=== PATIENT | male | born 1945 | race Caucasian/White ===

== ENCOUNTER 2019-02-15 06:00 | Outpatient (RCR) | payer MEDICARE, OTHER, SELFPAY | END 2019-03-15 00:01 | LOC: APT 06:00 | PROVIDERS: Family Provider Family Medicine; Visit Provider Family Medicine | DX: G89.29 Other chronic pain (principal); M54.9 Dorsalgia, unspecified | CPT/HCPCS: 97110 ×6; 97140 ×3; 97163; 97530 ==

== ENCOUNTER 2019-05-05 07:31 | Outpatient (CLI) | payer MEDICARE, OTHER, SELFPAY ==
--- NOTE | 2019-05-05 07:37 | CT_ITS ---
WS: [id number] CT THORACIC SPINE TECHNIQUE: Noncontrast CT of the thoracic spine with coronal and sagittal reformatted images. CLINICAL INFORMATION: CHRONIC BACK PAIN COMPARISON: None. DLP: 1959.[address] scans at [facility] use at least one of these dose optimization techniques: automat ed exposure control; mA and/or kV adjustment per patient size (includes targeted exams where dose is matched to clinical indication); or iterative reconstruction. FINDINGS: Mild thoracic curve convex right. Moderate spondylitic changes thoracic spine. Mild thoracic kyphosis . Prominent right eccentric bridging osteophytes in the mid and lower thoracic spine with preservatio n of the disc spaces. Findings compatible with diffuse idiopathic skeletal hyperostosis. No acute compression fractures. Vertebral body heights and disc space heights well-preserved. No high -grade central canal stenosis. Multilevel mild to moderate bony foraminal narrowing more prominent at right T3-C4, right T5-6, right T10-11, right T11-12 Moderate facet arthropathy lower thoracic spine. Visualized lungs are well aerated. Aortic calcificat ion. Adrenal glands are normal. CT/CT thoracic spin wo con* [id number] IMPRESSION: 1. Mild thoracic curve convex right. No acute compression fractures. Mild thor acic kyphosis. 2. Anterior bridging osteophytes in the mid and lower thoracic spine with pres ervation of the disc spaces. Findings compatible with diffuse idiopathic skelet al hyperostosis described above. 3. Multilevel mild to moderate bony foraminal narrowing more prominent right T 3-C4, right T5-6, right T10-11, and right T11-12 4. No high-grade central canal stenosis. 5. Moderate facet arthropathy lower thoracic spine.
--- NOTE | 2019-05-05 07:37 | CT_ITS ---
WS: [id number] CT CERVICAL SPINE TECHNIQUE: Noncontrast CT of the cervical spine with coronal and sagittal reformatted images. CLINICAL INFORMATION: CHRONIC BACK PAIN COMPARISON: None. DLP: 677.[address] scans at [facility] use at least one of these dose optimization techniques: automat ed exposure control; mA and/or kV adjustment per patient size (includes targeted exams where dose is matched to clinical indication); or iterative reconstruction. FINDINGS: Normal cervical alignment. Normal C1-2 articulation. Mild spondylitic changes. No high-grade central canal stenosis. C2-C3: Normal. C3-C4: Mild disc osteophyte complex with endplate ridging. Mild bilateral bony foraminal narrowing. M ild to moderate facet arthropathy. Mild central canal stenosis. C4-C5: Disc osteophyte complex with endplate ridging. Mild central canal stenosis. Moderate left and mild right bony foraminal narrowing. Moderate facet arthropathy. C5-C6: No significant disc bulging. Moderate right and mild left bony foraminal narrowing. Moderate f acet arthropathy. Spinal canal is patent. C6-C7: Disc osteophyte complex with endplate ridging. Tiny central disc osteophyte protrusion. Modera te right and mild left foraminal narrowing. Mild to moderate facet arthropathy. C7-T1: Osteophytic ridging with mild/moderate right and no significant left foraminal narrowing. Spin al canal is patent. Visualized posterior nasopharynx: Normal. Prevertebral soft tissues: Normal. CT/CT cervical spin wo con* [id number] IMPRESSION: 1. Mild spondylitic changes. Normal cervical alignment. 2. Mild central canal stenosis C3-C4 C4-C5 due to disc osteophyte complexes. 3. Multilevel bony foraminal narrowing worse at left C4-C5, right C5-C6, right C6-7, and right C7-T1. 4. Asymmetric moderate facet arthropathy worse at left C4-C5 and bilateral C5- C6.
== END 2019-05-05 07:32 | disposition home or self-care (01) ==
PROVIDERS: Family Provider Family Medicine; PCP Family Medicine; Visit Provider Family Medicine
DX: M48.02 Spinal stenosis, cervical region (principal); M47.892 Other spondylosis, cervical region; M50.20 Other cervical disc displacement, unspecified cervical region; G89.29 Other chronic pain; M47.814 Spondylosis without myelopathy or radiculopathy, thoracic region; M48.04 Spinal stenosis, thoracic region; M25.78 Osteophyte, vertebrae; M47.812 Spondylosis without myelopathy or radiculopathy, cervical region
CPT/HCPCS: 72125; 72128

== ENCOUNTER → 2020-10-12 09:20 | Outpatient (BNVA) | payer MEDICARE, OTHER, SELFPAY | PROVIDERS: Family Provider Family Medicine; PCP Family Medicine; Visit Provider Surgery | DX: Z20.822 Contact with and (suspected) exposure to COVID-19 (principal) | CPT/HCPCS: 87635 ==

== ENCOUNTER 2020-10-18 11:20 | Day surgery (SDC) | payer MEDICARE, OTHER, SELFPAY ==
--- NOTE | 2020-10-18 12:37 | ANES.PREANE2 ---
Pre-Anesthetic Assessment Pre-Anesthetic Assessment: Height/Weight: Height 1.75 m Weight 86.183 kg Preop Diagnosis: upper gi symptoms Proposed Procedure: Operation Date: 10/18/20 10:15 Proposed Procedures p EGD 88346 k21.9(Not Applicable) - Sean Yu MD Familial anesthetic complications: none Was Beta Michael taken within 24 hours: Yes Was Clonidine taken within 24 hours: N/A Last intake: > 8 hrs Social: Social History: No alcohol Exam: Pre-Anes Outpt Exam: alert, oriented x 3, clear to auscultation bilaterally and regular rate & rhythm Airway: Cervical ROM: WNL MP: 3 Dentition: Full CV/HEM: CV/HEM: CAD (stents in 2018 - holding plavix) and HTN Comments: pacemaker EF 35% per patient unable to achieve > 4 METS GI: GI: GERD Anesthetic Plan: ASA status: 4 Anesthesia: MAC Risk of > 500 ml blood loss (7ml/kg in children): No PFSH Anesthesia PFSH: Medical History ASHD (arteriosclerotic heart disease) Cardiomyopathy Carotid stenosis CHF (congestive heart failure), NYHA class II GERD (gastroesophageal reflux disease) Glaucoma HTN (hypertension) Hyperlipidemia ICD (implantable cardioverter-defibrillator) in place Surgical History History of colonoscopy (~2000) S/P hemorrhoidectomy S/P PTCA (percutaneous transluminal coronary angioplasty) Family History Father , AGE 50 CAD (coronary artery disease) Mother , AGE 77 CHF (congestive heart failure) Social History Smoking and tobacco status: never smoked Second hand smoke exposure: No Alcohol intake: never Lives independently: Yes Household members: spouse Marital status: Current occupational status: retired History of recent travel: No Current gender identity: Male Data Anesthesia Cardiac Studies: No Data to Display
[2020-10-18 12:56] VITALS: BP 136/74; PULSE 72; RESP 18; TEMP 36.4; O2SAT 99
[2020-10-18] MEDS: sodium chloride 0.9% 1,000 ML 30 ML IV (13:07)
--- NOTE | 2020-10-18 13:45 | W.PM.OPSFHP ---
Same Day Surgery H&P Indication for Procedure/HPI DATE OF PROCEDURE: October 18, 2020 CHIEF COMPLAINT/INDICATIONFOR SURGICAL PROCEDURE: GERD/EGD PREOP DIAGNOSIS: upper gi symptoms PLANNED PROCEDRUE: Operation Date: 10/18/20 10:15 Proposed Procedures p EGD 96720 k21.9(Not Applicable) - Sean Yu MD Medications/Allergies* Home Medications Medication Instructions Recorded Confirmed Type alprazolam 0.5 mg tablet 0.5 mg PO TID PRN 05/16/19 10/18/20 History clopidogrel 75 mg tablet 75 mg PO DAILY 05/16/19 10/16/20 History latanoprost 0.005 % eye drops 1 drop OPHTHALMIC (EYE) DAILY 05/16/19 10/18/20 History nitroglycerin 0.4 mg sublingual 0.4 mg SUBLINGUAL Q5M PRN 05/16/19 10/16/20 History tablet olmesartan 20 mg tablet 20 mg PO DAILY 05/18/19 10/18/20 History omeprazole magnesium 20 mg 20 mg PO DAILY 09/15/19 10/18/20 History tablet,delayed release rosuvastatin 10 mg tablet 10 mg PO DAILY 10/03/20 10/18/20 History Allergies/Adverse Reactions Allergy/AdvReac Type Severity Reaction Status Date / Time amlodipine [From Norvasc] Allergy Unknown Unknown Verified 10/16/20 14:19 clonidine Allergy Unknown Unknown Verified 10/16/20 14:19 doxycycline Allergy Unknown Unknown Verified 10/16/20 14:19 hydrochlorothiazide Allergy Unknown Unknown Verified 10/16/20 14:19 lisinopril Allergy Unknown Unknown Verified 10/16/20 14:19 metoprolol Allergy Unknown Unknown Verified 10/16/20 14:19 sulfamethoxazole Allergy Unknown Unknown Verified 10/16/20 14:19 [From Bactrim] trimethoprim [From Bactrim] Allergy Unknown Unknown Verified 10/16/20 14:19 Current Medications: Generic Name Dose Route Start Last Admin Trade Name Freq PRN Reason Stop Dose Admin Sodium Chloride 1,000 mls @ 30 mls/hr 10/18/20 11:45 10/18/20 13:07 Sodium Chloride 0.9% IV 10/19/20 11:44 30 mls/hr .Q24H WADE Administration Pertinent History/Comorbid Conditions* Medical History (Updated 09/24/20 @ 09:24 by Sean Yu MD) ASHD (arteriosclerotic heart disease) Cardiomyopathy Carotid stenosis CHF (congestive heart failure), NYHA class II GERD (gastroesophageal reflux disease) Glaucoma HTN (hypertension) Hyperlipidemia ICD (implantable cardioverter-defibrillator) in place Surgical History (Updated 09/24/20 @ 09:22 by Sean Yu MD) History of colonoscopy (~2000) S/P hemorrhoidectomy S/P PTCA (percutaneous transluminal coronary angioplasty) Family History (Updated 05/16/19 @ 08:33 by Terri Oakley RN) Father, AGE 50 Mother, AGE 77 CAD (coronary artery disease) Father CHF (congestive heart failure) Mother Social History Smoking and tobacco status: never smoked Second hand smoke exposure: No Alcohol intake: never Lives independently: Yes Household members: spouse Marital status: Current occupational status: retired History of recent travel: No Current gender identity: Male Pertinent Exam Findings alert, oriented x 3 and regular rate & rhythm Recommendations Surgery/Procedure today Coding Level of Care Code Acute Private Investigator for Cipriano Roca
--- NOTE | 2020-10-18 15:00 | ANE.PACU2 ---
Inpatient post-anesthesia follow up: Airway intact: Yes Vital signs: Temperature 97.9 F Pulse Rate 64 Respiratory Rate 16 Blood Pressure 135/68 Pulse Oximetry 96 Oxygen Delivery Me thod Room Air Oxygen Flow Rate 3 Fraction of Inspir ed Oxygen Hydration adequate: Yes Nausea and vomiting: No Pain level: 1 Mental status: Baseline
[2020-10-18 15:03] VITALS: BP 118/62; PULSE 71; RESP 18; TEMP 36.3; O2SAT 90
[2020-10-18 15:20] VITALS: BP 135/68; PULSE 64; RESP 16; TEMP 36.6; O2SAT 96
== END 2020-10-18 15:45 | disposition home or self-care (01) ==
PROVIDERS: PCP Family Medicine; Visit Provider Surgery
PROC: 0DJ08ZZ Inspection of Upper Intestinal Tract, Via Natural or Artificial Opening Endoscopic (ICD-10-PCS; CPT 43235; principal; 2020-10-18 10:15)
DX: K21.9 Gastro-esophageal reflux disease without esophagitis (principal); K29.70 Gastritis, unspecified, without bleeding; K57.30 Diverticulosis of large intestine without perforation or abscess without bleeding; I25.10 Atherosclerotic heart disease of native coronary artery without angina pectoris; Z95.5 Presence of coronary angioplasty implant and graft; I10 Essential (primary) hypertension; Z95.0 Presence of cardiac pacemaker; I11.0 Hypertensive heart disease with heart failure; I50.9 Heart failure, unspecified; E78.5 Hyperlipidemia, unspecified
CPT/HCPCS: 43239; 88305; 96360; 96361; J2704; J7030

== ENCOUNTER 2020-10-26 11:17 | Outpatient (CLI) | payer MEDICARE, OTHER, SELFPAY ==
[2020-10-26] MEDS: iohexol 300 mg/mL 50 mL Btl PO (11:36)
--- NOTE | 2020-10-26 13:00 | CT_ITS ---
WS: [id number] CT scan of the abdomen and pelvis with Oral and IV contrast. Additional two-dimensional coronal and s agittal reconstruction was performed. 10/26/2020 Clinical Data: K57.10 - Diverticulosis of small intestine without perfor... Comparison: None. DLP: 1146.[address] scans at [facility] use at least one of these dose optimization techniques: automat ed exposure control; mA and/or kV adjustment per patient size (includes targeted exams where dose is matched to clinical indication); or iterative reconstruction. Findings: The lower lungs show no nodules, masses or effusions. Pacemaker wires are in the right ventricle. Th e liver, spleen, adrenal glands and pancreas are normal. There are small gallstones in the gallbladde r. The kidneys show equal bilateral contrast excretion with no cyst or masses. The abdominal aorta is normal in size. No appendicitis or diverticulitis is seen. Oral contrast is in the stomach, small bowel and ascending colon and there is no bowel dilatation. No abscess, adenopathy, ascites, mass, obstruction or free a ir is seen. The bladder is unremarkable. No inguinal hernia is seen. The bones of the lower thorax, lumbar spine, pelvis, and hips show only degenerative disc disease at L5-S1. CT/CT abdomen pelvis w con* [id number] Impression: 1. Negative for acute intra-abdominal or pelvic abnormalities. 2. Small gallstones.
[2020-10-26 13:08] LABS: Blood Urea Nitrogen 17 mg/dL (8-23)
[2020-10-26] MEDS: iodixanol 320 mg/mL 100mL Btl IV (13:14)
== END 2020-10-26 11:18 | disposition home or self-care (01) ==
LOC: RADWPI 11:20
PROVIDERS: PCP Family Medicine; Visit Provider Surgery
DX: K57.10 Diverticulosis of small intestine without perforation or abscess without bleeding (principal); K80.80 Other cholelithiasis without obstruction
CPT/HCPCS: 74177; 82565; 84520; Q9967

== ENCOUNTER 2020-12-03 15:40 | Outpatient (CLI) | payer MEDICARE, OTHER, SELFPAY ==
--- NOTE | 2020-12-03 15:45 | USCV_ITS ---
Bobo Obdulio Age: 75 Gender: M : 1945 Exam Date: 12/03/2020 16:06 Ordering Phys: Juanjo Esparza M.D ([email or web address]) Technologist: RENETTA Exam Location: [facility] [place] Indication: HEART FAILURE BP: 118 / 65 HR: 61 Rhythm: Sinus Technical Quality: Adequate MEASUREMENTS (Male / Female) Normal Values 2D ECHO LV Diastolic Diameter PLAX 5.4 cm 4.2 - 5.9 / 3.9 - 5.3 cm LV Systolic Diameter PLAX 4.7 cm IVS Diastolic Thickness 0.6 cm 0.6 - 1.0 / 0.6 - 0.9 cm IVS Systolic Thickness 0.9 cm LVPW Diastolic Thickness 0.8 cm 0.6 - 1.0 / 0.6 - 0.9 cm LVPW Systolic Thickness 0.8 cm LVOT Diameter 2.0 cm LV Ejection Fraction 2D Teich 29.0 % LV Ejection Fraction MOD 2C 35.1 % LV Ejection Fraction 2C AL 34.3 % LA Diameter 3.7 cm LA Width 3.6 cm LA Height 5.5 cm RA Width 5.2 cm RA Height 4.3 cm Aorta at Sinotubular Diameter 2.1 cm DOPPLER AV Peak Velocity 114.0 cm/s LVOT Peak Velocity 59.0 cm/s AV Area Cont Eq vti 1.8 cm squared AV Area Cont Eq pk 1.7 cm squared MV Peak Velocity 548.0 cm/s MV Area PHT 4.5 cm squared Mitral E to A Ratio 1.0 MV E' Velocity 74.0 cm/s TR Peak Velocity 236.0 cm/s TR Peak Gradient 22.3 mmHg TR Mean Velocity 166.4 cm/s TR Mean Gradient 11.8 mmHg TR Velocity Time Integral 74.2 cm Right Atrial Pressure 3.0 mmHg Pulmonary Artery Systolic Pressu 25.3 mmHg PV Peak Velocity 62.0 cm/s RV Acceleration Time 0.1 s RV Ejection Time 0.3 s RV AcT/ET 0.4 FINDINGS Left Ventricle Left ventricle is mildly dilated. LV systolic function is severely reduced with approximate EF of 20-25%. Accurate assessment of regional wall motion abnormalities not possible because of poor visualization. Grade 2 diastolic dysfunction Right Ventricle The right ventricle is normal in size and function. Right Atrium The right atrium is normal in size. Left Atrium The left atrium is normal in size. Mitral Valve Structurally normal mitral valve without significant stenosis or prolapse. There is trace mitral regurgitation. Aortic Valve Aortic valve is thickened without stenosis. There is no aortic regurgitation. Tricuspid Valve Structurally normal tricuspid valve without significant stenosis or regurgitation. Insufficient TR jet to calculate RVSP Pulmonic Valve Structurally normal pulmonic valve without significant stenosis. There is no pulmonic regurgitation. Pericardium Normal pericardium without effusion. Aorta Normal ascending aorta dimension. CONCLUSIONS Technically limited quality echocardiogram because of poor ultrasonic windows LV is dilated LV systolic function is severely reduced with EF of 20-25% Grade 2 diastolic dysfunction Trace mitral regurgitation Compared to prior echocardiogram from 2018, no significant changes are noted Juanjo Esparza MD (Electronically Signed) Final Date: 09 December 2020 12:15 S
== END 2020-12-03 15:41 | disposition home or self-care (01) ==
LOC: US 15:41
PROVIDERS: PCP Family Medicine; Visit Provider Internal Medicine
DX: I50.9 Heart failure, unspecified (principal); I34.0 Nonrheumatic mitral (valve) insufficiency
CPT/HCPCS: 93306

== ENCOUNTER 2020-12-04 09:15 | Outpatient (CLI) | payer MEDICARE, OTHER, SELFPAY ==
--- NOTE | 2020-12-04 09:30 | US_ITS ---
WS: [id number] ULTRASOUND ABDOMEN LIMITED CLINICAL INFORMATION: R10.9 - Unspecified abdominal pain COMPARISON: None. FINDINGS: Prominent bowel gas Liver Size: Normal. Craniocaudal length: 13.7 cm. Echogenicity: Normal. Surface nodularity: None. Mass (size and location): None. Bile ducts Intrahepatic ducts: Normal. Common bile duct diameter: 0.4 cm. Gallbladder Normal. Gallstones: None. Gallbladder sludge: None. Gallbladder wall thickening: None. Pericholecystic fluid: None. Sonographic Priest sign: Absent. Pancreas Normal as visualized. Right kidney: Normal. Hydronephrosis: None. Size: 9.5 cm x 4.7 cm x 5.5 cm. Abdominal aorta and IVC Visualized portions are normal. Ascites: None. US/US gall bladder [id number] IMPRESSION: Normal abdominal ultrasound. Prominent bowel gas.
== END 2020-12-04 09:16 | disposition home or self-care (01) ==
LOC: US 09:17
PROVIDERS: PCP Family Medicine; Visit Provider Surgery
DX: R10.9 Unspecified abdominal pain (principal)
CPT/HCPCS: 76705

== ENCOUNTER 2020-12-07 08:55 | Outpatient (CLI) | payer MEDICARE, OTHER, SELFPAY ==
--- NOTE | 2020-12-07 10:00 | NM_ITS ---
WS: [id number] NUCLEAR MEDICINE HIDA SCAN CLINICAL INFORMATION: R10.9 - Unspecified abdominal pain TECHNIQUE: Following intravenous administration of 4.2 mCi of technetium 99m mebrofenin, images of th e abdomen were obtained over the course of 60 minutes. Next, gallbladder ejection fraction was determ ined by obtaining preprandial and one-hour postprandial images of the gallbladder following oral riccardo stion of Ensure. COMPARISON: Ultrasound November 2020 FINDINGS: Normal hepatic uptake at 5 minutes. Gallbladder is visualized by 10 minutes. No evidence of acute cho lecystitis. Normal hepatic excretion. Normal common bile duct activity. Small bowel activity is visua lized. Gallbladder ejection fraction 86% within normal limits. No evidence of chronic cholecystitis. NM/NM hepatobiliary w phar* [id number] IMPRESSION: 1. No evidence of acute or chronic cholecystitis. 2. Gallbladder ejection fraction 86% within normal limits.
== END 2020-12-07 08:56 | disposition home or self-care (01) ==
LOC: RAD 08:59
PROVIDERS: PCP Family Medicine; Visit Provider Surgery
DX: R10.9 Unspecified abdominal pain (principal)
CPT/HCPCS: 78227; A9537

== ENCOUNTER 2020-12-23 23:02 | Inpatient (IN) | payer MEDICARE, OTHER, SELFPAY ==
[2020-12-23 23:04] VITALS: BP 139/88; PULSE 80; RESP 20; O2SAT 100; BMI 28.8
--- NOTE | 2020-12-23 23:18 | XRR_ITS ---
PROCEDURE INFORMATION: Exam: XR Chest Exam date and time: 12/23/2020 11:18 PM Age: 75 years old Clinical indication: Other: V tach; Prior surgery; Surgery date: 6+ months; Surgery type: Defib; Additional info: Cp TECHNIQUE: Imaging protocol: XR of the chest. Views: 1 view. COMPARISON: CR Chest 1 [place] [id number] 11/11/2017 12:49 PM FINDINGS: Tubes, catheters and devices: Left chest ICD with unremarkable positioning. Lungs: Unremarkable. No consolidation. Pleural spaces: Unremarkable. No pleural effusion. No pneumothorax. Heart/Mediastinum: Unremarkable. No cardiomegaly. Bones/joints: Unremarkable. XR/XR chest 1V portable [id number] IMPRESSION: No acute pulmonary disease. Radiation Dose CTDIVOL = (mGy): DLP = (mGy-cm)
--- NOTE | 2020-12-23 23:19 | ECG_ITS ---
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 Measurements Intervals [place] Rate: 84 P: 192 NC: 179 QRS: -78 QRSD: 247 T: 115 QT: 462 QTc: 549 Interpretive Statements ELECTRONIC ATRIAL PACEMAKER ELECTRONIC VENTRICULAR PACEMAKER MARKED ST ELEVATION, CONSIDER ANTERIOR INJURY [MARKED ST ELEVATION W/O NORMALLY INFLECTED T-WAVE IN V2-V5] ACUTE VA Compared to ECG 11/09/2017 09:19:44 ST (T wave) deviation now present Sinus rhythm no longer present Right bundle-branch block no longer present Left posterior fascicular block no longer present Myocardial infarct finding still present Electronically Signed On 12-24-2020 14:25:39 CDT by Juanjo Esparza M.D. [id number]
--- NOTE | 2020-12-23 23:24 | PC.NURSE ---
EMS placed 20G IV to left hand infiltrated. IV dc'd.
[2020-12-23 23:29] LABS: Basophils # 0.1 10^3/uL (0.0-0.1); Basophils % 0.7 %; Eosinophils # 0.5 10^3/uL (0.0-0.8); Eosinophils % 4.8 %; Hemoglobin 14.7 g/dL (11.7-16.6); Lymphocytes # 2.6 10^3/uL (0.8-4.8); Mean Corpuscular Hemoglobin 27.4 pg (28.0-34.0); Mean Corpuscular Volume 85.8 fl (80-94); Mean Platelet Volume 11.2 fL (7.4-10.4); Monocytes # 0.7 10^3/uL (0.2-0.9); Monocytes % 6.8 %; Neutrophils # 6.37 10^3/uL (1.8-7.7); Neutrophils % 62.4 %; Nucleated Red Blood Cells % 0 %; Platelet Count 173 10^3/cmm (130-400); Red Blood Count 5.36 10^6/uL (4.1-5.3); Red Cell Distribution Width 16.2 % (12.1-15.1); White Blood Count 10.2 10^3/uL (4.0-10.0)
[2020-12-23 23:39] LABS: INR 1.03 (0.8-1.2)
[2020-12-23 23:46] LABS: Troponin(5th) Baseline 46 ng/L (0-15)
[2020-12-23 23:56] LABS: Alanine Aminotransferase 20 U/L (0-41); Albumin Level 3.7 g/dL (3.5-5.2); Alkaline Phosphatase 115 IU/L (40-130); Anion Gap 16.3 (5-19); Aspartate Amino Transferase 31 U/L (0-40); Blood Urea Nitrogen 16 mg/dL (8-23); Calcium 8.8 mg/dL (8.5-10.5); Carbon Dioxide 22 mmol/L (22-29); Chloride 105 mmol/L (98-107); Creatine Phosphokinase 134 U/L (39-308); Globulin 3.3 g/dL (1.3-4.6); Glucose 124 mg/dL (65-115); NT Pro B Type Natriuretic Pept 568 pg/mL (0-125); Osmolality Calculated 291 mOsm/kg (285-295); Potassium 4.3 mmol/L (3.5-5.1); Sodium 139 mmol/L (136-145); Total Bilirubin 0.4 mg/dL (0.15-1.2)
[2020-12-24] VITALS (49 sets, daily range): BP systolic 93–156; BP diastolic 47–108; PULSE 61–85; RESP 14–27; TEMP 35.8–37.4; O2SAT 89–99
--- NOTE | 2020-12-24 01:19 | ECG_ITS ---
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 Measurements Intervals [place] Rate: 68 P: 28 NH: 208 QRS: -77 QRSD: 240 T: 99 QT: 470 QTc: 500 Interpretive Statements ELECTRONIC VENTRICULAR PACEMAKER MARKED ST ELEVATION, CONSIDER ANTERIOR INJURY [MARKED ST ELEVATION W/O NORMALLY INFLECTED T-WAVE IN V2-V5] Compared to ECG 12/23/2020 23:03:04 Atrial-paced complex(es) or rhythm no longer present ST (T wave) deviation still present Myocardial infarct finding still present Electronically Signed On 12-24-2020 15:55:03 CDT by Juanjo Esparza M.D. [email or web address]
--- NOTE | 2020-12-24 02:46 | W.ED.ARRPALP ---
HPI - Arrhythmia/Palpitations General: Chief Complaint: Arrhythmia/Palpitations Stated Complaint: v tach History of Present Illness: HPI narrative: 75-year-old male with a history of coronary disease. He had 4 stents placed back in 2018. He is pacemaker dependent. He had an episode of chest discomfort at home with diaphoresis, dizziness, near syncope. He was found to be in ventricular tachycardia with a blood pressure 60 systolic in the field, and cardioverted onsite. His chest pain is essentially resolved. He is mildly short of breath. MD complaint: heart racing and palpitations Onset (ago): hour(s) Duration: constant Severity: severe Context: occurred during rest (Watching television) Arrhythmia history: pacemaker Associated symptoms: Reports diaphoresis, nausea, pre-syncope, sense of impending doom and short of breath; Deny vomiting Treatments prior to arrival: cardioversion Review of Systems Const: Reports: diaphoresis Eyes: Reports: blurry vision Card: Reports: chest pain, palpitations and pre-syncope Resp: Reports: dyspnea; Denies: productive cough or non-productive cough GI: Reports: nausea; Denies: abdominal pain or vomiting PFSH ED PFSH: Medical History ASHD (arteriosclerotic heart disease) Cardiomyopathy Carotid stenosis CHF (congestive heart failure), NYHA class II GERD (gastroesophageal reflux disease) Glaucoma HTN (hypertension) Hyperlipidemia ICD (implantable cardioverter-defibrillator) in place Surgical History H/O esophagogastroduodenoscopy (10/18/20) History of colonoscopy (~2000) S/P hemorrhoidectomy S/P PTCA (percutaneous transluminal coronary angioplasty) Family History Father , AGE 50 CAD (coronary artery disease) Mother , AGE 77 CHF (congestive heart failure) Social History Second hand smoke exposure: No Alcohol intake: never Lives independently: Yes Household members: spouse Marital status: Current occupational status: retired History of recent travel: No Current gender identity: Male Physical Exam Const: COMMON NORMALS: no acute distress, patient oriented x3 and alert GENERAL APPEARANCE: not ill appearing HENMT: COMMON NORMALS: normocephalic HEAD & SCALP: normocephalic Eye: COMMON NORMALS: EOMs intact bilaterally Chest: COMMONS NORMALS: normal inspection of the chest Resp: COMMON NORMALS: normal respiratory effort, No use of accessory muscles and clear to auscultation bilaterally AUSCULTATION: clear to auscultation bilaterally Cardio: COMMON NORMALS: regular rate and regular rhythm RATE: regular rate RHYTHM: regular rhythm GI: COMMON NORMALS: Normal to inspection, nondistended, normoactive bowel sounds present, Soft to palpation and non-tender PALPATION: Yes Soft to palpation Neuro: COMMON NORMALS: patient oriented x3 SENSORIUM/ORIENTATION: Yes alert Course Consultations: Consultation #1: yen Consultation #2: Isaias Vital Signs: Vital signs: Vital Signs Temperature 97.8 F 12/24/20 02:52 Pulse Rate 69 12/24/20 02:52 Respiratory Rate 17 12/24/20 02:52 Blood Pressure 141/79 12/24/20 02:52 Pulse Oximetry 96 12/24/20 02:52 MDM - Arrhythmia/Palpitations MDM Narrative: Medical decision making narrative: 75-year-old male patient cardioverted in the field for ventricular tachycardia. His symptoms are minimal at this point. He is little short of breath. His EKG shows a paced rhythm. He has been paced on the monitor. His vital signs are otherwise stable. His chest x-ray is negative. His first troponin is mildly elevated, but second 1 is 518 indicative of ventricular tachycardia and cardioversion his 6-hour troponin will be followed. We consulted cardiology from the ER. Recommendations, since the patient has not had another arrhythmia and is paced, or no antiarrhythmics at this point, and watch closely in the ICU for need for amiodarone given any further arrhythmias. He will see the patient later in the morning Lab Data: Labs: Lab Results 12/23/20 12/23/20 12/23/20 23:19 23:19 23:19 WBC 10.2 10^3/uL H 10 ^3/uL (4.0-10.0) RBC 5.36 10^6/uL H 10 ^6/uL (4.1-5.3) Hgb 14.7 g/dL g/dL (11.7-16.6) Hct 46.0 % % (42.0-52.0) MCV 85.8 fl fl (80-94) MCH 27.4 pg L pg (28.0-34.0) MCHC 32.0 g/dL g/dL (30.0-36.0) RDW 16.2 % H % (12.1-15.1) Plt Count 173 10^3/cmm 10^3 /cmm (130-400) MPV 11.2 fL H fL (7.4-10.4) Neut % (Auto) 62.4 % % Lymph % (Auto) 25.0 % % [place] % (Auto) 6.8 % % Eos % (Auto) 4.8 % % Baso % (Auto) 0.7 % % Neut # (Auto) 6.37 10^3/uL 10^3 /uL (1.8-7.7) Lymph # (Auto) 2.6 10^3/uL 10^3/ uL (0.8-4.8) [place] # (Auto) 0.7 10^3/uL 10^3/ uL (0.2-0.9) Eos # (Auto) 0.5 10^3/uL 10^3/ uL (0.0-0.8) Baso # (Auto) 0.1 10^3/uL 10^3/ uL (0.0-0.1) Nucleated RBC % (a uto) 0 % % Nucleated RBCs # 0.0 /100WBC /100W BC PT 13.80 SECONDS SEC ONDS (12.1-14.9) INR 1.03 (0.8-1.2) APTT 25.0 SECONDS SECO NDS (23.9-36.7) Sodium 139 mmol/L mmol/L (136-145) Potassium 4.3 mmol/L mmol/L (3.5-5.1) Chloride 105 mmol/L mmol/L (98-107) Carbon Dioxide 22 mmol/L mmol/L (22-29) Anion Gap 16.3 (5-19) BUN 16 mg/dL mg/dL (8-23) Creatinine 1.3 mg/dL H mg/dL (0.7-1.2) GFR Calculation Not Reportable Glucose 124 mg/dL H mg/dL (65-115) Calculated Osmolal ity 291 mOsm/kg mOsm/ kg (285-295) Calcium 8.8 mg/dL mg/dL (8.5-10.5) Total Bilirubin 0.4 mg/dL mg/dL (0.15-1.2) AST 31 U/L U/L (0-40) ALT 20 U/L U/L (0-41) Alkaline Phosphata se 115 IU/L IU/L (40-130) Creatine Kinase 134 U/L U/L (39-308) Troponin T Baselin e Troponin T 120 Min [place] Delta Troponin T NT-Pro-B Natriuret Pep 568 pg/mL H pg/mL (0-125) Total Protein 7.0 g/dL g/dL (6.6-8.7) Albumin 3.7 g/dL g/dL (3.5-5.2) Globulin 3.3 g/dL g/dL (1.3-4.6) 12/23/20 12/24/20 23:19 01:30 WBC RBC Hgb Hct MCV MCH MCHC RDW Plt Count MPV Neut % (Auto) Lymph % (Auto) [place] % (Auto) Eos % (Auto) Baso % (Auto) Neut # (Auto) Lymph # (Auto) [place] # (Auto) Eos # (Auto) Baso # (Auto) Nucleated RBC % (a uto) Nucleated RBCs # PT INR APTT Sodium Potassium Chloride Carbon Dioxide Anion Gap BUN Creatinine GFR Calculation Glucose Calculated Osmolal ity Calcium Total Bilirubin AST ALT Alkaline Phosphata se Creatine Kinase Troponin T Baselin e 46 ng/L H ng/L (0-15) Troponin T 120 Min [place] 518.8 ng/L H ng/L (0-15) Delta Troponin T 472.8 ABS# H* ABS # (0-10) NT-Pro-B Natriuret Pep Total Protein Albumin Globulin Discharge Plan Discharge Patient Disposition: Admitted As Inpatient Admit Provider: Ivana Santos Clinical Impression: Chest pain, Ventricular tachycardia Condition: Fair Coding Level of Care Code ED Wafer Substrate Tester for g Fwd Exam Detailed
[2020-12-24 02:48] LABS: Troponin 5 2HR 518.8 ng/L (0-15); Troponin 5 2HR Delta 472.8 ABS# (0-10)
--- NOTE | 2020-12-24 04:05 | PC.NURSE ---
Patient admitted to ICU 11, oriented to room, appropriate monitoring systems applied. All questions, concerns answered. Education given. Call light within reach.
[2020-12-24 04:20] LABS: Add Urine Microscopic? NO; Charge for UA Resulting for Rev
--- NOTE | 2020-12-24 04:30 | PC.NURSE ---
Notified Dr. Santos re: EKG discrepancy. According to RT, initial EKG performed upon patient arrival around 2319. Second EKG not performed at appropriate time, instead performed at 0343. Dr. Santos made aware of abnormal EKG, relayed to independent living specialist, patient updated on POC.
[2020-12-24 04:52] LABS: Bilirubin Urine Neg (Negative); Blood Urine Neg (Negative); Glucose Urine UA Norm (Normal); Ketones Urine Negative (Negative); Leukocyte Esterase Urine Negative (Negative); Nitrate Urine Negative (Negative); Protein Urine Neg (Negative); Urine Appearance Clear (CLEAR); Urine Color Yellow (Yellow); Urobilinogen Urine Norm (Negative); pH Urine 5 (5-7)
--- NOTE | 2020-12-24 04:52 | PM.HP ---
Providers/Chief Complaint Admitting Physician: Ivana Santos MD Primary Care Provider: Fermin Carlisle MD Chief Complaint: v tach History of Present Illness Obdulio Broussard is a 75 year old male with a past medical history of coronary artery disease status post PCI in 2019, last known ejection fraction of 20 to 25% from November 2020, presented to the emergency room today after developing ventricular tachycardia. Patient states he was in his usual state of health until 9:30 PM. He took a shower, came out and was watching TV when suddenly he started to feel just not right , , Describes the symptoms as lightheadedness dizziness, awake chest discomfort, he put on his pulse oximeter which showed his heart rate was above 200. His called EMS, upon arrival he was found to be in V. tach, underwent cardioversion in the field. Patient was mentating well during this above event. Thereafter brought into the emergency room. At this present time of evaluation he is complaining of some discomfort between his shoulder blades, however states he has had this since cardioversion. Noted to have a new oxygen requirement of 3 to 4 L/min. Saturating 89% on room air. Patient has had 3 to 4 weeks of dry cough, states that he often has allergic manifestations during the fall and his needs steroids occasionally. No history of fever. Vaccinated with 2 doses Moderna mRNA vaccine series, completed June 2020. As an outpatient he is on Plavix, not on aspirin given history of nonerosive gastritis. 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 He is also being treated for H. pylori, recently completed antibiotics. Review of Systems General: Reports: 10 or more systems reviewed and unremarkable except in HPI and below Const: Denies: fever(s), chills or body aches Eyes: Denies: change in vision, blurry vision or photophobia ENMT: Reports: hoarseness; Denies: throat pain, enlarged tonsils, odynophagia or nasal congestion Card: Denies: chest pain, palpitations, irregular heart rhythm, edema, swelling of feet/ankles, lightheadedness, pre-syncope, dyspnea on exertion or orthopnea Resp: Denies: dyspnea, productive cough, non-productive cough, wheezing, stridor, pain on inspiration, change in phlegm color, hemoptysis or chest congestion GI: Denies: abdominal pain, nausea, vomiting, hematemesis, coffee ground emesis, dysphagia, heartburn, diarrhea, constipation, GI cramping, change in stool character, hematochezia or melena : Denies: flank pain, dysuria, urinary frequency, urinary urgency, urinary hesitancy or hematuria Musc: Denies: neck pain, back pain, extremity pain, joint swelling, joint warmth or deformity Neuro: Denies: headache(s), numbness in extremities, weakness in extremities, sensory changes, difficulty walking, frequent falls, dizziness, vertigo, behavioral changes, Slurred speech present or seizure-like activity Psych: Denies: anxiety, depression, suicidal ideation or homicidal ideation Endo: Denies: polyuria, polydipsia, tired all the time, cold intolerance or hot flashes Bird/Lymph: Denies: easy bruising or easy bleeding Medications/Allergies Home Medications Medication Instructions Recorded Confirmed Last Taken Type alprazolam 0.5 mg tablet 0.5 mg PO TID PRN 05/16/19 12/17/20 10/17/20 History clopidogrel 75 mg tablet 75 mg PO DAILY 05/16/19 12/17/20 10/12/20 History latanoprost 0.005 % eye drops 1 drop OPHTHALMIC (EYE) DAILY 05/16/19 12/17/20 10/17/20 History nitroglycerin 0.4 mg sublingual 0.4 mg SUBLINGUAL Q5M PRN 05/16/19 12/17/20 Unknown History tablet olmesartan 20 mg tablet 20 mg PO DAILY 05/18/19 12/17/20 10/18/20 History omeprazole magnesium 20 mg 20 mg PO DAILY 09/15/19 12/17/20 10/17/20 History tablet,delayed release carvedilol 3.125 mg tablet 6.25 mg PO BID #60 tab 03/29/20 12/17/20 10/18/20 Rx rosuvastatin 10 mg tablet 10 mg PO DAILY 10/03/20 12/17/20 10/17/20 History omeprazole 40 mg capsule,delayed 40 mg PO BID #42 cap 11/13/20 12/17/20 Unknown Rx release dexlansoprazole 30 mg 30 mg PO BID #60 cap 12/17/20 12/17/20 Unknown Rx capsule,biphase delayed release Allergies Allergy/AdvReac Type Severity Reaction Status Date / Time amlodipine [From Norvasc] Allergy Unknown Unknown Verified 10/16/20 14:19 clonidine Allergy Unknown Unknown Verified 10/16/20 14:19 doxycycline Allergy Unknown Unknown Verified 10/16/20 14:19 hydrochlorothiazide Allergy Unknown Unknown Verified 10/16/20 14:19 lisinopril Allergy Unknown Unknown Verified 10/16/20 14:19 metoprolol Allergy Unknown Unknown Verified 10/16/20 14:19 sulfamethoxazole Allergy Unknown Unknown Verified 10/16/20 14:19 [From Bactrim] trimethoprim [From Bactrim] Allergy Unknown Unknown Verified 10/16/20 14:19 PFSH Acute PFSH: Medical History ASHD (arteriosclerotic heart disease) Cardiomyopathy Carotid stenosis CHF (congestive heart failure), NYHA class II GERD (gastroesophageal reflux disease) Glaucoma HTN (hypertension) Hyperlipidemia ICD (implantable cardioverter-defibrillator) in place Surgical History H/O esophagogastroduodenoscopy (10/18/20) History of colonoscopy (~2000) S/P hemorrhoidectomy S/P PTCA (percutaneous transluminal coronary angioplasty) Family History Father , AGE 50 CAD (coronary artery disease) Mother , AGE 77 CHF (congestive heart failure) Social History Second hand smoke exposure: No Alcohol intake: never Lives independently: Yes Household members: spouse Marital status: Current occupational status: retired History of recent travel: No Current gender identity: Male Vitals/I&O/Wt Last Vital Signs Temp 97.8 F 12/24/20 02:52 Pulse 72 12/24/20 03:25 Resp 18 12/24/20 03:25 BP 131/71 12/24/20 03:25 Pulse Ox 89 L 12/24/20 03:25 12/23/20 12/23/20 12/24/20 14:59 22:59 06:59 Output Total 600 / 600 Balance -600 / -600 Weight last 48 hrs Weight 88.451 kg Physical Exam Narrative: EXAM NARRATIVE: General: No acute distress, AO x3 HEENT: PERRLA, pupils bilaterally equal and reactive, pallors not present Chest: Normal vesicular breath sounds, no added sounds, equal good air entry bilaterally CVS: S1-S2 regular, no murmurs, no tachycardia, no gallops, no rubs Abdomen: Soft, nontender, no organomegaly, bowel sounds present Neuro: No focal deficits, no facial deformity, AO x3, power 5/5 in all limbs Data : 12/23/20 23:19 12/23/20 23:19 Attestation for Other Data: I personally reviewed and interpreted the following: Other data: Laboratory Results WBC 10.2 10^3/uL (4.0-10.0) H 12/23/20 23:19 RBC 5.36 10^6/uL (4.1-5.3) H 12/23/20 23:19 Hgb 14.7 g/dL (11.7-16.6) 12/23/20 23:19 Hct 46.0 % (42.0-52.0) 12/23/20 23:19 MCV 85.8 fl (80-94) 12/23/20 23:19 MCH 27.4 pg (28.0-34.0) L 12/23/20 23:19 MCHC 32.0 g/dL (30.0-36.0) 12/23/20 23:19 RDW 16.2 % (12.1-15.1) H 12/23/20 23:19 Plt Count 173 10^3/cmm (130-400) 12/23/20 23:19 MPV 11.2 fL (7.4-10.4) H 12/23/20 23:19 Neut % (Auto) 62.4 % 12/23/20 23:19 Lymph % (Auto) 25.0 % 12/23/20 23:19 [place] % (Auto) 6.8 % 12/23/20 23:19 Eos % (Auto) 4.8 % 12/23/20 23:19 Baso % (Auto) 0.7 % 12/23/20 23:19 Neut # (Auto) 6.37 10^3/uL (1.8-7.7) 12/23/20 23:19 Lymph # (Auto) 2.6 10^3/uL (0.8-4.8) 12/23/20 23:19 [place] # (Auto) 0.7 10^3/uL (0.2-0.9) 12/23/20 23:19 Eos # (Auto) 0.5 10^3/uL (0.0-0.8) 12/23/20 23:19 Baso # (Auto) 0.1 10^3/uL (0.0-0.1) 12/23/20 23:19 Nucleated RBC % (auto) 0 % 12/23/20 23:19 Nucleated RBCs # 0.0 /100WBC 12/23/20 23:19 PT 13.80 SECONDS (12.1-14.9) 12/23/20 23:19 INR 1.03 (0.8-1.2) 12/23/20 23:19 APTT 25.0 SECONDS (23.9-36.7) 12/23/20 23:19 Sodium 139 mmol/L (136-145) 12/23/20 23:19 Potassium 4.3 mmol/L (3.5-5.1) 12/23/20 23:19 Chloride 105 mmol/L (98-107) 12/23/20 23:19 Carbon Dioxide 22 mmol/L (22-29) 12/23/20 23:19 Anion Gap 16.3 (5-19) 12/23/20 23:19 BUN 16 mg/dL (8-23) 12/23/20 23:19 Creatinine 1.3 mg/dL (0.7-1.2) H 12/23/20 23:19 GFR Calculation Not Reportable 12/23/20 23:19 Glucose 124 mg/dL (65-115) H 12/23/20 23:19 Calculated Osmolality 291 mOsm/kg (285-295) 12/23/20 23:19 Calcium 8.8 mg/dL (8.5-10.5) 12/23/20 23:19 Total Bilirubin 0.4 mg/dL (0.15-1.2) 12/23/20 23:19 AST 31 U/L (0-40) 12/23/20 23:19 ALT 20 U/L (0-41) 12/23/20 23:19 Alkaline Phosphatase 115 IU/L (40-130) 12/23/20 23:19 Creatine Kinase 134 U/L (39-308) 12/23/20 23:19 Troponin T Baseline 46 ng/L (0-15) H 12/23/20 23:19 Troponin T 120 Minute 518.8 ng/L (0-15) H 12/24/20 01:30 Delta Troponin T 472.8 ABS# (0-10) H* 12/24/20 01:30 NT-Pro-B Natriuret Pep 568 pg/mL (0-125) H 12/23/20 23:19 Total Protein 7.0 g/dL (6.6-8.7) 12/23/20 23:19 Albumin 3.7 g/dL (3.5-5.2) 12/23/20 23:19 Globulin 3.3 g/dL (1.3-4.6) 12/23/20 23:19 Urine Color Yellow (Yellow) 12/24/20 03:45 Urine Appearance Clear (CLEAR) 12/24/20 03:45 Urine pH 5 (5-7) 12/24/20 03:45 Ur Specific [place] 1.010 (1.005-1.030) 12/24/20 03:45 Urine Protein Neg (Negative) 12/24/20 03:45 Urine Glucose (UA) Norm (Normal) 12/24/20 03:45 Urine Ketones Negative (Negative) 12/24/20 03:45 Urine Blood Neg (Negative) 12/24/20 03:45 Urine Nitrate Negative (Negative) 12/24/20 03:45 Urine Bilirubin Neg (Negative) 12/24/20 03:45 Urine Urobilinogen Norm mg/dL (Negative) 12/24/20 03:45 Ur Leukocyte Esterase Negative (Negative) 12/24/20 03:45 Impressions Chest X-Ray 12/23/20 23:18 IMPRESSION: No acute pulmonary disease. Radiation Dose CTDIVOL = (mGy): DLP = (mGy-cm) A&P Assessment and plan (1) Ventricular tachycardia: Status: Acute (2) Myocardial infarction: Status: Acute Additional A&P Information Patient presenting today with episode of ventricular tachycardia at home with associated hypotension, status post cardioversion by EMS Currently EKG showing paced rhythm with possibly new ST-T wave changes. Baseline troponin at 50, 2-hour delta greater than 400. Patient complains of vague discomfort between the shoulder blades, compares it similar to arthritis, denies any anterior chest pain. EKG and findings discussed with cardiology, patient likely plan for angiogram this morning. Keep n.p.o. for the same. Aspirin 325 mg x 1 now Start heparin drip. Continue home dose of Plavix 75 mg p.o. daily, continue carvedilol 6.25 twice daily, holding losartan for now pending angiogram and contrast load. Attestations Medical Necessity Statement*: Anticipate greater than 2 midnight admission for above defined care. Coding Level of Care Code Acute Collections Assistant for [facility] [place] Diagnoses Ventricular tachycardia I47.2 Myocardial infarction I21.9
[2020-12-24] MEDS: aspirin 325 mg Tablet PO (05:18)
--- NOTE | 2020-12-24 05:25 | XACV_ITS ---
Exam Room: [facility] Ht: 150 cm Wt: 88 kg BSA: 1.97 m2 Gender: Male : 1945 Any Known Allergies: Other Exam Priority: Routine Procedure(s): Procedure Description: Diagnostic procedure Procedure Description: PCI procedure Procedure Description: Drug Eluting Coronary Stent Procedure Description: PTCA Procedure Description: Miscellaneous Procedure Description: ACT Procedure Description: Coronary Angiography Diagnostic Cath Status: Urgent Diagnostic Findings * INDICATION: Venticular tachycardia and Non ST elevation NC. * Left Main is a short vessel and does not have significant disease. * Circumflex has mild luminal irregularities. * Right Coronary Artery has proximal mild 20-30% stenosis. * Proximal Left Anterior Descending: significant 80% stenosis, SENA: 3 flow. * Mid Left Anterior Descending: obstructive 70% stenosis, SENA: 3 flow. * 1st Diagonal: obstructive 70% stenosis, SENA: 3 flow. * Coronary angiography shows right dominance. PCI Status: Urgent PCI Indication: NSTE - ACS Interventional Findings * Procedure details: We engaged left main artery with a XB 3.5 guide catheter. IV heparin was administered to maintain an ACT above 250 seconds. A 0.014 run-through guidewire was used to cross the stenosis and was placed in LAD . 2.5 x 12 mm semicompliant balloon was used to predilate the stenosis in the proximal LAD ISR. This was followed by placement of a 3.0x12mm Resolute Brielle TEJ. We then advanced wire to diagonal artery and performed balloon angioplasty of the diagonal artery ISR with a 2.5x12mm semi compliant balloon. At this time, another lesion was noted in the mid LAD and it was treated by placement of a 3.0x15mm Resolute Ly TEJ. At this time final angiogram was performed that showed excellent stent expansion, SENA-3 flow and no residual stenosis. Guidewire and guide catheter were removed. 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 * Proximal Left Anterior Descendin% stenosis treated with a AB TREK 2.50X12 RX BALLOON, and MDT R LY 3.0X12 TEJ. 0% residual stenosis, SENA: 3 flow. * Mid Left Anterior Descendin% stenosis treated with a MDT R LY 3.0X15 TEJ. 0% residual stenosis, SENA: 3 flow. * 1st Diagonal: 70% stenosis treated with a AB TREK 2.50X12 RX BALLOON. 0% residual stenosis, SENA: 3 flow. Conclusions 1. Severe proximal and mid LAD stenosis treated with TEJ X 2. Severe ISR of the diagonal artery treated with balloon angioplasty. Recommendations * Transfer back to ICU. * Patient has known low EF and has now presented with Ventricular tachycardia requiring Cardioversion. Given his cardiac function has remained low since his acute NC, he needs ICD placement. * Apirin and Plavix for atleast 1 year. * High intensity statin therapy. * We will consult Dr Casanova for upgrading his pacemaker to ICD. * Outpatient cardiology follow up in 4 weeks. Interventional RX Recommendation: PCI w/o planned CABG Diagnostic RX Recommendation: PCI w/o planned CABG Anticoagulation: Heparin Pressures Phase:Rest AO : 148 / 76 ( 107 ) @ 6:01:00 AM Clinical Evaluation EBL: 5mL-10mL Procedural Details Procedure Consent Obtained. Admit Source: In Patient. Identified patient by full name and date of as verbalized by the patient/guarantor. Does the consent match the physician's order: Yes. Accurate & Complete Informed Consent: Yes. Inpatient/Outpatient History & Physical on Chart: Yes. If H&P is completed, is and addenduem needed: N/A; If yes, is the addendum complete: N/A. Visualize and Verify Site with Patient/Guarantor: N/A. Relevant Radiology Images available: N/A. Pre-op teaching completed and patient verbalized understanding. The risks, benefits, and alternatives of sedation and/or procedure were discussed by physician. The patient agrees to continue. Procedure started. [facility] Clinical Fraility Score: 4: Vulnerable. Assistant Professor Of Theater Indications: Worsening Angina. Chest Pain Symptom Assessment: Atypical Angina. Correct patient, site and procedure confirmed by cath team. Current diagnosis: NSTEMI. PERRLA. 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 Lungs clear x 5 lobes. IV Site on Arrival: 20 gauge in the left anticubital. Pre Procedural Pulses: bilateral radial was 2+. Oxygen started at 2liters/min via nasal canula. right radial was prepped with chloroprep then draped in the usual sterile fashion. right groin was prepped with chloroprep then draped in the usual sterile fashion. Physician notified. Baseline sample Acquired. HR: 79 BPM. Physician arrived. Physician scrubbed in. Immediate Pre-Procedure Time Out. Correct Patient: Yes; Correct Procedure: Yes; Correct Site: Yes; Correct Patient Position: Yes; Correct Supplies: Yes; Dried Flammable Prep: Yes; Blood Products Available: n/a. Lidocaine 1% infiltrated to the right radial. A 5 german TIG catheter in over wire. Hand injection through the sheath. Glidewire inserted through the [place] catheter. Glidewire out. Hand injection performed through the [place] catheter. Catheter out. Unable to obtain radial access. MD attempting to gain access in the Femoral artery. Lidocaine 1% infiltrated to the right groin. Arterial access obtained with micropuncture set. A 5 german JL4 catheter in over wire. Multiple views taken of left coronary artery. Catheter removed over the exchange wire. Multiple views taken of right coronary artery. A 5 german JR4 catheter in over wire. Catheter out. 6 german XB 3.5 guide catheter was inserted over the wire. Runthrough guidewire was advanced through the guide catheter to lesion in the prox LAD. Inflation number : 1 A AB TREK 2.50X12 RX BALLOON was prepped and advanced across the Prox LAD , then inflated to 10 YENNI for 0:06 seconds. Balloon out. Balloon inserted to lesion in the prox LAD. Inflation Number : 1 Gifty Vyas LY 3.0X12 TEJ -Lot Number# [id number] [id number] 03/20/2022 was prepped and advanced across the Prox LAD. The stent was deployed at 14 YENNI for 0:23 seconds. Stent balloon out over wire. Stent inserted to lesion in the prox LAD. Results checked. Runthrough guidewire was advanced through the guide catheter to lesion in the diaganol. Inflation number: 2 The AB TREK 2.50X12 RX BALLOON was reinflated across the 1st Diag, to 12 YENNI for 0:05 seconds. Inflation number: 3 The AB TREK 2.50X12 RX BALLOON was reinflated across the 1st Diag, to 6 YENNI for 0:13 seconds. Inflation number: 4 The AB TREK 2.50X12 RX BALLOON was reinflated across the 1st Diag, to 6 YENNI for 0:09 seconds. Balloon out. Results checked. Wire out. Runthrough guidewire was advanced through the guide catheter to lesion in the mid LAD. Stent inserted to lesion in the mid LAD. Inflation Number : 1 A T Lilliam LY 3.0X15 TEJ -Lot Number# [id number] EXP 08/24/2023 was prepped and advanced across the Mid LAD. The stent was deployed at 12 YENNI for 0:28 seconds. Stent balloon out over wire. Results checked. Wire out. Guide out. JL4 inserted. ACT drawn. Results 233 seconds. Therapeutic limits - pre-heparin administration 90-150 seconds and monitoring heparin during a vascular procedure >250 seconds. Guide catheter out. Lidocaine 1% infiltrated to the right groin. Angioseal placed without complications. Lot # [id number] EXP 08/13/2021 No signs or symptoms of hematoma noted. Sterile dressing applied per usual sterile fashion. Manual pressure held for 3 minutes. A Angio-Seal VIP ([facility]) was successful obtaining hemostatsis at the Right Femoral artery insertion site. A TR Band was successful obtaining hemostatsis at the Right Radial artery insertion site. Post Procedure: Pulses reassessed and unchanged. PERRLA. 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 No VTE prophylaxis required. Medication's Wasted: Lidocaine 1% = 12 mL. Medication's Wasted: Nitro = 49.6 mg. Total IV fluids: 75 mL. Fluoro: 14:01. Contrast type used: Omnipaque 300 mgI/mL, 500 mL bottle. PCI Indication: NSTE. Estimated blood loss: 5mL-10mL. Procedure completed. Patient transferred by w/c to ICU. Vital chart was stopped. Access Site Site: Right Radial artery Sheath Size: 6 Fr Hemostasis Method: TR Band Hemostasis Success: Successful Site: Right Femoral artery Sheath Size: 6 Fr Hemostasis Method: Angio-Seal VIP ([facility]) Hemostasis Success: Successful Procedure Medications Start: 6:11 AM Stop: 6:11 AM Medication: Versed Amount: 1 mg Route: I.V. Start: 6:11 AM Stop: 6:11 AM Medication: Fentanyl Amount: 25 mcg Route: I.V. Start: 6:13 AM Stop: 6:13 AM Medication: Nitrogylcerin Amount: 200 mcg Route: I.A. Start: 6:14 AM Stop: 6:14 AM Medication: Versed Amount: 1 mg Route: I.V. Start: 6:20 AM Stop: 6:20 AM Medication: Versed Amount: 1 mg Route: I.V. Start: 6:20 AM Stop: 6:20 AM Medication: Fentanyl Amount: 25 mcg Route: I.V. Start: 6:33 AM Stop: 6:33 AM Medication: Versed Amount: 1 mg Route: I.V. Start: 6:37 AM Stop: 6:37 AM Medication: Heparin Amount: 9000 units Route: I.V. Start: 7:06 AM Stop: 7:06 AM Medication: Heparin Amount: 2000 units Route: I.V. Start: 7:10 AM Stop: 7:10 AM Medication: Plavix Amount: 600 mg Route: P.O. I, the attending physician, have reviewed and verified all procedure medications. Yes, all medications given per verbal order History/Risk Factors Hypertension: Yes Dyslipidemia: Yes Peripheral Arterial Disease (PAD): No Myocardial Infarction (NC): No Obesity: Yes Renal Disease: No Prior Interventions PCI: Yes CABG: No Valve Surgery: No Date of PCI: 03/16/2018 Report Signatures Finalized by Juanjo Esparza MD on 01/03/2021 08:18 AM
[2020-12-24] MEDS: heparin drip 25,000 UNIT/500 ML PREMIX 24.77 UNIT IV (05:38)
[2020-12-24] MEDS: diphenhydrAMINE 50 mg Capsule PO (05:38)
--- NOTE | 2020-12-24 05:52 | P.CONIM_ITS ---
Providers/Reason For Consult Consulting Physician/Specialty*: Juanjo Esparza MD/ Cardiology Reason for Consult*: Ventricular tachycardia Requesting Physician: Dr Santos Attending Physician: Ivana Santos MD Primary Care Provider: Fermin Carlisle MD History of Present Illness History of Present Illness Obdulio Broussard is a 75 year old male with a history of coronary disease, early in 2019 he underwent an intervention to all 3 coronary vessels. He had a stent placed to the LAD, circumflex and 2 stents to the right coronary artery. He had previously had stents placed in the LAD. He left the hospital the same day and before arriving home he thrombosed the LAD stent and came back with an acute anterior wall MT. This was opened with balloon angioplasty. He was left with an ejection fraction of 25 to 30%. Per patient his EF had improved later on and did not need an ICD. However secondary to sick sinus syndrome he had dual chamber pacemaker put in. He has presented to the hospital after he started feeling dizzy, weak and had chest discomfort while watching TV. He checked pulse ox and heart rate was over 200 bpm. His could not get a blood pressure. EMS was called and found him to be in ventricular tachycardia. He underwent successful cardioversion in the field. His initial troponin was 46 that has trended to more than 500 at 2 hours. He continues having discomfort between the shoulder blades. We had repeated his echo last month which showed EF of 20 to 25%. No more arrhythmias since coming to the hospital. Review of Systems General: Reports: 10 or more systems reviewed and unremarkable except in HPI and below Const: Denies: fever(s), chills or body aches Eyes: Denies: change in vision, blurry vision or photophobia ENMT: Reports: hoarseness; Denies: throat pain, enlarged tonsils, odynophagia or nasal congestion Card: Reports: chest pain and lightheadedness; Denies: palpitations, irregular heart rhythm, edema, swelling of feet/ankles, pre-syncope, dyspnea on exertion or orthopnea Resp: Denies: dyspnea, productive cough, non-productive cough, wheezing, stridor, pain on inspiration, change in phlegm color, hemoptysis or chest congestion GI: Denies: abdominal pain, nausea, vomiting, hematemesis, coffee ground emesis, dysphagia, heartburn, diarrhea, constipation, GI cramping, change in stool character, hematochezia or melena : Denies: flank pain, dysuria, urinary frequency, urinary urgency, urinary hesitancy or hematuria Musc: Denies: neck pain, back pain, extremity pain, joint swelling, joint warmth or deformity Neuro: Denies: headache(s), numbness in extremities, weakness in extremities, sensory changes, difficulty walking, frequent falls, dizziness, vertigo, behavioral changes, Slurred speech present or seizure-like activity Psych: Denies: anxiety, depression, suicidal ideation or homicidal ideation Endo: Denies: polyuria, polydipsia, tired all the time, cold intolerance or hot flashes Bird/Lymph: Denies: easy bruising or easy bleeding Meds/Allergies Home Medications and Allergies Home Medications Medication Instructions Recorded Confirmed Last Taken Type alprazolam 0.5 mg tablet 0.5 mg PO TID PRN 05/16/19 12/17/20 10/17/20 History clopidogrel 75 mg tablet 75 mg PO DAILY 05/16/19 12/17/20 10/12/20 History latanoprost 0.005 % eye drops 1 drop OPHTHALMIC (EYE) DAILY 05/16/19 12/17/20 10/17/20 History nitroglycerin 0.4 mg sublingual 0.4 mg SUBLINGUAL Q5M PRN 05/16/19 12/17/20 Unknown History tablet olmesartan 20 mg tablet 20 mg PO DAILY 05/18/19 12/17/20 10/18/20 History omeprazole magnesium 20 mg 20 mg PO DAILY 09/15/19 12/17/20 10/17/20 History tablet,delayed release carvedilol 3.125 mg tablet 6.25 mg PO BID #60 tab 03/29/20 12/17/20 10/18/20 Rx rosuvastatin 10 mg tablet 10 mg PO DAILY 10/03/20 12/17/20 10/17/20 History omeprazole 40 mg capsule,delayed 40 mg PO BID #42 cap 11/13/20 12/17/20 Unknown Rx release dexlansoprazole 30 mg 30 mg PO BID #60 cap 12/17/20 12/17/20 Unknown Rx capsule,biphase delayed release Allergies Allergy/AdvReac Type Severity Reaction Status Date / Time amlodipine [From [facility]] Allergy Unknown Unknown Verified 10/16/20 14:19 clonidine Allergy Unknown Unknown Verified 10/16/20 14:19 doxycycline Allergy Unknown Unknown Verified 10/16/20 14:19 hydrochlorothiazide Allergy Unknown Unknown Verified 10/16/20 14:19 lisinopril Allergy Unknown Unknown Verified 10/16/20 14:19 metoprolol Allergy Unknown Unknown Verified 10/16/20 14:19 sulfamethoxazole Allergy Unknown Unknown Verified 10/16/20 14:19 [From Bactrim] trimethoprim [From Bactrim] Allergy Unknown Unknown Verified 10/16/20 14:19 Current Medications Current Medications Generic Name Dose Route Start Last Admin Trade Name Freq PRN Reason Stop Dose Admin Heparin Sodium/Sodium Chloride 25,000 unit in 500 mls @ 0 mls/hr 12/24/20 04:30 12/24/20 05:38 Heparin Drip IV 14 unit/kg/hr .Q0M WADE 24.77 mls/hr Administration Protocol Per Protocol PFSH Acute PFSH: Medical History ASHD (arteriosclerotic heart disease) Cardiomyopathy Carotid stenosis CHF (congestive heart failure), NYHA class II GERD (gastroesophageal reflux disease) Glaucoma HTN (hypertension) Hyperlipidemia ICD (implantable cardioverter-defibrillator) in place Surgical History H/O esophagogastroduodenoscopy (10/18/20) History of colonoscopy (~2000) S/P hemorrhoidectomy S/P PTCA (percutaneous transluminal coronary angioplasty) Family History Father , AGE 50 CAD (coronary artery disease) Mother , AGE 77 CHF (congestive heart failure) Social History Second hand smoke exposure: No Alcohol intake: never Lives independently: Yes Household members: spouse Marital status: Current occupational status: retired History of recent travel: No Current gender identity: Male Vitals/I&O/Wt Last Vital Signs Temp 97.8 F 12/24/20 02:52 Pulse 72 12/24/20 03:25 Resp 18 12/24/20 03:25 BP 131/71 10/11/21 03:25 Pulse Ox 89 L 12/24/20 03:25 12/23/20 12/23/20 12/24/20 14:59 22:59 06:59 Output Total 600 / 600 Balance -600 / -600 Weight last 48 hrs Weight 195 lb Physical Exam Narrative: EXAM NARRATIVE: GENERAL: Patient is alert, awake and oriented x3. [] NECK: No jugular vein distension. [] HEENT: No cyanosis. No icterus. No pallor. [] HEART: Regular S1 and S2. No murmur, rub or gallop. [] LUNGS: Clear to auscultate bilaterally. [] ABDOMEN: Soft, nontender and nondistended. Positive bowel sounds. No guarding, rebound or tenderness. [] CENTRAL NERVOUS SYSTEM: Grossly nonfocal. [] EXTREMITIES: Lower extremities with 1+ edema bilaterally. Pulses palpable in the lower extremities, both dorsalis pedis and posterior tibial. [] A&P Assessment and plan (1) NSTEMI (non-ST elevated myocardial infarction): Status: Acute (2) Ventricular tachycardia: Status: Acute (3) CHF (congestive heart failure), NYHA class II: Status: Acute (4) HTN (hypertension): Status: Acute (5) ASHD (arteriosclerotic heart disease): Status: Acute (6) Hyperlipidemia: Status: Acute Patient has presented with ventricular tachycardia. His troponins have increased significantly. This could be secondary to MT versus troponin leak 2/2 cardioversion. Given his EF was below 35% on recent echo and now had VT, he will need upgrade of pacemaker to ICD. We will proceed with coronary angiogram with possible percutaneous coronary intervention today. Risks and benefits of the procedure have been discussed with the patient. He understands the risks and benefits and wants to proceed with the procedure. Continue ICU stay at this time. Keep K > 4 and MG > 2 Thank you for involving us with care of this patient. We will continue to follow. Please call with questions. 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
--- NOTE | 2020-12-24 05:52 | W.PM.OPSUD ---
Surgery/Procedure H&P Update DATE OF PROCEDURE: December 24, 2020 DATE H&P PERFORMED: 12/24/20 H&P UPDATE INFORMATION: I have reviewed H&P completed within last 30 days, I have examined patient prior to procedure and No changes to prior documentation PREOP DIAGNOSIS: Ventricular tachycardia/ NSTEMI PRIMARY INDICATION FOR PROCEDURE: Ventricular tachycardia/NSTEMI PLANNED PROCEDURE: Left heart cath with possible percutaneous coronary intervention PATIENT REASSESSED PRIOR TO SEDATION, WITH NO CHANGE NOTED: Yes PHYSICAL EXAM: alert, oriented x 3, clear to auscultation bilaterally and regular rate & rhythm AIRWAY EVAL/ANESTHESIA PLAN: ASA III, Monitored Anesthesia, Local Anesthesia, Risks, benefits & alternatives of sedation and/or procedure discussed and Patient agrees to continue as planned
--- NOTE | 2020-12-24 05:56 | PC.NURSE ---
Patient taken to CCL with RN.
[2020-12-24 06:25] LABS: Partial Thromboplastin Time 24.2 SECONDS (23.9-36.7)
[2020-12-24] MEDS: ondansetron 2 mg/ML SDV 2 mL 4 MG IVP ×2 (08:01→09:10)
[2020-12-24 08:28] LABS: Basophils # 0.1 10^3/uL (0.0-0.1); Basophils % 0.6 %; Eosinophils # 0.2 10^3/uL (0.0-0.8); Eosinophils % 1.6 %; Hematocrit 50.7 % (42.0-52.0); Hemoglobin 16.8 g/dL (11.7-16.6); Lymphocytes # 2.6 10^3/uL (0.8-4.8); Lymphocytes % 18.5 %; Mean Corpuscular HGB Conc 33.1 g/dL (30.0-36.0); Mean Corpuscular Volume 84.5 fl (80-94); Mean Platelet Volume 11.7 fL (7.4-10.4); Monocytes # 0.9 10^3/uL (0.2-0.9); Monocytes % 6.3 %; Neutrophils # 10.35 10^3/uL (1.8-7.7); Neutrophils % 72.5 %; Nucleated Red Blood Cells % 0 %; Platelet Count 157 10^3/cmm (130-400); Red Cell Distribution Width 17.2 % (12.1-15.1); White Blood Count 14.3 10^3/uL (4.0-10.0)
[2020-12-24] MEDS: alum-mag-hydroxide-sime 30 mL UDC PO (08:38)
[2020-12-24 08:42] LABS: Alanine Aminotransferase 25 U/L (0-41); Albumin Level 3.3 g/dL (3.5-5.2); Alkaline Phosphatase 122 IU/L (40-130); Blood Urea Nitrogen 16 mg/dL (8-23); Calcium 8.6 mg/dL (8.5-10.5); Carbon Dioxide 19 mmol/L (22-29); Chloride 103 mmol/L (98-107); Globulin 3.6 g/dL (1.3-4.6); Glucose 106 mg/dL (65-115); Magnesium 1.9 mg/dL (1.7-2.3); Osmolality Calculated 276 mOsm/kg (285-295); Sodium 132 mmol/L (136-145); Total Bilirubin 0.4 mg/dL (0.15-1.2); Total Protein 6.9 g/dL (6.6-8.7)
[2020-12-24 08:53] LABS: Anion Gap 15.7 (5-19); Aspartate Amino Transferase 119 U/L (0-40); Potassium 5.7 mmol/L (3.5-5.1)
--- NOTE | 2020-12-24 09:01 | ECG_ITS ---
[facility] Test Date: 2020-12-24 Pat Name: Obdulio Broussadr Department: Room: ICU11 Gender: Male Ager Tender: : 1945 Requested By: Juanjo Esparza Order Number: [id number] Jomar MD: Juanjo Esparza M.D. Measurements Intervals [place] Rate: 62 P: 107 MT: 175 QRS: -72 QRSD: 234 T: 112 QT: 482 QTc: 491 Interpretive Statements ELECTRONIC ATRIAL PACEMAKER ELECTRONIC VENTRICULAR PACEMAKER Compared to ECG 12/24/2020 03:48:36 ST (T wave) deviation no longer present Myocardial infarct finding no longer present Electronically Signed On 12-24-2020 15:16:32 CDT by Juanjo Esparza M.D. [id number]
[2020-12-24 09:15] LABS: Troponin 5 6HR 1769 ng/L (0-15)
[2020-12-24 09:16] LABS: Troponin 5 6HR Delta 1251 ng/L (0-12)
--- NOTE | 2020-12-24 09:42 | PC.CHAP ---
Pastoral Care Encounter/Spiritual Assessment Type of Contact [] Declined retail cosmetics sales beauty advisor visit [] Patient/Family/Request visit [] Outpatient visit [] Follow-up visit [] Physician referral [] Code/Alert [x] Routine visit [] Staff referral [] Actively dying [] Patient sleeping [] Family support [] [] Out of room [] Palliative care [] [x] Receiving care in room [] Pre-surgical visit [] Trauma [] Long length of stay [x] ICU visit [] Other: Relational/Emotional Strength [] Patient feels connected with others/family/visitors/staff [] Distress [] Loneliness/isolation [] Abandonment Spirituality of Patient [] Person of Vi [] Attends Samaritan of their Vi [] Believes in Prayer [] Reads Bible or Gnosticism materials [] There are Spiritual issues to be addressed Metal Leaf Layer Interventions [x] Prayer [] Active listening [] Non-anxious presence [] Spiritual/emotional support [] Crisis/trauma care [] Spiritual counseling [] Bereavement support [] Provided bereavement packet [] Provided Bible/devotional materials [] Provided toy/stuffed animal, coloring book to patient or family member [] Provided Communion [] Anointing/[place] [] Salvation [x] Completed spiritual assessment [] Other: Impact on Illness or Injury [] Angry [] Fearful [] Anxious [] Often cries [] Exhaustion [] Unable to work [] Unable to attend jewish [] Unable to walk/stand [] Unable to read [] Unable to drive [] Unable to eat/drink [] Unable to sleep [] Unable to be with family [] Patient intubated [] Other: Summary prayed for patient with staff present Time spent with patient
[2020-12-24] MEDS: pantoprazole DR 40 mg Tablet PO (10:44)
[2020-12-24] MEDS: atorvastatin 40 mg Tablet PO (10:44)
[2020-12-24] MEDS: carvedilol 6.25 mg Tablet PO ×2 (10:44→17:50)
--- NOTE | 2020-12-24 10:55 | PC.NURSE ---
Received patient from boat laborer staff at 0730. BP: 158/107. HR: 67 SPO2: 97%. RR: 24. Temp: 96.4. Patient is alert, buthas mumbled speech. Denies any pain.
--- NOTE | 2020-12-24 10:56 | PC.NURSE ---
At 0950 (about 2 hours since the patient came form slab depiler operator) , Nurse observed that the hematoma the patient came back with from slab depiler operator had grown from the size of a ping pong ball to the size of a golf ball. Nurse applied pressure for 10 minutes. THis dispersed the hematoma. Nurse will continue to monitor. Notified Dr Esparza and Dr Varghese. no new orders received.
--- NOTE | 2020-12-24 11:25 | PC.PHAR ---
PT STATES HE IS UNSURE OF ALL THE NAMES OF THE MEDICATIONS HE TAKES-PTS MATILDE STATES THE PT NORMALLY TAKES CARE OF HIS OWN MEDICATIONS-RX FILLED ON 11/29/20 FOR XANAX 0.5MG TID PRN PTS STATES SHE TAKES THE PT JUST TAKES 1/2 TO 1 TAB HS-PTS STATES THE PT HAS BEEN TAKING ONE TO TWO TABS A DAY OF NITRO-PTS STATES THE PT HAS A IMDUR BOTTLE HE TAKES PRN PTS STATES THE BOTTLE WAS DATED 05/18/2019-PTS STATES THEY DIDNT GET THE DEXILANT STATES IT WAS TO EXPENSIVE STATES THEY JUST BOUGHT PREVACID OTC-NOTES ARE MADE IN THE PHARMACY COMMENTS
[2020-12-24 13:33] LABS: Basophils % 0.3 %; Eosinophils % 0.2 %; Hematocrit 49.6 % (42.0-52.0); Hemoglobin 15.9 g/dL (11.7-16.6); Lymphocytes # 1.4 10^3/uL (0.8-4.8); Lymphocytes % 10.7 %; Mean Corpuscular HGB Conc 32.1 g/dL (30.0-36.0); Mean Corpuscular Hemoglobin 27.6 pg (28.0-34.0); Mean Corpuscular Volume 86.1 fl (80-94); Mean Platelet Volume 11.2 fL (7.4-10.4); Monocytes # 0.6 10^3/uL (0.2-0.9); Monocytes % 4.3 %; Neutrophils # 11.06 10^3/uL (1.8-7.7); Nucleated Red Blood Cells % 0 %; Platelet Count 162 10^3/cmm (130-400); Red Blood Count 5.76 10^6/uL (4.1-5.3); White Blood Count 13.2 10^3/uL (4.0-10.0)
--- NOTE | 2020-12-24 17:01 | PM.CONSULT ---
Providers/Reason For Consult Consulting Physician/Specialty*: Dr. Casanova/cardiothoracic surgery Reason for Consult*: AICD implantation Requesting Physician: Dr. Esparza Attending Physician: Yesenia Varghese MD Primary Care Provider: Fermin Carlisle MD History of Present Illness History of Present Illness HistoryObdulio Broussard is a 75 year old male With severe ischemic cardiomyopathy and ejection fraction of approximately 20 to 25%. Dual-chamber pacemaker approximately 3 years ago due to sick sinus syndrome. He has had prior multiple interventions including the LAD, circumflex and RCA. He represented by EMS early this morning after being found with ventricular tachycardia successfully cardioverted in the field. Secondary to his arrhythmia and elevated troponins, left heart catheterization was also performed earlier today by Dr. Esparza. There apparently was coronary intervention. Due to his presentation with V. tach and severe cardiomyopathy, Dr. Esparza is recommended upgrading his dual-chamber pacemaker to an AICD. Currently, Mr. Broussard is resting comfortably and in ICU bed 11 with his at bedside. He appears to be in sinus rhythm and no substantial arrhythmias have been reported by nursing service since his arrival following cardiac catheterization. It should be noted that the past medical history reports ICD implantation. This is an error. A dual-chamber pacemaker is in position. Review of Systems Const: Reports: fatigue Eyes: Denies: change in vision Card: Reports: chest pain, palpitations, swelling of feet/ankles, lightheadedness, pre-syncope and dyspnea on exertion Resp: Reports: dyspnea (With exertion) GI: Reports: abdominal pain : Denies: difficulty urinating or urinary incontinence Neuro: Reports: headache(s) (When taking nitroglycerin); Denies: weakness in extremities or difficulty walking Meds/Allergies Home Medications and Allergies Home Medications Medication Instructions Recorded Confirmed Last Taken Type alprazolam 0.5 mg tablet 0.5 mg PO TID PRN 05/16/19 12/24/20 10/17/20 History clopidogrel 75 mg tablet 75 mg PO DAILY 05/16/19 12/24/20 10/12/20 History latanoprost 0.005 % eye drops 1 drop OPHTHALMIC (EYE) BEDTIME 05/16/19 12/24/20 10/17/20 History nitroglycerin 0.4 mg sublingual 0.4 mg SUBLINGUAL Q5M PRN 05/16/19 12/24/20 Unknown History tablet olmesartan 20 mg tablet 10 mg PO DAILY 05/18/19 12/24/20 10/18/20 History carvedilol 3.125 mg tablet 6.25 mg PO BID #60 tab 03/29/20 12/24/20 10/18/20 Rx rosuvastatin 10 mg tablet 10 mg PO DAILY 10/03/20 12/24/20 10/17/20 History furosemide [Lasix] 10 mg PO DAILY 12/24/20 12/24/20 Unknown History isosorbide mononitrate See Rx Instructions .ROUTE .COMPLEX 12/24/20 12/24/20 Unknown History lansoprazole [Prevacid 24Hr] 15 mg PO DAILY 12/24/20 12/24/20 Unknown History Allergies Allergy/AdvReac Type Severity Reaction Status Date / Time amlodipine [From Norvas] Allergy Unknown Unknown Verified 10/16/20 14:19 clonidine Allergy Unknown Unknown Verified 10/16/20 14:19 doxycycline Allergy Unknown Unknown Verified 10/16/20 14:19 hydrochlorothiazide Allergy Unknown Unknown Verified 10/16/20 14:19 lisinopril Allergy Unknown Unknown Verified 10/16/20 14:19 metoprolol Allergy Unknown Unknown Verified 10/16/20 14:19 sulfamethoxazole Allergy Unknown Unknown Verified 10/16/20 14:19 [From Bactrim] trimethoprim [From Bactrim] Allergy Unknown Unknown Verified 10/16/20 14:19 Current Medications Current Medications Generic Name Dose Route Start Last Admin Trade Name Freq PRN Reason Stop Dose Admin Al Hydrox/Mg Hydrox/Simethicone 30 ml 12/24/20 07:25 12/24/20 08:38 Telv-Hjx-Laylkrkzj-Starla 30 Ml Udc PO 30 ml Q15M PRN Administration INDIGESTION Atorvastatin Calcium 40 mg 12/24/20 09:00 12/24/20 10:44 Atorvastatin 40 Mg Tablet PO 40 mg DAILY WADE Administration Carvedilol 6.25 mg 12/24/20 09:00 12/24/20 10:44 Carvedilol 6.25 Mg Tablet PO 6.25 mg BID WADE Administration Ondansetron HCl 4 mg 12/24/20 04:22 12/24/20 08:01 Ondansetron 2 Mg/Ml Sdv 2 Ml IVP 4 mg Q8H PRN Administration vomiting, or N/V if npo Pantoprazole Sodium 40 mg 12/24/20 09:00 12/24/20 10:[address] 40 Mg Tablet PO 40 mg DAILY WADE Administration PFSH Acute PFSH: Medical History ASHD (arteriosclerotic heart disease) Cardiomyopathy Carotid stenosis CHF (congestive heart failure), NYHA class II GERD (gastroesophageal reflux disease) Glaucoma HTN (hypertension) Hyperlipidemia ICD (implantable cardioverter-defibrillator) in place Surgical History H/O esophagogastroduodenoscopy (10/18/20) History of colonoscopy (~2000) S/P hemorrhoidectomy S/P PTCA (percutaneous transluminal coronary angioplasty) Family History Father , AGE 50 CAD (coronary artery disease) Mother , AGE 77 CHF (congestive heart failure) Social History Second hand smoke exposure: No Alcohol intake: never Lives independently: Yes Household members: spouse Marital status: Current occupational status: retired History of recent travel: No Current gender identity: Male Vitals/I&O/Wt Last Vital Signs Temp 97.6 F 12/24/20 12:30 Pulse 66 12/24/20 15:45 Resp 19 H 12/24/20 15:00 BP 129/76 12/24/20 15:00 Pulse Ox 98 12/24/20 15:00 12/24/20 12/24/20 12/24/20 06:59 14:59 22:59 Intake Total 60 / 60 240 / 240 Output Total 600 / 600 350 / 350 450 / 800 Balance -540 / -540 -110 / -110 -450 / -560 Weight last 48 hrs Weight 195 lb Physical Exam HENMT: COMMON NORMALS: normocephalic, atraumatic, hearing grossly normal bilaterally and external ears normal HEAD & SCALP: normocephalic and atraumatic EXTERNAL EAR: Yes external ears normal Eye: COMMON NORMALS: Equal, round and reactive pupils present, EOMs intact bilaterally and conjunctivae normal CONJUNCTIVA: Yes conjunctivae normal PUPIL: Yes Equal, round and reactive pupils present Neck/C-Spine: COMMON NORMALS: full ROM and No carotid bruits GENERAL: Yes normal visual inspection and Yes trachea midline Resp: COMMON NORMALS: normal respiratory effort, No retractions, No use of accessory muscles, clear to auscultation bilaterally and percussion normal EFFORT & INSPECTION: Yes able to speak in complete sentences AUSCULTATION: clear to auscultation bilaterally PERCUSSION: percussion normal Cardio: COMMON NORMALS: regular rate, regular rhythm and S1 normal heart sound present RATE: regular rate RHYTHM: regular rhythm HEART SOUNDS: S1 normal heart sound present BRUITS: no carotid bruits PERIPHERAL PULSES: radial pulses present positive bilateral 2+ Extremity: OTHER: 1+ bilateral pretibial and ankle edema Neuro: COMMON NORMALS: no focal motor deficits and no sensory deficits noted A&P Assessment and plan (1) Ventricular tachycardia: Pleasant 75-year-old gentleman with severe ischemic cardiomyopathy and recent admission for sustained ventricular tachycardia which was successfully cardioverted in the field. PTCA performed earlier today by Dr. Esparza. It has been recommended that his dual chamber pacemaker system be upgraded to AICD. This was discussed in detail with Mr. Broussard and his . Rationale for the recommendation was reviewed. Details and risks of the procedure were carefully and frankly discussed. Risks reviewed include the possibility of , stroke, heart attack, major bleeding, infection, pneumonia, pneumothorax requiring chest tube, organ failure, failure to benefit, prolonged hospital stay, pain after the procedure, need for further procedures, early dislodgment of the leads requiring revision, inability to adequately place the lead, inability to complete the procedure, and possible need for long-term followup. All questions were answered. Appropriate consents have been provided for review and signature. We will tentatively plan for AICD implantation around 12 noon tomorrow, December 25, 2020. Status: Acute Consult Attestations Medical Necessity Statement: Ischemic cardiomyopathy with malignant arrhythmia Time Spent in Patient Care: 16 - 35 minutes Coding Level of Care Code Acute Bottling Attendant for [facility] Fwd Diagnoses Ventricular tachycardia I47.2
[2020-12-24 17:17] LABS: Base Excess VBG -0.3 mmol/L (-3.0-3.0); Blood Gas Operator Identificat BD; Blood Gas Sample Site VEIN; Blood Gas Sample Type Venous; PCO2 VBG 29.8 mmHg (41-51); Venous Blood Gas Hematocrit 49.5 % (42-52); pH VBG 7.48 (7.32-7.42)
[2020-12-24] MEDS: mupirocin oint 22 gm 1 APPLIC NOSTRIL-B (17:51)
[2020-12-24] MEDS: chlorhexidine gluconate 4% Btl 118 mL 1 APPLIC TOPICAL (17:53)
[2020-12-24 18:20] LABS: Anion Gap 15.8 (5-19); Blood Urea Nitrogen 15 mg/dL (8-23); Calcium 8.3 mg/dL (8.5-10.5); Carbon Dioxide 19 mmol/L (22-29); Chloride 107 mmol/L (98-107); Glucose 97 mg/dL (65-115); Osmolality Calculated 285 mOsm/kg (285-295); Potassium 4.8 mmol/L (3.5-5.1); Sodium 137 mmol/L (136-145)
--- NOTE | 2020-12-24 19:02 | PC.NURSE ---
Shift Note Frequent safety and comfort rounds continue. Orders and/or nursing care completed as indicated. Patient monitored for response to intervention and treatment(s). Education provided includes upcoming defibrillator placement procedure. SHift summary: Uneventful shift. After returning from pathology laboratory director, additional pressure had to be applied to Right groin cath site due to a small hematoma formation, but it was easily resolved. No new formation or signs of bleeding occured. Pt is scheduled to have a defribrillator/pacemeaker placement procedure tommorow around 1200. NPO after midnight. Signed consent in physical chart.
[2020-12-24] MEDS: ALPRAZolam 0.5 mg Tablet 0.25 MG PO (23:13)
[2020-12-25] VITALS (47 sets, daily range): BP systolic 95–175; BP diastolic 41–116; PULSE 62–81; RESP 8–22; TEMP 36.1–37.3; O2SAT 89–99
--- NOTE | 2020-12-25 | SC_ITS ---
WS: [id number] C-arm FL for Pacemaker REASON FOR EXAM: pacemaker FINDINGS: Intraprocedural AP images of the left chest. Battery pack in place over the left anterior superior chest. Previously placed intact leads transveno us left subclavian to the right atrium and right ventricular apex. New intact lead from the same battery pack transvenous left subclavian to the right ventricular apex. No pneumothorax identified. SC/C-arm FL for Pacemaker IMPRESSION: Additional lead placement as above.
--- NOTE | 2020-12-25 | SCC_ITS ---
Procedure Done: Up Grade of previously placed dual-chamber pacemaker with AICD and AICD lead implantation 152.3 seconds of fluoroscopic guidance, for a cumulative dose of 44.93 mGy, was provided to Dr. Casanova by the radiology department. C-arm images of the chest were saved for the patient's permanent record. [facility]
[2020-12-25 03:54] LABS: Basophils # 0.1 10^3/uL (0.0-0.1); Basophils % 0.6 %; Eosinophils # 0.3 10^3/uL (0.0-0.8); Eosinophils % 1.9 %; Hematocrit 47.4 % (42.0-52.0); Hemoglobin 15.5 g/dL (11.7-16.6); Lymphocytes # 2.4 10^3/uL (0.8-4.8); Lymphocytes % 16.9 %; Mean Corpuscular HGB Conc 32.7 g/dL (30.0-36.0); Mean Corpuscular Hemoglobin 27.5 pg (28.0-34.0); Mean Platelet Volume 11.7 fL (7.4-10.4); Monocytes # 1.1 10^3/uL (0.2-0.9); Nucleated Red Blood Cells % 0 %; Platelet Count 148 10^3/cmm (130-400); Red Blood Count 5.64 10^6/uL (4.1-5.3); Red Cell Distribution Width 16.5 % (12.1-15.1)
[2020-12-25 04:10] LABS: Alanine Aminotransferase 23 U/L (0-41); Albumin Level 3.3 g/dL (3.5-5.2); Alkaline Phosphatase 111 IU/L (40-130); Blood Urea Nitrogen 18 mg/dL (8-23); Calcium 8.3 mg/dL (8.5-10.5); Carbon Dioxide 22 mmol/L (22-29); Chloride 104 mmol/L (98-107); Glucose 98 mg/dL (65-115); Osmolality Calculated 288 mOsm/kg (285-295); Sodium 138 mmol/L (136-145); Total Bilirubin 0.4 mg/dL (0.15-1.2); Total Protein 6.3 g/dL (6.6-8.7)
[2020-12-25 04:12] LABS: Slide Review Slide Review Perform
[2020-12-25 04:17] LABS: Anion Gap 16.9 (5-19); Aspartate Amino Transferase 77 U/L (0-40); Potassium 4.9 mmol/L (3.5-5.1)
--- NOTE | 2020-12-25 07:04 | P.PN_ITS ---
Subjective Subjective: Interval history: Patient is doing well. No complaints of chest pain, shortness of breath or palpitations. Vitals/I&O/Wt Last Vital Signs Temp 99.1 F 12/25/20 04:00 Pulse 63 12/25/20 05:59 Resp 8 L 12/25/20 04:30 BP 135/80 12/25/20 04:30 Pulse Ox 97 12/25/20 04:30 12/24/20 12/25/20 12/25/20 22:59 06:59 14:59 Intake Total 0 / 240 Output Total 450 / 800 500 / 1300 Balance -450 / -560 -500 / -1060 Weight last 48 hrs Weight 195 lb Physical Exam Narrative: EXAM NARRATIVE: GENERAL: Patient is alert, awake and oriented x3. [] NECK: No jugular vein distension. [] HEENT: No cyanosis. No icterus. No pallor. [] HEART: Regular S1 and S2. No murmur, rub or gallop. [] LUNGS: Clear to auscultate bilaterally. [] ABDOMEN: Soft, nontender and nondistended. Positive bowel sounds. No guarding, rebound or tenderness. [] CENTRAL NERVOUS SYSTEM: Grossly nonfocal. [] EXTREMITIES: Lower extremities with 1+ edema bilaterally. Pulses palpable in the lower extremities, both dorsalis pedis and posterior tibial. [] Data : 12/25/20 03:30 12/25/20 03:30 A&P Assessment and plan (1) NSTEMI (non-ST elevated myocardial infarction): Status: Acute (2) Ventricular tachycardia: Status: Acute (3) CHF (congestive heart failure), NYHA class II: Status: Acute (4) HTN (hypertension): Status: Acute (5) ASHD (arteriosclerotic heart disease): Status: Acute (6) Hyperlipidemia: Status: Acute Patient presented with ventricular tachycardia. His troponins increased significantly. Had NSTEMI Given his EF was below 35% on recent echo and now had VT, he will need upgrade of pacemaker to ICD. Plan for upgrade procedure today with Dr Casanova Coronary angiogram showed severe proximal and mid LAD stenosis, treated with TEJ x 2. Also had ISR of diagonal artery, treated with balloon angioplasty. Continue aspirin and Plavix for atleast 1 year Continue ICU stay at this time. Keep K > 4 and MG > 2 Thank you for involving us with care of this patient. We will continue to follow. Please call with questions. Attestations Medical Necessity Statement*: Care expected to cross 2 midnights. Coding Level of Care Code Acute Medical Transcription Radiology for Cipriano Roca Diagnoses NSTEMI (non-ST elevated myocardial infarction) I21.4 Ventricular tachycardia I47.2 CHF (congestive heart failure), NYHA class II I50.9 HTN (hypertension) I10 ASHD (arteriosclerotic heart disease) I25.10 Hyperlipidemia E78.5
--- NOTE | 2020-12-25 07:34 | PM.PN ---
Subjective Subjective: Interval history: Resting comfortably this morning. No arrhythmias reported by nursing service. He has been n.p.o. since midnight. Vitals/I&O/Wt Last Vital Signs Temp 99.1 F 12/25/20 04:00 Pulse 63 12/25/20 05:59 Resp 8 L 12/25/20 04:30 BP 135/80 12/25/20 04:30 Pulse Ox 97 12/25/20 04:30 12/24/20 12/25/20 12/25/20 22:59 06:59 14:59 Intake Total 0 / 240 Output Total 450 / 800 500 / 1300 Balance -450 / -560 -500 / -1060 Weight last 48 hrs Weight 195 lb Physical Exam Resp: COMMON NORMALS: normal respiratory effort and clear to auscultation bilaterally EFFORT & INSPECTION: Yes symmetric chest movement AUSCULTATION: clear to auscultation bilaterally Cardio: COMMON NORMALS: regular rate, regular rhythm, No murmurs present (Cardio) and No rub (Cardio) RATE: regular rate RHYTHM: regular rhythm Data : 12/25/20 03:30 12/25/20 03:30 A&P Assessment and plan (1) Cardiomyopathy: Ischemic cardiomyopathy with malignant arrhythmia (V. tach) Plan: We will plan for upgrade of his dual chamber pacemaker system to AICD at noon today. 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
--- NOTE | 2020-12-25 07:59 | P.ANESASSM_ITS ---
Pre-Anesthetic Assessment Pre-Anesthetic Assessment: Height/Weight: Height 1.75 m Weight 88.451 kg Temp Pulse Resp BP Pulse Ox 99.1 F 63 8 L 135/80 97 12/25/20 04:00 12/25/20 05:59 12/25/20 04:30 12/25/20 04:30 12/25/20 04:30 Preop Diagnosis: Ventricular tachycardia/ NSTEMI Proposed Procedure: Operation Date: 12/24/20 06:00 Proposed Procedures p Cardiac Catheterization(Not Applicable) - Juanjo Espazra M.D Operation Date: 12/25/20 12:00 Proposed Procedures p Defibrillator Placement(Not Applicable) - Kenton Casanova MD Familial anesthetic complications: None Was Beta Michael taken within 24 hours: N/A Was Clonidine taken within 24 hours: N/A Last intake: NPO > 8 hrs (sipping water at 0800) - asked patient to cease any further ingestion of water Social: Social History: No alcohol and No tobacco Exam: Pre-Anes Outpt Exam: alert, oriented x 3, clear to auscultation bilaterally and regular rate & rhythm Airway: Cervical ROM: WNL MP: 3 Dentition: False CV/HEM: CV/HEM: CAD (stents placed) and CHF (Class II) Comments: Sick sinus syndrome w/ pacer in place, patient went into [facility] in field - cardioverted, no further arrythmias since admission Nov 2020 Echo CONCLUSIONS Technically limited quality echocardiogram because of poor ultrasonic windows LV is dilated LV systolic function is severely reduced with EF of 20-25% Grade 2 diastolic dysfunction Trace mitral regurgitation Compared to prior echocardiogram from 2018, no significant changes are noted Anesthetic Plan: ASA status: 4 Anesthesia: MAC Risk of > 500 ml blood loss (7ml/kg in children): No Meds/Allergies Current Medications: Current Medications Generic Name Dose Route Start Last Admin Trade Name Freq PRN Reason Stop Dose Admin Al Hydrox/Mg [place] x/Simethicone 30 ml 12/24/20 07:25 12/24/20 08:38 Rjtz-Yzg-Xuvrgev de-Starla 30 Ml Udc PO 30 ml Q15M PRN Administration INDIGESTION Alprazolam 0.25 mg 12/24/20 07:25 12/24/20 23:13 Alprazolam 0.5 M g Tablet PO 0.25 mg TID PRN Administration ANXIETY Atorvastatin Calci um 40 mg 12/24/20 09:00 12/24/20 10:44 Atorvastatin 40 Mg Tablet PO 40 mg DAILY WADE Administration Carvedilol 6.25 mg 12/24/20 09:00 12/24/20 17:50 Carvedilol 6.25 Mg Tablet PO 6.25 mg BID WADE Administration Chlorhexidine Gluc robert 1 applic 12/24/20 18:00 12/24/20 17:53 Chlorhexidine Gl uconate 4% Btl 118 Ml TOPICAL 1 applic BID WADE Administration Ondansetron HCl 4 mg 12/24/20 04:22 12/24/20 08:01 Ondansetron 2 Mg /Ml Sdv 2 Ml IVP 4 mg Q8H PRN Administration vomiting, or N/V if npo Pantoprazole Sodiu m 40 mg 12/24/20 09:00 12/24/20 10:[address] 40 Mg Tablet PO 40 mg DAILY WADE Administration PFSH Anesthesia PFSH: Medical History (Updated 12/25/20 @ 07:35 by Kenton Casanova MD) ASHD (arteriosclerotic heart disease) Cardiomyopathy Carotid stenosis CHF (congestive heart failure), NYHA class II GERD (gastroesophageal reflux disease) Glaucoma HTN (hypertension) Hyperlipidemia Surgical History H/O esophagogastroduodenoscopy (10/18/20) History of colonoscopy (~2000) S/P hemorrhoidectomy S/P PTCA (percutaneous transluminal coronary angioplasty) Family History Father , AGE 50 CAD (coronary artery disease) Mother , AGE 77 CHF (congestive heart failure) Social History Second hand smoke exposure: No Alcohol intake: never Lives independently: Yes Household members: spouse Marital status: Current occupational status: retired History of recent travel: No Current gender identity: Male Data Anesthesia CBC & Chem 7: 12/25/20 03:30 12/25/20 03:30 Other Labs: Laboratory Results - last 48 hr 12/23/20 12/23/20 12/23/20 23:19 23:19 23:19 WBC 10.2 H RBC 5.36 H Hgb 14.7 Hct 46.0 MCV 85.8 MCH 27.4 L MCHC 32.0 RDW 16.2 H Plt Count 173 MPV 11.2 H Neut % (Auto) 62.4 Lymph % (Auto) 25.0 [place] % (Auto) 6.8 Eos % (Auto) 4.8 Baso % (Auto) 0.7 Neut # (Auto) 6.37 Lymph # (Auto) 2.6 [place] # (Auto) 0.7 Eos # (Auto) 0.5 Baso # (Auto) 0.1 Nucleated RBC % (auto) 0 Nucleated RBCs # 0.0 PT 13.80 INR 1.03 APTT 25.0 Specimen Type Sample Site [place] Test VBG pH VBG pCO2 VBG pO2 VBG HCO3 VBG Base Excess VBG Hematocrit Wood Sash And Frame Carpenter ID Sodium 139 Potassium 4.3 Chloride 105 Carbon Dioxide 22 Anion Gap 16.3 BUN 16 Creatinine 1.3 H GFR Calculation Not Reportable Glucose 124 H Calculated Osmolality 291 Calcium 8.8 Magnesium Total Bilirubin 0.4 AST 31 ALT 20 Alkaline Phosphatase 115 Creatine Kinase 134 Troponin T Baseline Troponin T 120 Minute Delta Troponin T Troponin T Hi Sens 6Hr Troponin T Hi Sens 6Hr Delta NT-Pro-B Natriuret Pep 568 H Total Protein 7.0 Albumin 3.7 Globulin 3.3 Urine Color Urine Appearance Urine pH Ur Specific [place] Urine Protein Urine Glucose (UA) Urine Ketones Urine Blood Urine Nitrate Urine Bilirubin Urine Urobilinogen Ur Leukocyte Esterase 12/23/20 12/24/20 12/24/20 23:19 01:30 03:45 WBC RBC Hgb Hct MCV MCH MCHC RDW Plt Count MPV Neut % (Auto) Lymph % (Auto) [place] % (Auto) Eos % (Auto) Baso % (Auto) Neut # (Auto) Lymph # (Auto) [place] # (Auto) Eos # (Auto) Baso # (Auto) Nucleated RBC % (auto) Nucleated RBCs # PT INR APTT Specimen Type Sample Site Cortes Test VBG pH VBG pCO2 VBG pO2 VBG HCO3 VBG Base Excess VBG Hematocrit [place] Carpenter ID Sodium Potassium Chloride Carbon Dioxide Anion Gap BUN Creatinine GFR Calculation Glucose Calculated Osmolality Calcium Magnesium Total Bilirubin AST ALT Alkaline Phosphatase Creatine Kinase Troponin T Baseline 46 H Troponin T 120 Minute 518.8 H Delta Troponin T 472.8 H* Troponin T Hi Sens 6Hr Troponin T Hi Sens 6Hr Delta NT-Pro-B Natriuret Pep Total Protein Albumin Globulin Urine Color Yellow Urine Appearance Clear Urine pH 5 Ur Specific [place] 1.010 Urine Protein Neg Urine Glucose (UA) Norm Urine Ketones Negative Urine Blood Neg Urine Nitrate Negative Urine Bilirubin Neg Urine Urobilinogen Norm Ur Leukocyte Esterase Negative 12/24/20 12/24/20 12/24/20 05:33 07:55 07:55 WBC 14.3 H RBC 6.00 H Hgb 16.8 H Hct 50.7 MCV 84.5 MCH 28.0 MCHC 33.1 RDW 17.2 H Plt Count 157 MPV 11.7 H Neut % (Auto) 72.5 Lymph % (Auto) 18.5 [place] % (Auto) 6.3 Eos % (Auto) 1.6 Baso % (Auto) 0.6 Neut # (Auto) 10.35 H Lymph # (Auto) 2.6 [place] # (Auto) 0.9 Eos # (Auto) 0.2 Baso # (Auto) 0.1 Nucleated RBC % (auto) 0 Nucleated RBCs # 0.0 PT INR APTT 24.2 Specimen Type Sample Site Cortes Test VBG pH VBG pCO2 VBG pO2 VBG HCO3 VBG Base Excess VBG Hematocrit [place] Carpenter ID Sodium Potassium Chloride Carbon Dioxide Anion Gap BUN Creatinine GFR Calculation Glucose Calculated Osmolality Calcium Magnesium Total Bilirubin AST ALT Alkaline Phosphatase Creatine Kinase Troponin T Baseline Troponin T 120 Minute Delta Troponin T Troponin T Hi Sens 6Hr 1769 H Troponin T Hi Sens 6Hr Delta 1251 H* NT-Pro-B Natriuret Pep Total Protein Albumin Globulin Urine Color Urine Appearance Urine pH Ur Specific [place] Urine Protein Urine Glucose (UA) Urine Ketones Urine Blood Urine Nitrate Urine Bilirubin Urine Urobilinogen Ur Leukocyte Esterase 12/24/20 12/24/20 12/24/20 07:55 12:17 12:56 WBC 13.2 H RBC 5.76 H Hgb 15.9 Hct 49.6 MCV 86.1 MCH 27.6 L MCHC 32.1 RDW 17.0 H Plt Count 162 MPV 11.2 H Neut % (Auto) 84.0 Lymph % (Auto) 10.7 [place] % (Auto) 4.3 Eos % (Auto) 0.2 Baso % (Auto) 0.3 Neut # (Auto) 11.06 H Lymph # (Auto) 1.4 [place] # (Auto) 0.6 Eos # (Auto) 0.0 Baso # (Auto) 0.0 Nucleated RBC % (auto) 0 Nucleated RBCs # 0.0 PT INR APTT Specimen Type Sample Site Cort[place] Test VBG pH VBG pCO2 VBG pO2 VBG HCO3 VBG Base Excess VBG Hematocrit [employer] Carpenter ID Sodium 132 L 137 Potassium 5.7 H 4.8 Chloride 103 107 Carbon Dioxide 19 L 19 L Anion Gap 15.7 15.8 BUN 16 15 Creatinine 1.0 1.0 GFR Calculation Not Reportable Not Reportable Glucose 106 97 Calculated Osmolality 276 L 285 Calcium 8.6 8.3 L Magnesium 1.9 Total Bilirubin 0.4 AST 119 H ALT 25 Alkaline Phosphatase 122 Creatine Kinase Troponin T Baseline Troponin T 120 Minute Delta Troponin T Troponin T Hi Sens 6Hr Troponin T Hi Sens 6Hr Delta NT-Pro-B Natriuret Pep Total Protein 6.9 Albumin 3.3 L Globulin 3.6 Urine Color Urine Appearance Urine pH Ur Specific [place] Urine Protein Urine Glucose (UA) Urine Ketones Urine Blood Urine Nitrate Urine Bilirubin Urine Urobilinogen Ur Leukocyte Esterase 12/24/20 12/25/20 12/25/20 17:10 03:30 03:30 WBC 14.0 H RBC 5.64 H Hgb 15.5 Hct 47.4 MCV 84.0 MCH 27.5 L MCHC 32.7 RDW 16.5 H Plt Count 148 MPV 11.7 H Neut % (Auto) 72.0 Lymph % (Auto) 16.9 [place] % (Auto) 8.0 Eos % (Auto) 1.9 Baso % (Auto) 0.6 Neut # (Auto) 10.10 H Lymph # (Auto) 2.4 [place] # (Auto) 1.1 H Eos # (Auto) 0.3 Baso # (Auto) 0.1 Nucleated RBC % (auto) 0 Nucleated RBCs # 0.0 PT INR APTT Specimen Type Venous Sample Site Vein [place] Test N/a VBG pH 7.48 H VBG pCO2 29.8 L VBG pO2 106.0 H VBG HCO3 22.0 L VBG Base Excess -0.3 VBG Hematocrit 49.5 [place] Sash [employer] Carpenter ID Bd Sodium 138 Potassium 4.9 Chloride 104 Carbon Dioxide 22 Anion Gap 16.9 BUN 18 Creatinine 1.3 H GFR Calculation Not Reportable Glucose 98 Calculated Osmolality 288 Calcium 8.3 L Magnesium Total Bilirubin 0.4 AST 77 H ALT 23 Alkaline Phosphatase 111 Creatine Kinase Troponin T Baseline Troponin T 120 Minute Delta Troponin T Troponin T Hi Sens 6Hr Troponin T Hi Sens 6Hr Delta NT-Pro-B Natriuret Pep Total Protein 6.3 L Albumin 3.3 L Globulin 3.0 Urine Color Urine Appearance Urine pH Ur Specific [place] Urine Protein Urine Glucose (UA) Urine Ketones Urine Blood Urine Nitrate Urine Bilirubin Urine Urobilinogen Ur Leukocyte Esterase Cardiac Studies: Echocardiogram 12/03/20
[2020-12-25] MEDS: carvedilol 6.25 mg Tablet PO ×2 (08:36→17:26)
[2020-12-25] MEDS: atorvastatin 40 mg Tablet PO (08:36)
[2020-12-25] MEDS: pantoprazole DR 40 mg Tablet PO (08:36)
--- NOTE | 2020-12-25 10:44 | PC.CHAP ---
Pastoral Care Encounter/Spiritual Assessment Type of Contact [] Declined pocket and pulley machine operator visit [] Patient/Family/Request visit [] Outpatient visit [] Follow-up visit [] Physician referral [] Code/Alert [x] Routine visit [] Staff referral [] Actively dying [x] Patient sleeping [] Family support [] [] Out of room [] Palliative care [] [] Receiving care in room [] Pre-surgical visit [] Trauma [] Long length of stay [] ICU visit [] Other: Relational/Emotional Strength [] Patient feels connected with others/family/visitors/staff [] Distress [] Loneliness/isolation [] Abandonment Spirituality of Patient [] Person of Vi [] Attends Jain of their Vi [] Believes in Prayer [] Reads Bible or Jew materials [] There are Spiritual issues to be addressed Shaping Machine Tender Interventions [] Prayer [] Active listening [] Non-anxious presence [] Spiritual/emotional support [] Crisis/trauma care [] Spiritual counseling [] Bereavement support [] Provided bereavement packet [] Provided Bible/devotional materials [] Provided toy/stuffed animal, coloring book to patient or family member [] Provided Communion [] Anointing/[place] [] Salvation [] Completed spiritual assessment [] Other: Impact on Illness or Injury [] Angry [] Fearful [] Anxious [] Often cries [] Exhaustion [] Unable to work [] Unable to attend christianity [] Unable to walk/stand [] Unable to read [] Unable to drive [] Unable to eat/drink [] Unable to sleep [] Unable to be with family [] Patient intubated [] Other: Summary Time spent with patient
[2020-12-25] MEDS: chlorhexidine gluconate 4% Btl 118 mL 1 APPLIC TOPICAL (10:51)
[2020-12-25] MEDS: lidocaine 1% INJ 20 mL SUBCUT (12:31)
[2020-12-25] MEDS: ceFAZolin 1,000 mg SDV 1000 MG IRRIGATION (12:35)
[2020-12-25] MEDS: ondansetron 2 mg/ML SDV 2 mL 4 MG IVP (13:53)
--- NOTE | 2020-12-25 13:58 | PM.OP ---
Operative Report Date of procedure: December 25, 2020 Pre-op Diagnosis: Ventricular tachycardia/ NSTEMI Post-op diagnosis: same Procedure Done: Up Grade of previously placed dual-chamber pacemaker with AICD and AICD lead implantation Implants: Medtronic AICD generator and lead Specimens removed/disposition: Dual chamber Medtronic pacemaker removed and delivered to [employer] leather goods sales representative Pathology: none sent Surgeon: Kenton Casanova Anesthesia: MAC and Local Complications: None Condition: stable Disposition: ICU Brief History: Mr. Broussard is a 75-year-old gentleman with severe ischemic cardiomyopathy who has had a previously placed dual-chamber pacemaker. He presented this hospitalization with ventricular tachycardia and was cardioverted successfully in the field by EMT. He is determined by most recent echocardiogram to have an ejection fraction of approximately 20% and due to his malignant arrhythmias, it has been recommended by Dr. Browning from cardiology that his dual-chamber pacemaker system be upgraded to an AICD. Rationale for this was carefully and frankly discussed with Mr. Broussard and his . All questions answered. They wish to proceed. Appropriate consents have been reviewed and signed. Procedure: Mr. Broussard was taken to the operating room theater and carefully position on the OR table. He underwent IV conscious sedation anesthesia monitoring. His entire upper chest was sterilely prepped and draped. 1% lidocaine was infiltrated through the previous incision at the insertion site of the dual-chamber pacemaker. Dissection was carried out sharply with Metzenbaum scissors and cautery down to the pseudocapsule which was opened with a #15 scalpel blade. The pacing generator was then delivered onto the field. Following this, while in Trendelenburg position, utilizing modified Seldinger technique, the left subclavian vein was engaged, freely aspirated of blood, and a guidewire was placed under fluoroscopic guidance into the inferior vena cava. Patient was then returned to the supine position. Overson lidocaine was of the treated in the base of the pacemaker pocket. Cautery was then utilized to enhance this pocket to allow for positioning the larger AICD generator. Once completed, hemostasis was confirmed. Next, under fluoroscopic guidance, dilator and sheath were carefully positioned over the guidewire and guidewire was removed. Next, utilizing a series of curved and straight stylets, the AICD right ventricular lead was placed into position. Distal tip screw was advanced. Interrogation revealed appropriate parameters. Stylette was removed confirming stability of the lead. Lead was then sewn to the floor of the pacemaker pocket. The AICD generator was then brought into the field. The pacemaker pocket was irrigated with antibiotic solution. Hemostasis confirmed. Next, AICD lead was placed into the AICD generator and secured. Following this the atrial lead was removed from the old generator and placed into the AICD generator and secured. There was good capture. On table electronic interrogation revealed appropriate parameters. The RV lead was removed from the original generator the generator was removed from the field. The original pacemaker RV lead was capped and delivered back into the pocket. The entire generator system was then delivered back into the pocket where it fit appropriately. Wound was carefully irrigated. Hemostasis confirmed. Wound was then closed in 2 layers of 2-0 Vicryl suture. Subcu layer of 3-0 Monocryl suture was then placed. Dermabond was placed followed by double dressing including an outer pressure dressing. Left arm was placed into an immobilizer. Mr. Broussard was awakened from anesthesia and then transported back to the ICU. He has equal breath sounds bilaterally at the completion of the procedure. Chest x-ray is pending. RV lead has a sensing of 11.4 mV. Impedance 702 ohms. Threshold 1.1 V.. Medtronic lead is model 6935M and is 62 cm in length. Serial Number: [id number] Medtronic AICD generator is model DD MB1 D4. Serial Number:[id number]
--- NOTE | 2020-12-25 14:07 | XR_ITS ---
WS: [id number] XR chest 1V portable [id number] REASON FOR EXAM: Status post AICD implantation FINDINGS: Compared to previous examination of 12/23/2020, an additional lead has been attached to the battery p ack in the left upper anterior chest. Same transvenous left subclavian course to the right ventricula r apex. No left pneumothorax. No other significant pulmonary abnormality. XR/XR chest 1V portable [id number] IMPRESSION: Additional lead placement as above.
--- NOTE | 2020-12-25 14:14 | PC.NURSE ---
REcieved patient from [facility] staff at 1352. Patient is alert and oriented. Has no complaints at this time. VItals are withinnormal limits. Pacer has capture. Nurse brought patient's to bedside.
--- NOTE | 2020-12-25 15:56 | PM.PN ---
Subjective Subjective: Interval history: Seen and examined this morning. He will be going for ICD placement today. He feels well today and very energetic compared to yesterday. No acute events overnight. Patient would like to know when he can go home. He had 2 bowel movements yesterday. Vitals/I&O/Wt Last Vital Signs Temp 96.9 F L 12/25/20 14:00 Pulse 65 12/25/20 14:00 Resp 19 H 12/25/20 14:00 BP 119/64 12/25/20 14:00 Pulse Ox 93 12/25/20 14:00 12/25/20 12/25/20 12/25/20 06:59 14:59 22:59 Intake Total 250 / 250 Output Total 500 / 1300 Balance -500 / -1060 250 / 250 Weight last 48 hrs Weight 88.451 kg Physical Exam Narrative: EXAM NARRATIVE: General: Alert oriented x3, patient seen laying in bed appearing very comfortable. HEENT: Normocephalic, atraumatic, EOMI, Cardio: Regular rate rhythm, normal S1-S2, no murmurs rubs gallops Respiratory: Good bilateral air entry, no wheezes no rhonchi appreciated GI: Abdomen soft, nontender, bowel sounds + Behavior: Appropriate and cooperative Extremities: no edema, no cyanosis Data : 12/25/20 03:30 12/25/20 03:30 A&P Assessment and plan (1) Ventricular tachycardia: Status: Acute (2) Myocardial infarction: Status: Acute (3) NSTEMI (non-ST elevated myocardial infarction): Status: Acute (4) HTN (hypertension): Status: Acute (5) S/P PTCA (percutaneous transluminal coronary angioplasty): Status: Acute (6) EDMOND (acute kidney injury): Status: Acute Additional A&P Information NSTEMI Hypertension Coronary artery disease status post PCI Acute kidney injury most likely contrast induced ICD placement Patient presented with an episode of V. tach at home which was associated with hypotension. He was cardioverted by EMS. On arrival to ER EKG showed possible new ST-T wave changes. Baseline troponin was 50 and 2-hour delta greater than 400. He was also having discomfort between shoulder blades but denies any anterior chest pain. Case was discussed with cardiology and patient was taken for angiogram. Angiogram showed severe LAD stenosis. He received 2 stents. Referral for cardiothoracic surgery was put in to upgrade pacemaker to ICD. Patient will be going for ICD placement today around noon. Plan to discharge patient in morning. Fluids: Normal saline 40 cc/h. Electrolytes: Replete as needed Nutrition: Cardiac diet Activity: As tolerated Continue home dose of Plavix 75 mg p.o. daily after ICD placement, continue carvedilol 6.25 twice daily, will continue to hold losartan given acute kidney injury. Attestations Medical Necessity Statement*: Will go for ICD placement today. Plan to discharge tomorrow. Time Spent in Patient Care: less than 15 minutes Coding Level of Care Code Acute Visual Specialist for g Fwd Diagnoses Ventricular tachycardia I47.2 Myocardial infarction I21.9 NSTEMI (non-ST elevated myocardial infarction) I21.4 HTN (hypertension) I10 S/P PTCA (percutaneous transluminal coronary angioplasty) Z98.61 EDMOND (acute kidney injury) N17.9
[2020-12-25] MEDS: HYDROcodone-acetaminophen 5-325 mg Tablet 1 TAB PO (20:24)
[2020-12-25] MEDS: sodium chloride 0.9% 1,000 ML 40 ML IV (20:24)
[2020-12-25] MEDS: heparin 5,000 unit/mL INJ 1 mL 5000 UNIT SUBCUT (20:24)
[2020-12-25] MEDS: ceFAZolin 1,000 MG in sodium chloride 0.9% (plus) 50 ML 100 MG IV (20:27)
[2020-12-25] MEDS: temazepam 15 mg Capsule PO (22:59)
[2020-12-26] VITALS (28 sets, daily range): BP systolic 113–167; BP diastolic 60–97; PULSE 60–80; RESP 6–22; TEMP 36–37.6; O2SAT 85–100
[2020-12-26] MEDS: heparin 5,000 unit/mL INJ 1 mL 5000 UNIT SUBCUT (03:06)
[2020-12-26] MEDS: ceFAZolin 1,000 MG in sodium chloride 0.9% (plus) 50 ML 100 MG IV (04:25)
[2020-12-26 04:56] LABS: Basophils % 0.3 %; Eosinophils # 0.3 10^3/uL (0.0-0.8); Eosinophils % 2.6 %; Hematocrit 45.8 % (42.0-52.0); Hemoglobin 14.7 g/dL (11.7-16.6); Mean Corpuscular HGB Conc 32.1 g/dL (30.0-36.0); Mean Corpuscular Hemoglobin 27.5 pg (28.0-34.0); Mean Corpuscular Volume 85.8 fl (80-94); Mean Platelet Volume 10.9 fL (7.4-10.4); Monocytes % 10.5 %; Neutrophils # 6.33 10^3/uL (1.8-7.7); Neutrophils % 65.4 %; Nucleated Red Blood Cells % 0 %; Platelet Count 142 10^3/cmm (130-400); Red Blood Count 5.34 10^6/uL (4.1-5.3); Red Cell Distribution Width 16.4 % (12.1-15.1); White Blood Count 9.7 10^3/uL (4.0-10.0)
[2020-12-26 05:21] LABS: Anion Gap 11.3 (5-19); Blood Urea Nitrogen 16 mg/dL (8-23); Calcium 8.5 mg/dL (8.5-10.5); Carbon Dioxide 25 mmol/L (22-29); Chloride 101 mmol/L (98-107); Glucose 93 mg/dL (65-115); Osmolality Calculated 277 mOsm/kg (285-295); Potassium 4.3 mmol/L (3.5-5.1); Sodium 133 mmol/L (136-145)
--- NOTE | 2020-12-26 06:09 | PC.NURSE ---
Shift Summary: Patient had soreness in left upper chest/shoulder area. Pain medication administered, medication effective. Patient states I am going home today VSS, no signs or symptoms of distress at this time
--- NOTE | 2020-12-26 06:58 | P.PN_ITS ---
Subjective Subjective: Interval history: Postop day #1 status post dual-chamber upgrade to AICD. Up in chair on rounds. He has had breakfast morning. He is eager for discharge. Outer compressive dressing removed. Inner dressing remains dry. No substantial swelling or evidence for fluid collection. Nurses report no concerns. Afebrile. Vitals/I&O/Wt Last Vital Signs Temp 97.9 F 12/26/20 04:00 Pulse 75 12/26/20 06:00 Resp 22 H 12/25/20 23:30 BP 145/86 12/25/20 23:30 Pulse Ox 90 12/25/20 23:30 12/25/20 12/25/20 12/26/20 14:59 22:59 06:59 Intake Total 250 / 250 100 / 350 100 / 450 Output Total 300 / 300 550 / 850 Balance -50 / -50 -450 / -500 100 / -400 Physical Exam Chest: COMMONS NORMALS: normal inspection of the chest OTHER: Inner surgical dressing is clean and dry. No evidence for fluid collection around pacemaker pocket Resp: COMMON NORMALS: normal respiratory effort, No retractions and clear to auscultation bilaterally EFFORT & INSPECTION: Yes symmetric chest movement AUSCULTATION: clear to auscultation bilaterally Cardio: COMMON NORMALS: regular rate, regular rhythm, S1 normal heart sound present and No murmurs present (Cardio) RATE: regular rate RHYTHM: regular rhythm HEART SOUNDS: S1 normal heart sound present Data : 12/26/20 04:34 12/26/20 04:34 A&P Assessment and plan (1) Status post implantation of automatic cardioverter/defibrillator (AICD): POD #1 status post AICD implantation. Okay for discharge from surgical standpoint. I will prescribe to his local pharmacy hydrocodone as well as Levaquin for the next 3 days continued surgical prophylaxis for his AICD implantation. He will be scheduled to follow-up in [facility]pac[facility] clinic in 1 week. Status: Acute Attestations Medical Necessity Statement*: POD #1 status post AICD implantation. 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
[2020-12-26] MEDS: ondansetron 2 mg/ML SDV 2 mL 4 MG IVP (07:09)
--- NOTE | 2020-12-26 08:52 | PM.PN ---
Vitals/I&O/Wt Last Vital Signs Temp 97.9 F 12/26/20 04:00 Pulse 75 12/26/20 06:00 Resp 22 H 12/25/20 23:30 BP 145/86 12/25/20 23:30 Pulse Ox 90 12/25/20 23:30 12/25/20 12/26/20 12/26/20 22:59 06:59 14:59 Intake Total 100 / 350 100 / 450 Output Total 550 / 850 Balance -450 / -500 100 / -400 Data : 12/26/20 04:34 12/26/20 04:34 Coding Level of Care Code Acute Lead Shipper for Chg Abelino
--- NOTE | 2020-12-26 08:53 | PM.PN ---
Subjective Subjective: Interval history: Patient is doing well. He had ICD upgrade which is functioning normally. Denies any chest pain. Vitals/I&O/Wt Last Vital Signs Temp 97.9 F 12/26/20 04:00 Pulse 75 12/26/20 06:00 Resp 22 H 12/25/20 23:30 BP 145/86 12/25/20 23:30 Pulse Ox 90 12/25/20 23:30 12/25/20 12/26/20 12/26/20 22:59 06:59 14:59 Intake Total 100 / 350 100 / 450 Output Total 550 / 850 Balance -450 / -500 100 / -400 Physical Exam Narrative: EXAM NARRATIVE: GENERAL: Patient is alert, awake and oriented x3. [] NECK: No jugular vein distension. [] HEENT: No cyanosis. No icterus. No pallor. [] HEART: Regular S1 and S2. No murmur, rub or gallop. [] LUNGS: Clear to auscultate bilaterally. [] ABDOMEN: Soft, nontender and nondistended. Positive bowel sounds. No guarding, rebound or tenderness. [] CENTRAL NERVOUS SYSTEM: Grossly nonfocal. [] EXTREMITIES: Lower extremities with 1+ edema bilaterally. Pulses palpable in the lower extremities, both dorsalis pedis and posterior tibial. [] Data : 12/26/20 04:34 12/26/20 04:34 A&P Assessment and plan (1) NSTEMI (non-ST elevated myocardial infarction): Status: Resolved (2) Ventricular tachycardia: Status: Resolved (3) CHF (congestive heart failure), NYHA class II: Status: Acute (4) HTN (hypertension): Status: Acute (5) ASHD (arteriosclerotic heart disease): Status: Acute (6) Hyperlipidemia: Status: Acute Patient presented with ventricular tachycardia. His troponins increased significantly. Had NSTEMI Given his EF was below 35% on recent echo and now had VT, he had his pacemaker upgraded to ICD. Functioning normally. Coronary angiogram showed severe proximal and mid LAD stenosis, treated with TEJ x 2. Also had ISR of diagonal artery, treated with balloon angioplasty. Continue aspirin and Plavix for atleast 1 year Continue ICU stay at this time. Keep K > 4 and MG > 2 Thank you for involving us with care of this patient. Patient is stable to be discharged from cardiology standpoint. Please call with questions. Attestations Medical Necessity Statement*: Care expected to cross 2 midnights. 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
[2020-12-26] MEDS: pantoprazole DR 40 mg Tablet PO (09:02)
[2020-12-26] MEDS: carvedilol 6.25 mg Tablet PO (09:14)
[2020-12-26] MEDS: clopidogrel 75 mg Tablet PO (09:14)
[2020-12-26] MEDS: atorvastatin 40 mg Tablet PO (09:14)
--- NOTE | 2020-12-26 09:25 | PC.CHAP ---
Pastoral Care Encounter/Spiritual Assessment Type of Contact [] Declined casino accountant visit [] Patient/Family/Request visit [] Outpatient visit [] Follow-up visit [] Physician referral [] Code/Alert [x] Routine visit [] Staff referral [] Actively dying [] Patient sleeping [] Family support [] [] Out of room [] Palliative care [] [] Receiving care in room [] Pre-surgical visit [] Trauma [] Long length of stay [x] ICU visit [] Other: Relational/Emotional Strength [] Patient feels connected with others/family/visitors/staff [] Distress [] Loneliness/isolation [] Abandonment Spirituality of Patient [] Person of Vi [] Attends Catholic of their Vi [] Believes in Prayer [] Reads Bible or Adventist materials [] There are Spiritual issues to be addressed Chalk Tester Interventions [x] Prayer [x] Active listening [x] Non-anxious presence [x] Spiritual/emotional support [] Crisis/trauma care [] Spiritual counseling [] Bereavement support [] Provided bereavement packet [] Provided Bible/devotional materials [] Provided toy/stuffed animal, coloring book to patient or family member [] Provided Communion [] Anointing/[place] [] Salvation [x] Completed spiritual assessment [] Other: Impact on Illness or Injury [] Angry [] Fearful [] Anxious [] Often cries [] Exhaustion [] Unable to work [] Unable to attend gnosticism [] Unable to walk/stand [] Unable to read [] Unable to drive [] Unable to eat/drink [] Unable to sleep [] Unable to be with family [] Patient intubated [] Other: Summary likes to be called Mac... looking forward to going home... feeling better Time spent with patient 5 min
[2020-12-26] MEDS: ALPRAZolam 0.5 mg Tablet 0.25 MG PO (09:32)
--- NOTE | 2020-12-26 11:06 | P.DS_ITS ---
Discharge Providers Date of Admission: 12/24/20 02:23 Date of Discharge: December 26, 2020 Attending Provider at Admission: Ivana Santos MD Attending Provider at Discharge: Yesenia Varghese MD Primary Care Provider: Fermin Carlisle MD Diagnoses at Discharge Discharge Diagnosis (1) Status post implantation of automatic cardioverter/defibrillator (AICD): Status: Acute Reason for Visit Reason for Visit: v tach Hospital Course Hospital Course Obdulio Broussard is a 75 year old male with a past medical history of coronary artery disease status post PCI in 2019, last known ejection fraction of 20 to 25% from November 2020, presented to the emergency room today after developing ventricular tachycardia. Patient states he was in his usual state of health until 9:30 PM. He took a shower, came out and was watching TV when suddenly he started to feel just not right , , Describes the symptoms as lightheadedness dizziness, awake chest discomfort, he put on his pulse oximeter which showed his heart rate was above 200. His called EMS, upon arrival he was found to be in V. tach, underwent cardioversion in the field. Patient was mentating well during this above event. Thereafter brought into the emergency room. At this present time of evaluation he is complaining of some discomfort between his shoulder blades, however states he has had this since cardioversion. Noted to have a new oxygen requirement of 3 to 4 L/min. Saturating 89% on room air. Lamont thapa has had 3 to 4 weeks of dry cough, states that he often has allergic manifestations during the fall and his needs steroids occasionally. No history of fever. Vaccinated with 2 doses Moderna mRNA vaccine series, completed June 2020. As an outpatient he is on Plavix, not on aspirin given history of nonerosive gastritis. 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 He is also being treated for H. pylori, recently completed antibiotics. Hospital Course: Patient presented with ventricular tachycardia and was cardioverted by EMS in route. Delta troponin was greater than 400. He kept complaining of vague discomfort between shoulder blades and he was taken for PCI on arrival. Angiogram showed severe LAD stenosis. He received 2 stents. Cardiothoracic surgery was consulted to upgrade pacemaker to ICD. ICD was placed he was sent home with 3 days of antibiotics. He was asked to follow-up with cardiology as an outpatient. Patient discharged in stable condition. Physical Exam Narrative: EXAM NARRATIVE: General: Alert oriented x3, patient seen laying in bed appearing very comfortable. HEENT: Normocephalic, atraumatic, EOMI, Cardio: Regular rate rhythm, normal S1-S2, no murmurs rubs gallops Respiratory: Good bilateral air entry, no wheezes no rhonchi appreciated Surgical site appears clean. 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 Routin e Exams 12/24/20 05:25 Taken Platelet Count Q2 D Lab 12/28/20 04:00 Ordered Venous Blood Gas Routine Lab 12/24/20 17:10 Results Labs from last 24 hours 12/26/20 12/26/20 04:34 04:34 WBC 9.7 RBC 5.34 H Hgb 14.7 Hct 45.8 MCV 85.8 MCH 27.5 L MCHC 32.1 RDW 16.4 H Plt Count 142 MPV 10.9 H Neut % (Auto) 65.4 Lymph % (Auto) 21.0 Stanton % (Auto) 10.5 Eos % (Auto) 2.6 Baso % (Auto) 0.3 Neut # (Auto) 6.33 Lymph # (Auto) 2.0 Stanton # (Auto) 1.0 H Eos # (Auto) 0.3 Baso # (Auto) 0.0 Nucleated RBC % (a uto) 0 Nucleated RBCs # 0.0 Sodium 133 L Potassium 4.3 Chloride 101 Carbon Dioxide 25 Anion Gap 11.3 BUN 16 Creatinine 1.1 GFR Calculation Not Reportable Glucose 93 Calculated Osmolal ity 277 L Calcium 8.5 Vitals: Last Vital Signs Temp 96.8 F L 12/26/20 07:30 Pulse 72 12/26/20 09:30 Resp 13 12/26/20 09:30 BP 154/97 12/26/20 09:30 Pulse Ox 95 12/26/20 09:30 Discharge Plan Discharge Patient Disposition: Home Condition: Fair Prescriptions: New hydrocodone-acetaminophen 5-325 mg tablet 1 tab PO Q6H PRN (Reason: pain) 4 Days Qty: 16 RF: 0 levofloxacin 500 mg tablet 500 mg PO DAILY 3 Days Qty: 3 RF: 0 atorvastatin 40 mg Tablet 80 mg PO DAILY 30 Days Qty: 30 RF: 1 clopidogrel 75 mg Tablet 75 mg PO DAILY 30 Days Qty: 30 RF: 1 aspirin 81 mg Tablet,Delayed Release (Dr/Ec) 81 mg PO DAILY 30 Days Qty: 30 RF: 2 Continued olmesartan [Benicar] 20 mg tablet 10 mg PO DAILY RF: 0 latanoprost 0.005 % drops 1 drop ophthalmic (eye) BEDTIME RF: 0 clopidogrel 75 mg tablet 75 mg PO DAILY RF: 0 nitroglycerin [Nitrostat] 0.4 mg tablet, sublingual 0.4 mg SUBLINGUAL Q5M PRN (Reason: Chest Pain) RF: 0 carvedilol 3.125 mg tablet 6.25 mg PO BID Qty: 60 RF: 4 isosorbide mononitrate 30 mg Tablet Extended Release 24 Hr See Rx Instructions .ROUTE .COMPLEX RF: 0 Prevacid 24Hr 15 mg Capsule,Delayed Release(Dr/Ec) 15 mg PO DAILY RF: 0 Lasix 20 mg Tablet 10 mg PO DAILY RF: 0 Changed Xanax 0.5 mg tablet 0.25 mg PO TID PRN (Reason: Anxiety) Qty: 0 RF: 0 Discontinued rosuvastatin 10 mg tablet 10 mg PO DAILY RF: 0 Discharge Orders: Discharge Order (Routine); Ordered 12/26/20 Ordered By: Yesenia Varghese Referrals: [facility] [Provider Group] - 1 week (follow up with Linnea Singh at [facility] for the following date of thursday2020 at 1:15 pm ) Juanjo Esparza M.D [Physician] - (LINNEA SINGH TO DO SCHEDULING WITH FOLLOW UP FOR AND PACEMAKER/DEFIBRILLATOR ,WOUND CHECK ,WILL SCHEDULE FOR THESE FOLLOW UP APPOINTMENTS ) Discharge Diet: Cardiac, Low Salt and Low Cholesterol Discharge Activity: Increase activity as tolerated Patient Instructions: Hydrocodone/Acetaminophen (By mouth) (Vicodin, [place], Lortab), Aspirin (By mouth), Atorvastatin (By mouth) (Lipitor), Levofloxacin (By mouth), Clopidogrel (By mouth) (Plavix), Heart Attack (DC), Coronary Angioplasty (DC), Heart Healthy Diet (DC), Coronary Intravascular Stent P lacement (DC), Implantable Cardioverter Defibrillator (DC), Opioid Safety, Post Heart Attack Stoplight, Post Pacemaker - Casanova Activity Restrictions/Additional Instructions: May remove bandage in 2 days May begin daily showers in 2 days May recover incision after showers, after dry completely, to prevent irritation from clothing. No swimming or tub baths x 2 weeks No ointments on incision Report drainage, redness, heat, increased pain, or swelling to clinic Discharge Attestations Time Spent in Discharge Care*: less than 30 min Specific Discharge Activities: educating patient and documenting/other paperwork Quality Metrics Clinical Quality Measures During this hospital stay, did patient experience: AMI Clinical Trial Participant: No Contraindication to aspirin (AMI): Aspirin given Contraindication to statin: Statin prescribed Coding Level of Care Code Acute Chg FW DC note Diagnoses Status post implantation of automatic cardioverter/defibrillator (AICD) Z95.810
--- NOTE | 2020-12-26 13:25 | PC.NURSE ---
SHift summary: uneventful shift. paient rested in bed throughout the day pending physician rounding and likely discharge orders.
--- NOTE | 2020-12-26 13:26 | PC.NURSE ---
Patient discharged to home. Discharge education provide don activity and medications. Prescriptions sent to [facility] drug pharmacy. Followup appointments discussed. Patient discharged in wheelchair with and son.
--- NOTE | 2020-12-27 14:55 | PC.SOCIAL ---
discharge follow up call made, spoke with patient. patient denies chest pain or sob. patient reports his incision is free from redness and swelling. patient plans to shower this afternoon, instructed to cover if needed for drainage or clothes irritation. pt verbalized understanding. patient is taking new medications as prescribed. discussed the change in dosage on xanax and the discontinue of rosuvastatin. patient verbalized understanding. patient given follow up appointment date and time to see peg carroll and her office number. no concerns voiced.
== END 2020-12-26 13:27 | disposition home or self-care (01) | DRG 223 ==
LOC: ER 12-24 02:16 → ICU 12-24 02:25
PROVIDERS: Internal Medicine; Thoracic Surgery (Cardiothoracic Vascular Surgery); Admitting Provider Student in an Organized Health Care Education/Training Program; Emergency Provider Emergency Medicine; PCP Family Medicine; Visit Provider Internal Medicine
PROC: B2111ZZ Fluoroscopy of Multiple Coronary Arteries using Low Osmolar Contrast (ICD-10-PCS; principal; 2020-12-24 06:00)
PROC: B2111ZZ Fluoroscopy of Multiple Coronary Arteries using Low Osmolar Contrast (ICD-10-PCS; 2020-12-24 06:00)
PROC: 0JH608Z Insertion of Defibrillator Generator into Chest Subcutaneous Tissue and Fascia, Open Approach (ICD-10-PCS; CPT 33249; principal; 2020-12-25 12:00)
DX: I21.4 Non-ST elevation (NSTEMI) myocardial infarction (principal); I47.2 Ventricular tachycardia; I50.20 Unspecified systolic (congestive) heart failure; I25.10 Atherosclerotic heart disease of native coronary artery without angina pectoris; Z95.5 Presence of coronary angioplasty implant and graft; Z95.0 Presence of cardiac pacemaker; I25.5 Ischemic cardiomyopathy; I11.0 Hypertensive heart disease with heart failure; K21.9 Gastro-esophageal reflux disease without esophagitis; E78.5 Hyperlipidemia, unspecified; H40.9 Unspecified glaucoma; K57.90 Diverticulosis of intestine, part unspecified, without perforation or abscess without bleeding; Z79.02 Long term (current) use of antithrombotics/antiplatelets; I95.9 Hypotension, unspecified
CPT/HCPCS: 36415; 71045; 76000; 80048; 80053; 81003; 82550; 82803; 83735; 83880; 84484; 85025; 85347; 85610; 85730; 92920; 93005; 93454; 96372; 99285; C1721; C1725; C1760; C1769; C1777; C1874; C1887; C1894; C9600; J0690; J1644; J2250; J2370; J2405; J2704; J3010; J3370; J3490; J7030; J7050; Q0163; Q9967

== ENCOUNTER → 2021-01-02 14:09 | Outpatient (BNVA) | payer MEDICARE, OTHER, SELFPAY | PROVIDERS: PCP Family Medicine; Visit Provider Nurse Practitioner Family | DX: I25.10 Atherosclerotic heart disease of native coronary artery without angina pectoris (principal); Z95.810 Presence of automatic (implantable) cardiac defibrillator | CPT/HCPCS: 80048 ==

== ENCOUNTER → 2021-08-13 13:09 | Outpatient (BNVA) | payer MEDICARE, OTHER, SELFPAY | PROVIDERS: PCP Family Medicine; Visit Provider Internal Medicine | DX: I25.10 Atherosclerotic heart disease of native coronary artery without angina pectoris (principal); R42 Dizziness and giddiness; I11.0 Hypertensive heart disease with heart failure; I50.9 Heart failure, unspecified; I65.29 Occlusion and stenosis of unspecified carotid artery; Z98.61 Coronary angioplasty status; I42.9 Cardiomyopathy, unspecified; Z95.810 Presence of automatic (implantable) cardiac defibrillator; Z87.891 Personal history of nicotine dependence | CPT/HCPCS: 80048; 83880; 99214 ==

== ENCOUNTER → 2021-10-16 08:06 | Outpatient (BNVA) | payer MEDICARE, OTHER, SELFPAY | PROVIDERS: PCP Family Medicine; Visit Provider Family Medicine | DX: I10 Essential (primary) hypertension (principal); E78.5 Hyperlipidemia, unspecified; I42.9 Cardiomyopathy, unspecified; J32.9 Chronic sinusitis, unspecified; R51.9 Headache, unspecified; K21.9 Gastro-esophageal reflux disease without esophagitis; I50.9 Heart failure, unspecified | CPT/HCPCS: 80053; 80061; 85025 ==

== ENCOUNTER → 2021-10-29 13:58 | Outpatient (BNVA) | payer MEDICARE, OTHER, SELFPAY | PROVIDERS: PCP Family Medicine; Visit Provider Internal Medicine | DX: I25.10 Atherosclerotic heart disease of native coronary artery without angina pectoris (principal); R42 Dizziness and giddiness; I11.0 Hypertensive heart disease with heart failure; I50.9 Heart failure, unspecified; I65.29 Occlusion and stenosis of unspecified carotid artery; E78.5 Hyperlipidemia, unspecified; Z98.61 Coronary angioplasty status; I42.9 Cardiomyopathy, unspecified; Z95.810 Presence of automatic (implantable) cardiac defibrillator; Z87.891 Personal history of nicotine dependence | CPT/HCPCS: 93283; 99214 ==

== ENCOUNTER 2021-11-22 12:45 | Outpatient (CLI) | payer MEDICARE, OTHER, SELFPAY ==
--- NOTE | 2021-11-22 13:00 | CT_ITS ---
WS: [id number] CT SINUSES TECHNIQUE: Noncontrast CT of the paranasal sinuses with coronal and sagittal reformatted images. CLINICAL INFORMATION: Left sinus and orbit pain COMPARISON: None. DLP: 495.[address] scans at [facility] use at least one of these dose optimization techniques: automated e xposure control; mA and/or kV adjustment per patient size (includes targeted exams where dose is matc hed to clinical indication); or iterative reconstruction. FINDINGS: Mild RIGHT to LEFT nasal septal deviation measuring 2 to 3 mm. Polypoid mucosal thickening in the par anasal sinuses. Retention cysts or polyps in the maxillary sinuses bilaterally. Polypoid lesion along the LEFT middle turbinate measuring 1.6 x 0.9 CM. Retention cyst or polyps in the maxillary sinuses largest measuring 1.9 x 1.5 CM. Mild narrowing of the ostiomeatal units bilaterally with mild mucosal thickening. Mild mucosal thicke vinnie in the frontal sinuses RIGHT greater than LEFT. Mucosal thickening along the frontal ethmoidal r ecesses and sphenoid ostia. Sphenoid sinuses are well aerated. Mastoid air cells well aerated. Normal posterior nasopharynx. CT/CT sinus wo con* [id number] IMPRESSION: 1. Mild nasal septal deviation RIGHT to LEFT measuring 2-3 mm. 2. Mild mucosal thickening paranasal sinuses more prominent in the frontal sin uses,ethmoid air cells and maxillary sinuses. 3. Mastoid air cells well aerated. 4. Ovoid polypoid lesion along the LEFT middle turbinate measuring 1.6 x 0.9 C M. 5. Retention cyst or polyps in the maxillary sinuses the largest in the RIGHT measuring 1.8 x 1.5 CM.
== END 2021-11-22 12:46 | disposition home or self-care (01) ==
LOC: RAD 12:46
PROVIDERS: PCP Family Medicine; Visit Provider Family Medicine
DX: H57.10 Ocular pain, unspecified eye (principal); J32.9 Chronic sinusitis, unspecified; J34.2 Deviated nasal septum
CPT/HCPCS: 70486

== ENCOUNTER → 2021-12-17 08:58 | Outpatient (BNVA) | payer MEDICARE, OTHER, SELFPAY | PROVIDERS: PCP Family Medicine; Visit Provider Specialist | DX: J30.89 Other allergic rhinitis (principal) | CPT/HCPCS: 86003 ==

== ENCOUNTER → 2022-01-06 10:04 | Outpatient (BNVA) | payer MEDICARE, OTHER, SELFPAY | PROVIDERS: PCP Family Medicine; Visit Provider Nurse Practitioner Family | DX: I11.0 Hypertensive heart disease with heart failure (principal); I50.42 Chronic combined systolic (congestive) and diastolic (congestive) heart failure; Z95.810 Presence of automatic (implantable) cardiac defibrillator; Z87.891 Personal history of nicotine dependence | CPT/HCPCS: 93283; 99213; 99214 ==

== ENCOUNTER 2022-02-21 13:21 | Outpatient (CLI) | payer MEDICARE, OTHER, SELFPAY ==
[2022-02-21 14:13] LABS: Blood Urea Nitrogen 15 mg/dL (8-23); Calcium 9.2 mg/dL (8.5-10.5); Carbon Dioxide 26 mmol/L (22-29); Chloride 104 mmol/L (98-107); Glucose 104 mg/dL (65-115); NT Pro B Type Natriuretic Pept 338 pg/mL (0-450); Osmolality Calculated 287 mOsm/kg (285-295); Sodium 138 mmol/L (136-145)
== END 2022-02-21 13:22 | disposition home or self-care (01) ==
LOC: LAB 13:26
PROVIDERS: PCP Family Medicine; Visit Provider Nurse Practitioner Family
DX: I50.9 Heart failure, unspecified (principal)
CPT/HCPCS: 36415; 80048; 83880

== ENCOUNTER → 2022-03-21 09:42 | Outpatient (BNVA) | payer MEDICARE, OTHER, SELFPAY | PROVIDERS: PCP Family Medicine; Visit Provider Internal Medicine | DX: Z45.02 Encounter for adjustment and management of automatic implantable cardiac defibrillator (principal) | CPT/HCPCS: 93283 ==

== ENCOUNTER 2022-03-24 15:19 | Outpatient (CLI) | payer MEDICARE, OTHER, SELFPAY ==
--- NOTE | 2022-03-24 15:30 | XRR_ITS ---
PROCEDURE INFORMATION: Exam: XR Chest Exam date and time: 03/24/2022 3:36 PM Age: 77 years old Clinical indication: Cough and wheezing; Prior surgery; Surgery type: Defibrillator; Additional info: Persistent cough TECHNIQUE: Imaging protocol: Radiologic exam of the chest. Views: 2 views. COMPARISON: CR XR chest 1V portable [id number] 12/25/2020 2:09 PM FINDINGS: Lungs: Unremarkable. No consolidation. Pleural spaces: Unremarkable. No pleural effusion. No pneumothorax. Heart/Mediastinum: Cardiac silhouette is not significantly enlarged. There is a dual electrode pacemaker and ICD monitor whose tips project within the right atrium and right ventricle unchanged from prior study. Bones/joints: Unremarkable for age. XR/XR chest 2V* [id number] IMPRESSION: Negative chest
== END 2022-03-24 15:20 | disposition home or self-care (01) ==
LOC: RAD 15:23
PROVIDERS: PCP Family Medicine; Visit Provider Family Medicine
DX: R05.9 Cough, unspecified (principal)
CPT/HCPCS: 71046

== ENCOUNTER 2022-04-29 07:31 | Outpatient (CLI) | payer MEDICARE, OTHER, SELFPAY ==
--- NOTE | 2022-04-29 08:15 | CT_ITS ---
WS: [id number] LDCT LUNG CANCER SCREENING TECHNIQUE: Noncontrast CT of the chest with coronal and sagittal reformatted images. CLINICAL INFORMATION: Cough, 30+ year tobacco abuse COMPARISON: None. DLP: 76.49 mGy.cm DIvol: Mean CTDIvol: 1.60 (mGy) All CT scans at [facility] use at least one of these dose optimization techniques: automat ed exposure control; mA and/or kV adjustment per patient size (includes targeted exams where dose is matched to clinical indication); or iterative reconstruction. FINDINGS: A few tiny noncalcified pulmonary nodules measuring 2-3 mm. No suspicious pulmonary parenchymal opaci ties. Tree-in-bud opacities in RIGHT middle lobe and RIGHT lower lobe likely inflammatory. Aortic barry cification. No mediastinal or hilar lymphadenopathy. Coronary calcification. Cholelithiasis. Adrenal glands are normal. Noncontrast pancreas is normal. Normal GE junction. Tiny n oncalcified nodule along the RIGHT fissure. Adrenal glands are normal. Hypertrophic changes thoracic spine ankylosis. CT/CT lung screening [id number] IMPRESSION: LUNG-RADS: 2-Benign Appearance or Behavior FOLLOW UP: 12 Month: Continue annual screening with LDCT
== END 2022-04-29 07:32 | disposition home or self-care (01) ==
LOC: RAD 07:31
PROVIDERS: PCP Family Medicine; Visit Provider Family Medicine
DX: Z12.2 Encounter for screening for malignant neoplasm of respiratory organs (principal); Z87.891 Personal history of nicotine dependence; R05.9 Cough, unspecified
CPT/HCPCS: 71271

== ENCOUNTER → 2022-05-06 14:51 | Outpatient (BNVA) | payer MEDICARE, OTHER, SELFPAY | PROVIDERS: PCP Family Medicine; Visit Provider Internal Medicine | DX: R05.9 Cough, unspecified (principal); I65.29 Occlusion and stenosis of unspecified carotid artery; I25.10 Atherosclerotic heart disease of native coronary artery without angina pectoris; E78.5 Hyperlipidemia, unspecified; I42.9 Cardiomyopathy, unspecified; I11.0 Hypertensive heart disease with heart failure; I50.9 Heart failure, unspecified; Z87.891 Personal history of nicotine dependence | CPT/HCPCS: 99214 ==

== ENCOUNTER → 2022-07-22 09:11 | Outpatient (BNVA) | payer MEDICARE, OTHER, SELFPAY | PROVIDERS: PCP Family Medicine; Visit Provider Family Medicine | DX: R35.1 Nocturia (principal); R30.0 Dysuria; I10 Essential (primary) hypertension | CPT/HCPCS: 81000; 84153 ==

== ENCOUNTER → 2022-10-15 13:48 | Outpatient (BNVA) | payer MEDICARE, OTHER, SELFPAY | PROVIDERS: PCP Family Medicine; Visit Provider Nurse Practitioner Family | DX: I47.29 Other ventricular tachycardia (principal); I11.0 Hypertensive heart disease with heart failure; I50.9 Heart failure, unspecified; I25.10 Atherosclerotic heart disease of native coronary artery without angina pectoris; Z87.891 Personal history of nicotine dependence | CPT/HCPCS: 80048; 83880; 85025; 99214 ==

== ENCOUNTER 2022-10-31 14:12 | Outpatient (CLI) | payer MEDICARE, OTHER, SELFPAY ==
[2022-10-31] MEDS: iohexol 350 mg/mL 500 mL Btl (per mL) IV (14:28)
--- NOTE | 2022-10-31 14:30 | CT_ITS ---
WS: [id number] CT CHEST TECHNIQUE: Contrast enhanced CT of the chest with coronal and sagittal reformatted images. CLINICAL INFORMATION: wheezing/ cough - abnormal CT 6 months ago. COMPARISON: CT lung screening 04/29/2022 DLP: 408.[address] scans at [facility] use at least one of these dose optimization techniques: automated e xposure control; mA and/or kV adjustment per patient size (includes targeted exams where dose is matc hed to clinical indication); or iterative reconstruction. FINDINGS: Cholelithiasis. Gallbladder is contracted. Normal GE junction. Adrenal glands are normal. Calcified u pper abdominal aorta. Hypertrophic changes thoracic spine. Normal caliber thoracic aorta. Aortic calc ification. Coronary calcification. Cardiac pacer. No mediastinal or hilar lymphadenopathy. No axillar y lymphadenopathy. Tiny noncalcified nodule RIGHT upper lobe measuring 3 mm is unchanged. 1 or 2 additional tiny subpleu ral nodules unchanged. No new suspicious pulmonary parenchymal opacities. LEFT common carotid arises from the innominate. IMPRESSION: 1. Tiny noncalcified nodule RIGHT upper lobe measuring 3 mm is unchanged. 2. 1 or 2 additional tiny subpleural nodules unchanged. 3. No new suspicious pulmonary parenchymal opacities.
== END 2022-10-31 14:13 | disposition home or self-care (01) ==
PROVIDERS: PCP Family Medicine; Visit Provider Family Medicine
DX: R05.9 Cough, unspecified (principal); R06.2 Wheezing; R91.1 Solitary pulmonary nodule
CPT/HCPCS: 71260; Q9967

== ENCOUNTER → 2022-11-05 14:47 | Outpatient (BNVA) | payer MEDICARE, OTHER, SELFPAY | PROVIDERS: PCP Family Medicine; Visit Provider Internal Medicine | DX: I11.0 Hypertensive heart disease with heart failure (principal); I50.9 Heart failure, unspecified; I48.91 Unspecified atrial fibrillation; R05.9 Cough, unspecified; I65.29 Occlusion and stenosis of unspecified carotid artery; I25.10 Atherosclerotic heart disease of native coronary artery without angina pectoris; E78.5 Hyperlipidemia, unspecified; I42.9 Cardiomyopathy, unspecified; Z87.891 Personal history of nicotine dependence; Z79.01 Long term (current) use of anticoagulants | CPT/HCPCS: 99214 ==

== ENCOUNTER 2022-11-21 11:30 | Outpatient (CLI) | payer MEDICARE, OTHER, SELFPAY ==
--- NOTE | 2022-11-21 11:45 | USCV_ITS ---
Obdulio Broussard Age: 77 Gender: M : 1945 Exam Date: 11/21/2022 11:56 Ordering Phys: Juanjo Esparza M.D ([email or web address]) Technologist: MINI Exam Location: [facility] [place] Indication: CHEST PAIN AND SOB BP: 125 / 69 HR: 80 Rhythm: Sinus Technical Quality: Adequate MEASUREMENTS (Male / Female) Normal Values 2D ECHO LV Diastolic Diameter PLAX 5.9 cm 4.2 - 5.9 / 3.9 - 5.3 cm LV Systolic Diameter PLAX 5.5 cm LV Chamber Size 4.8 cm IVS Diastolic Thickness 1.3 cm 0.6 - 1.0 / 0.6 - 0.9 cm IVS Systolic Thickness 1.3 cm LVPW Diastolic Thickness 0.7 cm 0.6 - 1.0 / 0.6 - 0.9 cm LVPW Systolic Thickness 0.8 cm LVOT Diameter 2.0 cm LV Ejection Fraction 2D Teich 14.3 % LV Ejection Fraction MOD 2C -0.7 % LV Ejection Fraction 2C AL -2.9 % LA Diameter 3.3 cm LA Width 2.9 cm LA Height 4.5 cm RA Width 4.6 cm RA Height 4.2 cm Aorta at Sinotubular Diameter 3.2 cm IVC Diameter 2.1 cm M-MODE Aortic Annulus Diameter 2.9 cm LA Ao Ratio MM 1.5 MV E Point Septal Separation 1.4 cm DOPPLER AV Peak Velocity 114.3 cm/s LVOT Peak Velocity 43.8 cm/s AV Area Cont Eq vti 1.2 cm squared AV Area Cont Eq pk 1.2 cm squared MV Area PHT 3.7 cm squared Mitral E to A Ratio 0.9 MV E' Velocity 45.0 cm/s Mitral E to MV E' Ratio 21.3 Mitral E to LV E' Lateral Ratio 17.7 Mitral E to LV E' Septal Ratio 26.6 TR Peak Velocity 218.9 cm/s TR Peak Gradient 19.2 mmHg TR Mean Velocity 176.4 cm/s TR Mean Gradient 13.5 mmHg TR Velocity Time Integral 87.5 cm TV Peak E Velocity 95.0 cm/s Right Atrial Pressure 3.0 mmHg Pulmonary Artery Systolic Pressu 22.2 mmHg RV Acceleration Time 0.1 s RV Ejection Time 0.3 s RV AcT/ET 0.4 FINDINGS Left Ventricle Left ventricle is dilated. LV systolic function is severely reduced with EF of 10 to 15%. Severe global hypokinesis seen. Grade 1 diastolic dysfunction Right Ventricle Normal in size and function Right Atrium Pacemaker wire seen Left Atrium Normal in size Mitral Valve Mild mitral annular calcification seen. Trace mitral regurgitation Aortic Valve Grossly normal. No significant stenosis or regurgitation. Tricuspid Valve Mild tricuspid regurgitation. Pulmonary artery systolic pressure is normal. Pulmonic Valve Mild pulmonic regurgitation Pericardium Normal Aorta Normal in size IVC Grossly dilated CONCLUSIONS Left ventricle is dilated. LV systolic function is severely reduced with EF of 10 to 15%. Grade 1 diastolic dysfunction Pacemaker wire is seen in right atrium. Mild mitral Regurgitation Mild tricuspid regurgitation Mild pulmonic regurgitation IVC is grossly dilated. Compared to prior echocardiogram from 2020, LV systolic function has decreased slightly. Juanjo Esparza MD (Electronically Signed) Final Date: 05 December 2022 15:28 S
== END 2022-11-21 11:31 | disposition home or self-care (01) ==
LOC: RAD 11:35
PROVIDERS: PCP Family Medicine; Visit Provider Internal Medicine
DX: R06.02 Shortness of breath (principal); R07.9 Chest pain, unspecified; I34.0 Nonrheumatic mitral (valve) insufficiency; I07.1 Rheumatic tricuspid insufficiency; I37.1 Nonrheumatic pulmonary valve insufficiency; Z95.0 Presence of cardiac pacemaker
CPT/HCPCS: 93306

== ENCOUNTER 2023-03-20 14:11 | Outpatient (CLI) | payer MEDICARE, OTHER, SELFPAY ==
--- NOTE | 2023-03-20 14:45 | USCV_ITS ---
Obdulio Broussard Age: 78 Gender: M : 1945 Exam Date: 03/20/2023 14:30 Ordering Phys: Fermin Carlisle MD Technologist: Exam Location: [facility] [place] Indication: lt leg pain and swelling PROCEDURES: Venous duplex imaging was performed in only the left lower extremity. The following venous structures were evaluated: common femoral vein, profunda vein, proximal portion of the greater saphenous vein, superficial femoral vein, and the popliteal vein. In addition, the posterior tibial and peroneal trunk were evaluated. FINDINGS: Normal 2-D Doppler and augmentation and compressibility throughout the lower extremity venous structures. Additional imaging through the proximal calf veins also reveals no thrombus. Limited evaluation of the greater saphenous vein is patent with no thrombus. CONCLUSIONS No evidence of left lower extremity DVT. Heraclio Teran MD (Electronically Signed) Final Date: 22 March 2023 14:46 S
== END 2023-03-20 14:12 | disposition home or self-care (01) ==
LOC: RAD 14:11
PROVIDERS: PCP Family Medicine; Visit Provider Family Medicine
DX: Z98.61 Coronary angioplasty status (principal); M79.605 Pain in left leg; M79.89 Other specified soft tissue disorders; I82.409 Acute embolism and thrombosis of unspecified deep veins of unspecified lower extremity
CPT/HCPCS: 93971

== ENCOUNTER 2023-04-14 11:38 | Outpatient (CLI) | payer MEDICARE, OTHER, SELFPAY ==
--- NOTE | 2023-04-14 12:00 | CT_ITS ---
WS: [id number] CT LUMBAR SPINE, noncontrast. HISTORY: sciatica, right-sided sciatica. TECHNIQUE: Contiguous 2.0 mm axial imaging are performed. Sagittal and coronal reformats are submitte d and reviewed. All CT scans at [facility] use at least one of these dose optimization techni ques: automated exposure control; mA and/or kV adjustment per patient size (includes targeted exams w here dose is matched to clinical indication); or iterative reconstruction. IV contrast: None DLP: 558.10 mGy.cm COMPARISON: None available. Normal posterior lumbar alignment. Disc spaces are very slightly narrowed. Vertebral body heights are well-maintained. Facet joints are normally aligned. L1-2: Normal. L2-3: Mild annular disc bulging with ligamentum flavum hypertrophy. L3-4: Mild diffuse annular disc bulging, ligamentum flavum and facet arthritis. There is mild central and subarticular recess encroachment. L4-5: Moderate annular disc bulging with a focal RIGHT paracentral and subarticular disc protrusion e xtending into the subarticular recess contacting the traversing RIGHT L5 nerve root. Moderate central with bilateral subarticular recess, RIGHT greater than LEFT stenosis. No foraminal stenosis. L5-S1: Mild osteophytic ridging and annular disc bulging. There is mild disc osteophyte contact on th e subarticular recesses and the traversing S1 nerve roots. Mild bilateral foraminal stenosis. Moderate calcification within the thoracic aorta. Calcification extends into the proximal great vesse ls in the proximal renal arteries. IMPRESSION: 1. No acute lumbar spine compression fracture. 2. L4-5: RIGHT paracentral/subarticular recess disc protrusion extending into the subarticular reces s contacting the traversing RIGHT L5 nerve root. Moderate central with bilateral subarticular recess encroachment, RIGHT greater than LEFT. 3. L5-S1: Diffuse osteophytic ridging and annular disc bulging. Disc osteophyte contacts the chevy ing L5 nerve roots. Mild central, bilateral subarticular recess and foraminal stenosis. 4. L3-4: Mild central and bilateral subarticular recess encroachment.
== END 2023-04-14 11:39 | disposition home or self-care (01) ==
LOC: RAD 11:38
PROVIDERS: PCP Family Medicine; Visit Provider Family Medicine
DX: M51.16 Intervertebral disc disorders with radiculopathy, lumbar region (principal); M25.78 Osteophyte, vertebrae; M51.37 Other intervertebral disc degeneration, lumbosacral region; M48.07 Spinal stenosis, lumbosacral region
CPT/HCPCS: 72131

== ENCOUNTER → 2023-05-06 15:03 | Outpatient (BNVA) | payer MEDICARE, OTHER, SELFPAY | PROVIDERS: PCP Family Medicine; Visit Provider Internal Medicine | DX: R05.9 Cough, unspecified (principal); I11.0 Hypertensive heart disease with heart failure; I50.9 Heart failure, unspecified; I65.29 Occlusion and stenosis of unspecified carotid artery; I25.10 Atherosclerotic heart disease of native coronary artery without angina pectoris; E78.5 Hyperlipidemia, unspecified; I42.9 Cardiomyopathy, unspecified; I48.91 Unspecified atrial fibrillation; Z87.891 Personal history of nicotine dependence; Z79.01 Long term (current) use of anticoagulants | CPT/HCPCS: 36415; 80048; 83880; 99214 ==

== ENCOUNTER → 2023-05-12 09:10 | Outpatient (BNVA) | payer MEDICARE, OTHER, SELFPAY | PROVIDERS: PCP Family Medicine; Visit Provider Anesthesiology Pain Medicine | DX: M54.9 Dorsalgia, unspecified (principal); M51.16 Intervertebral disc disorders with radiculopathy, lumbar region | CPT/HCPCS: 99204 ==

== ENCOUNTER → 2023-05-19 14:57 | Outpatient (BNVA) | payer MEDICARE, OTHER, SELFPAY | PROVIDERS: PCP Family Medicine; Visit Provider Anesthesiology Pain Medicine | DX: M54.16 Radiculopathy, lumbar region (principal) | CPT/HCPCS: 64483; 64484; J1100; J3490 ==

== ENCOUNTER → 2023-06-02 13:30 | Outpatient (BNVA) | payer MEDICARE, OTHER, SELFPAY | PROVIDERS: PCP Family Medicine; Visit Provider Anesthesiology Pain Medicine | DX: M54.16 Radiculopathy, lumbar region (principal) | CPT/HCPCS: 64483; J1100; J3490 ==

== ENCOUNTER → 2023-10-21 14:10 | Outpatient (BNVA) | payer MEDICARE, OTHER, SELFPAY | PROVIDERS: PCP Family Medicine; Visit Provider Internal Medicine | DX: I11.0 Hypertensive heart disease with heart failure (principal); I50.9 Heart failure, unspecified; I42.9 Cardiomyopathy, unspecified; I65.29 Occlusion and stenosis of unspecified carotid artery; I25.10 Atherosclerotic heart disease of native coronary artery without angina pectoris; E78.5 Hyperlipidemia, unspecified; I48.91 Unspecified atrial fibrillation; Z87.891 Personal history of nicotine dependence; Z79.01 Long term (current) use of anticoagulants | CPT/HCPCS: 36415; 80048; 83880; 99214 ==

== ENCOUNTER 2023-11-09 10:06 | Outpatient (CLI) | payer MEDICARE, OTHER, SELFPAY ==
[2023-11-09 10:56] LABS: Anion Gap 13.9 (5-19); Blood Urea Nitrogen 24 mg/dL (8-23); Calcium 8.7 mg/dL (8.5-10.5); Carbon Dioxide 25 mmol/L (22-29); Chloride 105 mmol/L (98-107); Glucose 117 mg/dL (65-115); NT Pro B Type Natriuretic Pept 258 pg/mL (0-450); Osmolality Calculated 295 mOsm/kg (285-295); Potassium 3.9 mmol/L (3.5-5.1); Sodium 140 mmol/L (136-145)
== END 2023-11-09 10:07 | disposition home or self-care (01) ==
PROVIDERS: PCP Family Medicine; Visit Provider Internal Medicine
DX: I48.91 Unspecified atrial fibrillation (principal); I10 Essential (primary) hypertension
CPT/HCPCS: 36415; 80048; 83880

== ENCOUNTER → 2023-11-24 10:19 | Outpatient (BNVA) | payer MEDICARE, OTHER, SELFPAY | PROVIDERS: PCP Family Medicine; Visit Provider Family Medicine | DX: E53.8 Deficiency of other specified B group vitamins (principal); E78.5 Hyperlipidemia, unspecified; I48.91 Unspecified atrial fibrillation | CPT/HCPCS: 80061; 82607; 83880; 85025 ==

== ENCOUNTER 2023-12-07 13:27 | Outpatient (CLI) | payer MEDICARE, OTHER, SELFPAY ==
--- NOTE | 2023-12-07 13:30 | CT_ITS ---
WS: [id number] CT ABDOMEN AND PELVIS WITH CONTRAST HISTORY: abdomial pain TECHNIQUE: Imaging performed of the abdomen and pelvis with IV contrast. Single phase imaging of the abdomen. Coronal and sagittal reformats are submitted. All CT scans at [facility] use at [address] one of these dose optimization techniques: automated exposure control; mA and/or kV adjustment per patient size (includes targeted exams where dose is matched to clinical indication); or iterative re construction. IV CONTRAST: Omnipaque 350; 100 mL IV. Oral contrast: Yes. DLP: 543.16 mGy.cm COMPARISON: 10/26/2020 Lower thorax: Lung bases are clear. Mild LEFT heart enlargement with defibrillator and pacer. No hiat al hernia. Liver/biliary system: Normal size with no intrahepatic dilatation. Gallbladder: Slightly contracted gallbladder with wall calcification. Very mild gallbladder wall enha ncement but there is no adjacent pericholecystic fluid. Normal common bile duct. Pancreas: Normal size pancreas and pancreatic duct. No adjacent inflammation. Spleen: Normal size spleen. No mass or infarct. Adrenal glands: Normal. Right kidney: Mild atrophy. No obstruction or mass. Left kidney: Low normal size kidney. No obstruction or mass. Aorta: Moderate atherosclerosis with no aneurysm. Moderate calcification at the origin of the celiac axis. Very dense heavy calcification at the origin of the SMA. Component of stenosis is likely. Addit ional plaque distally. Dense calcified plaque continues through the aortic bifurcation into the iliac arteries. Lymphadenopathy: There are few tiny central mesenteric lymph nodes surrounded by mild mesenteric stra nding which is actually improved since 2020. There is no associated mass. Free fluid: None. GI tract: Well-distended stomach. No small bowel obstruction. Appendix is not identified but there ar e no secondary findings of appendicitis. Mild constipation with retained fecal material in the RIGHT colon. Abdominal wall: Unremarkable abdominal wall. No hernia. Pelvis: No free fluid or adenopathy within the pelvis. Bones: Mild degenerative spondylitic changes in the lumbar spine. No bone destruction. CT/CT abdomen pelvis w con* [id number] IMPRESSION: 1. No acute abnormality in the RIGHT lower quadrant. 2. Advanced atherosclerosis aorta and mesenteric arteries. Components of steno sis at the celiac axis and SMA. Suspect high-grade stenosis at the SMA due to d ense calcified plaque. Luminal narrowing extends into the iliac arteries also. 3. No ascites and no adenopathy. 4. Slightly contracted gallbladder with focal wall calcification. No adjacent inflammation. Contracted gallbladder may be due to nonfasting or chronic cholec ystitis. No bile duct dilatation.
[2023-12-07] MEDS: iohexol 350 mg/mL 500 mL Btl (per mL) PO (13:43)
[2023-12-07] MEDS: iohexol 350 mg/mL 500 mL Btl (per mL) IV (14:30)
== END 2023-12-07 13:28 | disposition home or self-care (01) ==
LOC: RAD 13:28
PROVIDERS: PCP Family Medicine; Visit Provider Family Medicine
DX: K80.20 Calculus of gallbladder without cholecystitis without obstruction (principal); I70.0 Atherosclerosis of aorta; R10.9 Unspecified abdominal pain
CPT/HCPCS: 74177

== ENCOUNTER 2023-12-10 10:00 | Outpatient (CLI) | payer MEDICARE, OTHER, SELFPAY ==
[2023-12-10 11:12] LABS: Anion Gap 11.8 (5-19); Blood Urea Nitrogen 19 mg/dL (8-23); Calcium 8.6 mg/dL (8.5-10.5); Carbon Dioxide 29 mmol/L (22-29); Chloride 101 mmol/L (98-107); Glucose 108 mg/dL (65-115); NT Pro B Type Natriuretic Pept 361 pg/mL (0-450); Osmolality Calculated 289 mOsm/kg (285-295); Potassium 3.8 mmol/L (3.5-5.1); Sodium 138 mmol/L (136-145)
== END 2023-12-10 10:01 | disposition home or self-care (01) ==
LOC: LAB 10:02
PROVIDERS: PCP Family Medicine; Visit Provider Internal Medicine
DX: I48.91 Unspecified atrial fibrillation (principal); I50.9 Heart failure, unspecified; I10 Essential (primary) hypertension
CPT/HCPCS: 36415; 80048; 83880

== ENCOUNTER → 2023-12-17 10:01 | Outpatient (BNVA) | payer MEDICARE, OTHER, SELFPAY | PROVIDERS: PCP Family Medicine; Visit Provider Internal Medicine | DX: I11.0 Hypertensive heart disease with heart failure (principal); I50.9 Heart failure, unspecified; I42.9 Cardiomyopathy, unspecified; I65.29 Occlusion and stenosis of unspecified carotid artery; I25.10 Atherosclerotic heart disease of native coronary artery without angina pectoris; E78.5 Hyperlipidemia, unspecified; I48.91 Unspecified atrial fibrillation; Z87.891 Personal history of nicotine dependence; Z79.01 Long term (current) use of anticoagulants | CPT/HCPCS: 99214 ==

== ENCOUNTER → 2024-04-21 09:35 | Outpatient (BNVA) | payer MEDICARE, OTHER, SELFPAY | PROVIDERS: Absent Provider Internal Medicine; PCP Family Medicine; Visit Provider Internal Medicine | DX: I50.9 Heart failure, unspecified (principal); I48.91 Unspecified atrial fibrillation; I10 Essential (primary) hypertension | CPT/HCPCS: 80048; 83880 ==

== ENCOUNTER → 2024-05-02 10:25 | Outpatient (BNVA) | payer MEDICARE, OTHER, SELFPAY | PROVIDERS: PCP Family Medicine; Visit Provider Internal Medicine Cardiovascular Disease | DX: I48.91 Unspecified atrial fibrillation (principal) | CPT/HCPCS: 80048 ==

== ENCOUNTER 2024-05-18 08:27 | Emergency (ER) | payer MEDICARE, OTHER, SELFPAY ==
[2024-05-18 08:29] VITALS: BP 164/83; PULSE 92; RESP 16; TEMP 36.5; O2SAT 98; BMI 28.0
--- NOTE | 2024-05-18 08:38 | CT_ITS ---
WS: [id number] CT ABDOMEN AND PELVIS WITH CONTRAST HISTORY: abd pain, pain radiating into back with nausea and vomiting. TECHNIQUE: Imaging performed of the abdomen and pelvis with IV contrast. Single phase imaging of the abdomen. Coronal and sagittal reformats are submitted. All CT scans at [facility] use at least one of these dose optimization techniques: automated exposure control; mA and/or kV adjustment per patient size (includes targeted exams where dose is matched to clinical indication); or iterative reconstruction. IV CONTRAST: Omnipaque 350; 100 mL IV. Oral contrast: No DLP: 740.26 mGy.cm COMPARISON: 12/07/2023, 10/26/2020 Lower thorax: Lung bases are clear. Mild cardiomegaly. Pacer and defibrillator wires noted. Small hiatal hernia. Liver/biliary system: Normal size with no intrahepatic dilatation. Gallbladder: Normally distended gallbladder with cholelithiasis. No evidence for acute cholecystitis. Pancreas: Normal size pancreas and pancreatic duct. No adjacent inflammation. Spleen: Normal size spleen. No mass or infarct. Adrenal glands: Normal. Right kidney: Normal. Left kidney: Normal. Aorta: Mild atherosclerosis with no aneurysm. Dense calcification extends into the celiac axis as and SMA. Stenotic component of the SMA. Bilateral renal artery atherosclerotic plaque. Greater stenosis involving the LEFT proximal renal artery. Lymphadenopathy: None. Free fluid: None. GI tract: Nondistended stomach. No small bowel obstruction. No colon obstruction. No appendicitis. No diverticulitis. Abdominal wall: Tiny umbilical hernia. Pelvis: Normally distended bladder. Mild prostate enlargement encroaching into the bladder. Patent RIGHT inguinal canal contains fat. Bones: Lumbar spondylosis. CT/CT abdomen pelvis w con* [id number] IMPRESSION: 1. No acute abdominopelvic abnormalities. 2. Cholelithiasis without acute cholecystitis. 3. No GI tract obstruction or ischemia. 4. Extensive atherosclerosis within the aorta and mesenteric arteries. Suspect component of mesenteric stenosis.
--- NOTE | 2024-05-18 08:42 | W.ED.ABDPA2 ---
HPI - Abdominal Pain General: Chief Complaint: Abdominal Pain Stated Complaint: low back pain - abd pain Time Seen by Provider: 05/18/24 08:29 Source: patient Mode of arrival: ambulatory Limitations: no limitations History of Present Illness: 79-year-old male who states that he has been having some abdominal pain that radiates to his back over the last 2 days states been a sharp pain denies any worse improved factors he denies any chest pain. He states that GI issues in the past he denies fever Associated Symptoms: Denies chills, diarrhea, dysuria, fever(s), nausea and vomiting Related Data Home Medications ?Medication ?Instructions ?Recorded ?Confirmed metoprolol succinate 25 mg 25 mg PO BID 10/21/23 05/18/24 tablet,extended release 24 hr apixaban 5 mg tablet (Eliquis) 5 mg PO BID 05/18/24 05/18/24 atorvastatin 40 mg tablet 40 mg PO DAILY 05/18/24 05/18/24 clopidogrel 75 mg tablet 75 mg PO DAILY 05/18/24 05/18/24 furosemide 20 mg tablet See Rx Instructions .Route .COMPLEX 05/18/24 05/18/24 Previous Rx's ?Medication ?Instructions ?Recorded potassium chloride 20 mEq 20 meq PO DAILY #90 tabs 10/23/23 tablet,extended release sacubitril 24 mg-valsartan 26 mg 1 tab PO BID #180 tabs 02/17/24 tablet (Entresto) alprazolam 0.5 mg tablet (Xanax) 0.5 mg PO TID PRN Anxiety #90 tabs 05/11/24 nitroglycerin 0.4 mg sublingual See Rx Instructions .Route 05/11/24 tablet .COMPLEX #25 ea hydrocodone 5 mg-acetaminophen 325 1 tab PO Q6H PRN pain #14 tabs 05/18/24 mg tablet ondansetron 4 mg disintegrating 4 mg PO Q6H PRN nausea and 05/18/24 tablet vomiting #14 tabs Allergies Allergy/AdvReac Type Severity Reaction Status Date / Time amlodipine (From [facility]) Allergy Unknown Unknown Verified 05/11/24 12:07 clonidine Allergy Unknown Unknown Verified 05/11/24 12:07 doxycycline Allergy Unknown Unknown Verified 05/11/24 12:07 hydrochlorothiazide Allergy Unknown Unknown Verified 05/11/24 12:07 lisinopril Allergy Unknown Unknown Verified 05/11/24 12:07 metoprolol Allergy Unknown Unknown Verified 05/11/24 12:07 sulfamethoxazole (From Allergy Unknown Unknown Verified 05/11/24 12:07 Bactrim) trimethoprim (From Bactrim) Allergy Unknown Unknown Verified 05/11/24 12:07 aspirin AdvReac Intermediate stomach Verified 05/11/24 12:07 pain/ upset pantoprazole (From Protonix) AdvReac Intermediate upset Verified 05/11/24 12:07 stomach Review of Systems Const: Denies: fever(s), chills, body aches or change in appetite ENMT: Denies: throat pain or dental pain Card: Denies: chest pain Resp: Denies: dyspnea GI: Reports: abdominal pain; Denies: nausea, vomiting or diarrhea : Denies: dysuria Musc: Denies: neck pain or back pain Skin/Breast: Denies: rash Neuro: Denies: headache(s) PFSH ED PFSH: Medical History Atrial fibrillation Wheezing GERD (gastroesophageal reflux disease) Glaucoma CHF (congestive heart failure), NYHA class II Carotid stenosis HTN (hypertension) ASHD (arteriosclerotic heart disease) Hyperlipidemia Cardiomyopathy Surgical History Status post implantation of automatic cardioverter/defibrillator (AICD) H/O esophagogastroduodenoscopy (10/18/20) S/P hemorrhoidectomy History of colonoscopy (~2000) S/P PTCA (percutaneous transluminal coronary angioplasty) Family History Father , AGE 50 CAD (coronary artery disease) Mother , AGE 77 Congestive heart failure (CHF) Social History Smoking and tobacco/nicotine status: never used tobacco/nicotine Second hand smoke exposure: No Alcohol intake: never Substance/Drug Use: never Lives independently: Yes Household members: spouse Marital status: Current occupational status: retired Current gender identity: Male Physical Exam Const: COMMON NORMALS: no acute distress, patient oriented x3 and healthy appearing HENMT: COMMON NORMALS: normocephalic and atraumatic HEAD & SCALP: normocephalic and atraumatic Eye: COMMON NORMALS: conjunctivae normal CONJUNCTIVA: Yes conjunctivae normal Neck/C-Spine: COMMON NORMALS: full ROM and supple Chest: COMMONS NORMALS: normal inspection of the chest Resp: COMMON NORMALS: normal respiratory effort Cardio: COMMON NORMALS: regular rate, regular rhythm and No murmurs present (Cardio) RATE: regular rate RHYTHM: regular rhythm GI: COMMON NORMALS: Normal to inspection, nondistended, normoactive bowel sounds present, Soft to palpation and no masses PALPATION: Yes Soft to palpation OTHER: diffuse tenderness Extremity: COMMON NORMALS: normal to inspection and full ROM Neuro: COMMON NORMALS: patient oriented x3, moves all extremities and no focal motor deficits Psych: COMMON NORMALS: mental status grossly normal, Normal thought process present and cooperative THOUGHT PROCESS: Normal thought process present Skin: COMMON NORMALS: no rashes or lesions noted and no wounds GENERAL SKIN EXAM: no rashes or lesions noted Course Vital Signs: Vital signs: Vital Signs Temperature 97.7 F 05/18/24 08:29 Pulse Rate 92 05/18/24 08:29 Respiratory Rate 17 05/18/24 08:58 Blood Pressure 136/68 05/18/24 09:25 Pulse Oximetry 93 05/18/24 09:25 Oxygen Delivery Me thod Room Air 05/18/24 08:29 MDM - Abdominal Pain Medical Decision Making Patient presents here with abdominal pain blood work CT scan here are normal he feels improved we will get him follow-up with surgery likely needs a scope in the future we will start him on pain medicine he is return if worsening he understands agrees to plan. Medical Records I reviewed the patient's medical records. Lab Data I reviewed the patient's lab results. 05/18/24 08:44 05/18/24 08:44 Labs/Radiology: Radiology Impressions Abdomen/Pelvis CT 05/18/24 08:38 IMPRESSION: 1. No acute abdominopelvic abnormalities. 2. Cholelithiasis without acute cholecystitis. 3. No GI tract obstruction or ischemia. 4. Extensive atherosclerosis within the aorta and mesenteric arteries. Suspect component of mesenteric stenosis. Laboratory Results WBC 14.37 10^3/uL (3.29-11.43) H 05/18/24 08:44 RBC 4.87 10^6/uL (3.85-5.65) 05/18/24 08:44 Hgb 9.50 g/dL (11.27-16.99) L 05/18/24 08:44 Hct 33.6 % (37-53) L 05/18/24 08:44 MCV 69.0 fl (82-101) L 05/18/24 08:44 MCH 19.5 pg (27-33) L 05/18/24 08:44 MCHC 28.3 g/dL (30-55) L 05/18/24 08:44 RDW 18.9 % (12.1-15.1) H 05/18/24 08:44 Plt Count 248 10^3/cmm (157-399) 05/18/24 08:44 MPV 10.4 fL (7.4-10.4) 05/18/24 08:44 Neut % (Auto) 83.5 % 05/18/24 08:44 Lymph % (Auto) 6.8 % 05/18/24 08:44 [place] % (Auto) 7.8 % 05/18/24 08:44 Eos % (Auto) 0.8 % 05/18/24 08:44 Baso % (Auto) 0.8 % 05/18/24 08:44 Neut # (Auto) 12.00 10^3/uL (1.8-7.7) H 05/18/24 08:44 Lymph # (Auto) 1.0 10^3/uL (0.8-4.8) 05/18/24 08:44 [place] # (Auto) 1.1 10^3/uL (0.2-0.9) H 05/18/24 08:44 Eos # (Auto) 0.1 10^3/uL (0.0-0.8) 05/18/24 08:44 Baso # (Auto) 0.1 10^3/uL (0.0-0.1) 05/18/24 08:44 Nucleated RBC % (auto) 0 % 05/18/24 08:44 Nucleated RBCs # 0.0 /100WBC 05/18/24 08:44 Sodium 136 mmol/L (136-145) 05/18/24 08:44 Potassium 4.0 mmol/L (3.5-5.1) 05/18/24 08:44 Chloride 101 mmol/L (98-107) 05/18/24 08:44 Carbon Dioxide 22 mmol/L (22-29) 05/18/24 08:44 Anion Gap 17.0 (5-19) 05/18/24 08:44 BUN 23 mg/dL (8-23) 05/18/24 08:44 Creatinine 1.3 mg/dL (0.7-1.2) H 05/18/24 08:44 GFR Calculation Not Reportable 05/18/24 08:44 Glucose 120 mg/dL (65-115) H 05/18/24 08:44 Calculated Osmolality 287 mOsm/kg (285-295) 05/18/24 08:44 Calcium 9.2 mg/dL (8.5-10.5) 05/18/24 08:44 Total Bilirubin 0.5 mg/dL (0.15-1.2) 05/18/24 08:44 AST 17 U/L (0-40) 05/18/24 08:44 ALT 10 U/L (0-41) 05/18/24 08:44 Alkaline Phosphatase 159 U/L (40-130) H 05/18/24 08:44 Total Protein 7.4 g/dL (6.6-8.7) 05/18/24 08:44 Albumin 3.7 g/dL (3.5-5.2) 05/18/24 08:44 Globulin 3.7 g/dL (1.3-4.6) 05/18/24 08:44 Lipase 27 U/L (13-60) 05/18/24 08:44 All radiology interpretation(s) finalized by discharge EKG Data EKG 1: I personally reviewed and interpreted this EKG as follows: EKG interpretation date: 05/18/24 EKG interpretation time: 09:04 Interpretation: paced hr [address] elevation qrs 211 qtc 506 Discharge Plan Discharge Patient Disposition: Home Clinical Impression: Abdominal pain Condition: Stable Prescriptions: New hydrocodone-acetaminophen 5-325 mg tablet 1 tab PO Q6H PRN (Reason: pain) Qty: 14 0RF ondansetron 4 mg tablet,disintegrating 4 mg PO Q6H PRN (Reason: nausea and vomiting) Qty: 14 0RF No Action metoprolol succinate 25 mg tablet extended release 24 hr 25 mg PO BID nitroglycerin 0.4 mg tablet, sublingual See Rx Instructions .ROUTE .COMPLEX Qty: 25 11RF Dose Instruction: DISSOLVE ONE TABLET UNDER TONGUE EVERY 5 MINUTES FOR 3 TIMES IF NO RELIEF CALL DR/OR 911 Rx Instructions: DISSOLVE ONE TABLET UNDER TONGUE EVERY 5 MINUTES FOR 3 TIMES IF NO RELIEF CALL DR/OR 911 Xanax 0.5 mg tablet 0.5 mg PO TID PRN (Reason: Anxiety) Qty: 90 3RF potassium chloride 20 mEq tablet extended release 20 meq PO DAILY Qty: 90 3RF Entresto 24-26 mg tablet 1 tab PO BID Qty: 180 3RF atorvastatin 40 mg tablet 40 mg PO DAILY clopidogrel 75 mg tablet 75 mg PO DAILY furosemide 20 mg tablet See Rx Instructions .ROUTE .COMPLEX Rx Instructions: Take 40mg (2tablets) in the AM and at 2:00pm. Eliquis 5 mg tablet 5 mg PO BID Discharge Orders: Discharge ED (Routine); Ordered 05/18/24 Ordered By: William Dickerson Referrals: Hugh Montgomery MD [Physician] - 4-7 days Fermin Carlisle MD [Primary Care Provider] - Discharge Diet: Advance as tolerated Discharge Activity: Resume usual activity Patient Instructions: Abdominal Pain (ED) Print Language: Czech Coding Level of Care Code ED [employer] for Cipriano Roca
[2024-05-18 08:53] LABS: Basophils # 0.1 10^3/uL (0.0-0.1); Basophils % 0.8 %; Eosinophils # 0.1 10^3/uL (0.0-0.8); Eosinophils % 0.8 %; Hematocrit 33.6 % (37-53); Lymphocytes % 6.8 %; Mean Corpuscular HGB Conc 28.3 g/dL (30-55); Mean Corpuscular Hemoglobin 19.5 pg (27-33); Mean Platelet Volume 10.4 fL (7.4-10.4); Monocytes # 1.1 10^3/uL (0.2-0.9); Monocytes % 7.8 %; Neutrophils % 83.5 %; Nucleated Red Blood Cells % 0 %; Platelet Count 248 10^3/cmm (157-399); Red Blood Count 4.87 10^6/uL (3.85-5.65); Red Cell Distribution Width 18.9 % (12.1-15.1); White Blood Count 14.37 10^3/uL (3.29-11.43)
[2024-05-18 08:55] VITALS: BP 164/83; O2SAT 98
--- NOTE | 2024-05-18 08:56 | ECG_ITS ---
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 Measurements Intervals [place] Rate: 82 P: 9 [place]: 236 QRS: 135 QRSD: 211 T: -39 QT: 467 QTc: 548 Interpretive Statements ELECTRONIC VENTRICULAR PACEMAKER Compared to ECG 12/24/2020 09:28:09 Atrial-paced complex(es) or rhythm no longer present Electronically Signed On 05-21-2024 18:09:18 CAREER RESOURCE SPECIALIST by Juanjo Esparza M.D. [email or web address]
[2024-05-18 08:58] VITALS: RESP 17; O2SAT 95
[2024-05-18] MEDS: morphine 4 mg/mL SDV 1 mL IVP (08:58)
[2024-05-18] MEDS: ondansetron 2 mg/ML SDV 2 mL 4 MG IVP ×2 (09:08→10:03)
[2024-05-18 09:10] LABS: Alanine Aminotransferase 10 U/L (0-41); Albumin Level 3.7 g/dL (3.5-5.2); Alkaline Phosphatase 159 U/L (40-130); Aspartate Amino Transferase 17 U/L (0-40); Blood Urea Nitrogen 23 mg/dL (8-23); Calcium 9.2 mg/dL (8.5-10.5); Carbon Dioxide 22 mmol/L (22-29); Chloride 101 mmol/L (98-107); Creatinine Clr Calc Pharmacy 50.9335; Globulin 3.7 g/dL (1.3-4.6); Glucose 120 mg/dL (65-115); Lipase 27 U/L (13-60); Osmolality Calculated 287 mOsm/kg (285-295); Sodium 136 mmol/L (136-145); Total Bilirubin 0.5 mg/dL (0.15-1.2); Total Protein 7.4 g/dL (6.6-8.7)
[2024-05-18 09:25] VITALS: BP 136/68; O2SAT 93
[2024-05-18] MEDS: iohexol 350 mg/mL 500 mL Btl (per mL) IV (09:41)
[2024-05-18 10:39] VITALS: BP 142/76; PULSE 83; O2SAT 95
--- NOTE | 2024-05-18 10:56 | ECG_ITS ---
[facility] [place] [facility]: 2024-05[facility]18 Pat Name: Obdulio Broussard Department: Room: Gender: Male Brand Lead: : 1945 Requested By: William Dickerson Order Number: [id number] Jomar MD: Juanjo Esparza M.D. Measurements Intervals [place] Rate: 80 P: 51 [place]: 209 QRS: -76 QRSD: 245 T: 99 QT: 510 QTc: 589 Interpretive Statements ELECTRONIC VENTRICULAR PACEMAKER Compared to ECG 05/18/2024 09:04:45 No significant changes Electronically Signed On 05-21-2024 19:42:25 MECHANIC FOREMAN by Juanjo Esparza M.D. [email or web address]
--- NOTE | 2024-05-18 16:35 | DCPLANNER ---
messaged gen surg for er f/u
== END 2024-05-18 10:41 | disposition home or self-care (01) ==
PROVIDERS: Emergency Provider Emergency Medicine; PCP Family Medicine
DX: R10.9 Unspecified abdominal pain (principal); Z79.01 Long term (current) use of anticoagulants; Z79.02 Long term (current) use of antithrombotics/antiplatelets; E78.5 Hyperlipidemia, unspecified; I11.0 Hypertensive heart disease with heart failure; I50.9 Heart failure, unspecified
CPT/HCPCS: 36415; 74177; 80053; 83690; 85025; 93005; 96374; 96375; 96376; 99285; J2270; J2405

== ENCOUNTER → 2024-05-23 15:14 | Outpatient (BNVA) | payer MEDICARE, OTHER, SELFPAY | PROVIDERS: PCP Family Medicine; Visit Provider Internal Medicine | DX: I11.0 Hypertensive heart disease with heart failure (principal); I50.9 Heart failure, unspecified; I42.9 Cardiomyopathy, unspecified; I65.29 Occlusion and stenosis of unspecified carotid artery; I25.10 Atherosclerotic heart disease of native coronary artery without angina pectoris; E78.5 Hyperlipidemia, unspecified; I48.91 Unspecified atrial fibrillation; Z79.01 Long term (current) use of anticoagulants | CPT/HCPCS: 99214 ==

== ENCOUNTER → 2024-05-24 10:12 | Outpatient (BNVA) | payer MEDICARE, OTHER, SELFPAY | PROVIDERS: PCP Family Medicine; Referring Provider Emergency Medicine; Visit Provider Surgery | DX: K80.20 Calculus of gallbladder without cholecystitis without obstruction (principal) | CPT/HCPCS: 99204 ==

== ENCOUNTER 2024-06-10 14:07 | Outpatient (CLI) | payer MEDICARE, OTHER, SELFPAY ==
--- NOTE | 2024-06-10 14:15 | USCV_ITS ---
Obdulio Broussard Age: 79 Gender: M : 1945 Exam Date: 06/10/2024 14:30 Ordering Phys: Fermin Carlisle MD Technologist: Harry Lo Exam Location: [facility] – [place] Indication: chf BP: 101 / 64 HR: 77 Rhythm: Sinus Technical Quality: Adequate MEASUREMENTS (Male / Female) Normal Values 2D ECHO LV Diastolic Diameter PLAX 6.3 cm 4.2 - 5.9 / 3.9 - 5.3 cm IVS Diastolic Thickness 1.1 cm 0.6 - 1.0 / 0.6 - 0.9 cm IVS Systolic Thickness 0.7 cm LVPW Diastolic Thickness 1.7 cm 0.6 - 1.0 / 0.6 - 0.9 cm LVPW Systolic Thickness 1.9 cm LVOT Diameter 2.0 cm LV Ejection Fraction 2D Teich 15.3 % LV Ejection Fraction MOD 4C 34.6 % LV Ejection Fraction MOD 2C 25.6 % LV Ejection Fraction 2C AL 24.6 % LA Diameter 4.1 cm RA Systolic Volume 4C AL 30.0 ml RA Systolic Volume 4C MOD 29.9 ml LA Sys Volume AL 44.6 cm cubed LA Sys Volume Index AL 21.6 cm cubed/m squared Aorta at Sinotubular Diameter 2.1 cm IVC Diameter 1.4 cm M-MODE LA Ao Ratio MM 1.7 AV Cusp Separation MM 1.5 cm DOPPLER AV Peak Velocity 99.0 cm/s LVOT Peak Velocity 61.0 cm/s AV Area Cont Eq vti 2.1 cm squared AV Area Cont Eq pk 2.0 cm squared MV Peak Velocity 144.0 cm/s MV Area PHT 10.7 cm squared Mitral E to A Ratio 0.8 TV Peak Velocity 237.0 cm/s TR Peak Velocity 279.0 cm/s TR Peak Gradient 31.1 mmHg TR Mean Velocity 219.0 cm/s TR Mean Gradient 21.3 mmHg TR Velocity Time Integral 79.8 cm PV Peak Velocity 102.0 cm/s RV Ejection Time 0.3 s FINDINGS Left Ventricle Technically limited quality echocardiogram because of poor ultrasonic windows. Left ventricle is dilated. LV systolic function is severely reduced with EF of 10-15%. Severe global hypokinesis. Grade 1 diastolic dysfunction Right Ventricle Normal in size and function Right Atrium Normal in size Left Atrium Normal in size Mitral Valve Mild mitral annular calcification. Mild to moderate mitral regurgitation Aortic Valve Grossly normal Tricuspid Valve Mild tricuspid regurgitation. Pulmonary artery systolic pressure is normal Pulmonic Valve Mild pulmonic regurgitation Pericardium Normal Aorta Normal in size IVC Appears to be normal CONCLUSIONS Technically limited quality echocardiogram because of poor ultrasonic windows. Left ventricle is dilated. LV systolic function is severely reduced with EF of 10-15% Grade 1 diastolic dysfunction Mild to moderate mitral regurgitation Mild tricupid regurgitation Mild pulmonic regurgitation Compared to prior echocardiogram from 2022, no significant changes are seen Juanjo Esparza MD (Electronically Signed) Final Date: 21 June 2024 22:53 S
== END 2024-06-10 14:08 | disposition home or self-care (01) ==
LOC: RAD 14:08
PROVIDERS: PCP Family Medicine; Visit Provider Family Medicine
DX: I42.9 Cardiomyopathy, unspecified (principal); I50.9 Heart failure, unspecified; R93.1 Abnormal findings on diagnostic imaging of heart and coronary circulation; I34.0 Nonrheumatic mitral (valve) insufficiency; I34.81 Nonrheumatic mitral (valve) annulus calcification; I07.1 Rheumatic tricuspid insufficiency; I37.1 Nonrheumatic pulmonary valve insufficiency
CPT/HCPCS: 93306

== ENCOUNTER → 2024-07-05 10:17 | Outpatient (BNVA) | payer MEDICARE, OTHER, SELFPAY | PROVIDERS: PCP Family Medicine; Visit Provider Family Medicine | DX: I42.9 Cardiomyopathy, unspecified (principal); I50.9 Heart failure, unspecified; R06.2 Wheezing | CPT/HCPCS: 80053; 83880; 85025 ==

== ENCOUNTER 2024-07-07 11:21 | Inpatient (IN) | payer MEDICARE, OTHER, SELFPAY ==
[2024-07-07] VITALS (20 sets, daily range): BP systolic 86–142; BP diastolic 51–78; PULSE 78–97; RESP 16–25; TEMP 36.3–37; O2SAT 95–100; BMI 28.0
--- NOTE | 2024-07-07 12:09 | XR_ITS ---
WS: [id number] Exam: XR chest 1V portable [id number] Date/Time of Exam: 07/07/2024 1:15 PM Reason For Exam: Shortness of breath Comparison 03/24/2022. Mild bibasal plaque atelectasis. Probable small LEFT basal pleural effusion. No pneumothorax. Heart size top limits normal. Signs of coronary artery stenting. Permanent cardiac pacer superimposes the LEFT chest. The mediastinum is normal in contour. Unremarkable bony structures. XR/XR chest 1V portable [id number] IMPRESSION: 1. Mild bibasal plaque atelectasis. Probable small LEFT basal pleural effusion.
[2024-07-07 13:12] LABS: Basophils # 0.1 10^3/uL (0.0-0.1); Basophils % 0.9 %; Eosinophils # 0.1 10^3/uL (0.0-0.8); Eosinophils % 1.3 %; Hematocrit 29.4 % (37-53); Lymphocytes # 1.2 10^3/uL (0.8-4.8); Lymphocytes % 13.5 %; Mean Corpuscular HGB Conc 27.6 g/dL (30-55); Mean Corpuscular Hemoglobin 18.3 pg (27-33); Mean Corpuscular Volume 66.4 fl (82-101); Mean Platelet Volume 10.8 fL (7.4-10.4); Monocytes # 0.8 10^3/uL (0.2-0.9); Monocytes % 9.6 %; Neutrophils # 6.47 10^3/uL (1.8-7.7); Neutrophils % 74.4 %; Nucleated Red Blood Cells # 0.1 /100WBC; Nucleated Red Blood Cells % 0.6 %; Platelet Count 255 10^3/cmm (157-399); Red Blood Count 4.43 10^6/uL (3.85-5.65); Red Cell Distribution Width 19.4 % (12.1-15.1); White Blood Count 8.71 10^3/uL (3.29-11.43)
[2024-07-07 13:29] LABS: Troponin(5th) Baseline 57 ng/L (0-15)
[2024-07-07 13:30] LABS: Lactic Sepsis W/Reflex 2.1 mmol/L (0.5-2.2)
--- NOTE | 2024-07-07 13:57 | PC.PHAR ---
called dr wolf's office for what medications they have him on, patient dont know, who normally helps didnt bring the list and said she doesnt know without it
--- NOTE | 2024-07-07 14:03 | ED_ITS ---
HPI - Weakness 2 General: Chief complaint: Weakness Stated complaint: weakness, swelling lower extremities Time Seen by Provider: 07/07/24 13:26 Source: patient Mode of arrival: ambulatory Limitations: no limitations History of Present Illness: Patient is a 79-year-old male with past medical history of atrial fibrillation, CHF, arteriosclerotic heart disease, hyperlipidemia, cardiomyopathy, carotid stenosis, and hypertension who presents to the emergency department referred by primary care's office due to progressive shortness of breath and weakness over the past couple of weeks. He also notes a history of 9 cardiac stents placed. States that he has noticed that his legs have been significantly swollen up to the knees, and he has not been able to sleep at night due to progressive coughing and feeling short of breath. He does not use home O2. Reportedly his hemoglobin with primary care was low, here it is currently 8.1. Denies history of anemia or ever needing transfused. He is not reporting any chest pain during his episodes of shortness of breath, though he does note that his shortness of breath and weakness have been constant since onset. He is on Lasix, taking 80 mg twice a day. Denies any decrease in urination, no history of chronic kidney disease. Currently at this time his vitals are within normal limits, he notes that specifically his symptoms are worsened with any exertion whatsoever, and he does endorse orthopnea. MD Complaint: generalized weakness Onset (ago): week(s) Duration: constant Location: generalized Severity: moderate Exacerbating factors: exertion Context: other Associated symptoms: Denies chest pain, chills, dysuria, fever(s), headache(s), nausea or vomiting Review of Systems 2 General: Reports: 10 or more systems reviewed and unremarkable except in HPI and below Const: Reports: fatigue and malaise; Denies: fever(s) or chills Eyes: Denies: change in vision ENMT: Denies: throat pain, ear or mastoid pain or nasal discharge Card: Reports: edema, swelling of feet/ankles, dyspnea on exertion and orthopnea; Denies: chest pain, palpitations or lightheadedness Resp: Reports: dyspnea and productive cough; Denies: wheezing GI: Denies: abdominal pain, nausea, vomiting, diarrhea or constipation : Denies: flank pain, difficulty urinating, dysuria or urinary frequency Musc: Reports: extremity swelling; Denies: neck pain, back pain or joint pain Skin/Breast: Denies: rash Neuro: Reports: weakness in extremities; Denies: headache(s) or numbness in extremities PFSH ED 2 PFSH: Medical History Atrial fibrillation Wheezing GERD (gastroesophageal reflux disease) Glaucoma CHF (congestive heart failure), NYHA class II Carotid stenosis HTN (hypertension) ASHD (arteriosclerotic heart disease) Hyperlipidemia Cardiomyopathy Surgical History Status post implantation of automatic cardioverter/defibrillator (AICD) H/O esophagogastroduodenoscopy (10/18/20) S/P hemorrhoidectomy History of colonoscopy (~2000) S/P PTCA (percutaneous transluminal coronary angioplasty) Family History Father , AGE 50 CAD (coronary artery disease) Mother , AGE 77 Congestive heart failure (CHF) Social History Smoking and tobacco/nicotine status: never used tobacco/nicotine Second hand smoke exposure: No Alcohol intake: never Substance/Drug Use: never Lives independently: Yes Household members: spouse Marital status: Current occupational status: retired Current gender identity: Male Physical Exam 2 Const: COMMON NORMALS: patient oriented x3, no limitations and alert G ENERAL APPEARANCE: cooperative and comfortable ORIENTATION/CONSCIOUSNESS: Yes awake HENMT: COMMON NORMALS: normocephalic, atraumatic and moist oral mucous membranes HEAD & SCALP: normocephalic and atraumatic Eye: COMMON NORMALS: EOMs intact bilaterally, conjunctivae normal and no scleral icterus CONJUNCTIVA: Yes conjunctivae normal Neck/C-Spine: COMMON NORMALS: full ROM and no JVD Resp: COMMON NORMALS: normal respiratory effort, No retractions and No use of accessory muscles EFFORT & INSPECTION: Yes able to speak in complete sentences, Yes symmetric chest movement and Yes audible wheezes AUSCULTATION: crackles (Basilar) Laterality: bilateral Cardio: COMMON NORMALS: no JVD, regular rate, No gallops present (Cardio), No murmurs present (Cardio) and No rub (Cardio) RATE: regular rate RHYTHM: a bnormal rhythm irregularly irregular GI: COMMON NORMALS: non-tender INSPECTION: Yes central obesity Extremity: COMMON NORMALS: full ROM NARRATIVE EXTREMITY EXAM: 3+ pitting edema bilaterally up to the k nees Neuro: COMMON NORMALS: patient oriented x3, moves all extremities, no focal motor deficits and no sensory deficits noted SENSORIUM/ORIENTATION: Yes alert Skin: COMMON NORMALS: no rashes or lesions noted NARRATIVE SKIN EXAM: Clear drainage from bilateral shins secondary to edema GENERAL SKIN EXAM: no rashes or lesions noted Course 2 Vital Signs: Vital signs: Vital Signs Temperature 98.3 F 07/07/24 11:43 Pulse Rate 94 07/07/24 13:30 Respiratory Rate 16 07/07/24 11:43 Blood Pressure 129/62 07/07/24 15:00 Pulse Oximetry 98 07/07/24 15:00 Oxygen Delivery Me thod Room Air 07/07/24 11:43 MDM - Weakness Medical Decision Making This patient was sent by Dr. Prieto for evaluation of 2 weeks of worsening shortness of breath and weakness. Reportedly was found to be anemic by lab work in the office. He had extensive past medical history, including CHF as well as coronary artery disease with 8 stents. Takes 80 mg of Lasix twice a day. On exam there is 3+ pitting edema bilaterally up to the knees, and on chest x-ray evidence of pleural effusion. Also had some bibasilar crackles on exam, and hemoglobin here found to be 8.1, however this is increased from his prior hemoglobin obtained with primary care. 40 mg of Lasix IV given here, his vitals have remained stable and he has been greater than 98% SpO2 on room air. Viral swab negative, creatinine not significantly elevated compared to prior, and his electrolytes are unremarkable at this time. He does note to me that he takes oral p.o. potassium, 3.6 here today by metabolic panel. His BNP was 2500. EKG reviewed with physician showing electronic ventricular paced rhythm, he does have a history of atrial fibrillation. On Eliquis. Clinically he does appear that he would benefit from close diuresis in the hospital, I spoke to admitting hospitalist, Dr. Varghese, who kindly agrees to accept the patient to cardiac stepdown and Dr. Armendariz is putting in admit orders at this time. Informed patient of plan for admission, to which she agrees and all other questions and concerns addressed at this time. Lab Data 07/07/24 12:59 07/07/24 12:59 Radiology Impressions Chest X-Ray 07/07/24 12:09 IMPRESSION: 1. Mild bibasal plaque atelectasis. Probable small LEFT basal pleural effusion. Laboratory Results WBC 8.71 10^3/uL (3.29-11.43) 07/07/24 12:59 RBC 4.43 10^6/uL (3.85-5.65) 07/07/24 12:59 Hgb 8.10 g/dL (11.27-16.99) L 07/07/24 12:59 Hct 29.4 % (37-53) L 07/07/24 12:59 MCV 66.4 fl (82-101) L 07/07/24 12:59 MCH 18.3 pg (27-33) L 07/07/24 12:59 MCHC 27.6 g/dL (30-55) L 07/07/24 12:59 RDW 19.4 % (12.1-15.1) H 07/07/24 12:59 Plt Count 255 10^3/cmm (157-399) 07/07/24 12:59 MPV 10.8 fL (7.4-10.4) H 07/07/24 12:59 Neut % (Auto) 74.4 % 07/07/24 12:59 Lymph % (Auto) 13.5 % 07/07/24 12:59 Dyer % (Auto) 9.6 % 07/07/24 12:59 Eos % (Auto) 1.3 % 07/07/24 12:59 Baso % (Auto) 0.9 % 07/07/24 12:59 Neut # (Auto) 6.47 10^3/uL (1.8-7.7) 07/07/24 12:59 Lymph # (Auto) 1.2 10^3/uL (0.8-4.8) 07/07/24 12:59 Dyer # (Auto) 0.8 10^3/uL (0.2-0.9) 07/07/24 12:59 Eos # (Auto) 0.1 10^3/uL (0.0-0.8) 07/07/24 12:59 Baso # (Auto) 0.1 10^3/uL (0.0-0.1) 07/07/24 12:59 Nucleated RBC % (auto) 0.6 % 07/07/24 12:59 Nucleated RBCs # 0.1 /100WBC 07/07/24 12:59 Sodium 135 mmol/L (136-145) L 07/07/24 12:59 Potassium 3.6 mmol/L (3.5-5.1) 07/07/24 12:59 Chloride 96 mmol/L (98-107) L 07/07/24 12:59 Carbon Dioxide 25 mmol/L (22-29) 07/07/24 12:59 Anion Gap 17.6 (5-19) 07/07/24 12:59 BUN 25 mg/dL (8-23) H 07/07/24 12:59 Creatinine 1.4 mg/dL (0.7-1.2) H 07/07/24 12:59 GFR Calculation Not Reportable 07/07/24 12:59 Glucose 111 mg/dL (65-115) 07/07/24 12:59 Calculated Osmolality 285 mOsm/kg (285-295) 07/07/24 12:59 Lactic Acid 2.1 mmol/L (0.5-2.2) 07/07/24 12:59 Calcium 8.8 mg/dL (8.5-10.5) 07/07/24 12:59 Total Bilirubin 0.8 mg/dL (0.15-1.2) 07/07/24 12:59 AST 42 U/L (0-40) H 07/07/24 12:59 ALT 23 U/L (0-41) 07/07/24 12:59 Alkaline Phosphatase 160 U/L (40-130) H 07/07/24 12:59 Troponin T Baseline 57 ng/L (0-15) H 07/07/24 12:59 NT-Pro-B Natriuret Pep 2369 pg/mL (0-450) H 07/07/24 12:59 Total Protein 6.8 g/dL (6.6-8.7) 07/07/24 12:59 Albumin 3.8 g/dL (3.5-5.2) 07/07/24 12:59 Globulin 3.0 g/dL (1.3-4.6) 07/07/24 12:59 Influenza A (PCR) Negative (Negative) 07/07/24 13:37 Influenza Type B (PCR) Negative (Negative) 07/07/24 13:37 RSV (PCR) Negative (Negative) 07/07/24 13:37 SARS-CoV-2 (PCR) Negative (Negative) 07/07/24 13:37 Blood Type AB Positive 07/07/24 12:59 Rho(D) Type Rh positive 07/07/24 12:59 Antibody Screen Negative 07/07/24 12:59 All radiology interpretation(s) finalized by discharge Discharge Plan Discharge Patient Disposition: Admitted As Inpatient Clinical Impression: Acute exacerbation of CHF (congestive heart failure) Qualifiers: Heart failure type: unspecified Qualified Code(s): I50.9 - Heart failure, unspecified Anemia Qualifiers: Anemia type: unspecified type Qualified Code(s): D64.9 - Anemia, unspecified Condition: Stable Coding Level of Care Code ED Critical Care Clinical Nurse Specialist for Chg Fwd Related Data Home Medications ?Medication ?Instructions ?Recorded ?Confirmed metoprolol succinate 25 mg 25 mg PO BID 10/21/2307/07 tablet,extended release 24 hr apixaban 5 mg tablet (Eliquis) 5 mg PO BID 05/18/24 atorvastatin 40 mg tablet 40 mg PO DAILY 05/18/2406/15 clopidogrel 75 mg tablet 75 mg PO DAILY 05/18/2406/15 Previous Rx's ?Medication ?Instructions ?Recorded potassium chloride 20 mEq 20 meq PO DAILY #90 tabs 12/07 tablet,extended release alprazolam 0.5 mg tablet (Xanax) 0.5 mg PO TID PRN Anx iety #90 tabs 05/11/24 nitroglycerin 0.4 mg sublingual See Rx Instructions .R oute 05/11/24 tablet .COMPLEX #25 ea sacubitril 24 mg-valsartan 26 mg 1 tab PO BID #180 tab s 05/23/24 tablet (Entresto) furosemide 80 mg tablet 80 mg PO BID #60 tabs Allergies Allergy/AdvReac Type Severity Reaction Status Date / Time amlodipine (From [facility]) Allergy Unknown ADR-Abdominal Verified 07/07/24 11:48 Pain clonidine Allergy Unknown ADR-Abdominal Verified 07/07/24 11:48 Pain doxycycline Allergy Unknown ADR-Abdominal Verified 07/07/24 11:48 Pain hydrochlorothiazide Allergy Unknown ADR-Fatigue Verified 07/07/24 11:48 d lisinopril Allergy Unknown ADR-Fatigue Verified 07/07/24 11:48 d metoprolol Allergy Unknown ADR-Fatigue Verified 07/07/24 11:48 d sulfamethoxazole (From Allergy Unknown ADR-Abdominal Verified 07/07/24 11:48 Bactrim) Pain trimethoprim (From Bactrim) Allergy Unknown ADR-Abdominal Verified 07/07/24 11:48 Pain morphine Allergy ADR-Vomitin Verified 07/07/24 11:48 g aspirin AdvReac Intermediate stomach Verified 05/24/24 10:36 pain/ upset pantoprazole (From Protonix) AdvReac Intermediate upset Verified 05/24/24 10:36 stomach
--- NOTE | 2024-07-07 14:10 | ECG_ITS ---
[facility]: 2024-07-07 Pat Name: Obdulio Broussard Department: Room: Gender: Male Triage Register Nurse: : 1945 Requested By: Donna Gaines Order Number: [id number] Hadley MD: Adelina Harvey M.D. Measurements Intervals [place] Rate: 90 P: 2 [place]: 195 QRS: -83 QRSD: 225 T: 83 QT: 434 QTc: 534 Interpretive Statements ELECTRONIC VENTRICULAR PACEMAKER ABNORMAL RHYTHM ECG Compared to ECG 05/18/2024 10:21:46 No significant changes Electronically Signed On 07-08-2024 10:42:35 CDT by Adelina Harvey M.D. [email or web address]
[2024-07-07] MEDS: FUROsemide 10 mg/mL SDV 4mL 40 MG IVP (14:15)
[2024-07-07 14:20] LABS: Influenza A NEGATIVE (Negative); Influenza B NEGATIVE (Negative); Respiratory Syncytial Virus Ce NEGATIVE (Negative); SARS-CoV-2 PCR NEGATIVE (Negative)
[2024-07-07 14:52] LABS: Alanine Aminotransferase 23 U/L (0-41); Albumin Level 3.8 g/dL (3.5-5.2); Alkaline Phosphatase 160 U/L (40-130); Anion Gap 17.6 (5-19); Aspartate Amino Transferase 42 U/L (0-40); Blood Urea Nitrogen 25 mg/dL (8-23); Calcium 8.8 mg/dL (8.5-10.5); Carbon Dioxide 25 mmol/L (22-29); Chloride 96 mmol/L (98-107); Creatinine Clr Calc Pharmacy 47.2954; Glucose 111 mg/dL (65-115); Osmolality Calculated 285 mOsm/kg (285-295); Potassium 3.6 mmol/L (3.5-5.1); Sodium 135 mmol/L (136-145); Total Bilirubin 0.8 mg/dL (0.15-1.2); Total Protein 6.8 g/dL (6.6-8.7)
[2024-07-07 14:57] LABS: Reflex Lactate Order REFLEX LACTIC ORDERD
[2024-07-07 15:00] LABS: NT Pro B Type Natriuretic Pept 2369 pg/mL (0-450)
[2024-07-07 15:26] LABS: Troponin 5 2HR 60.89 ng/L (0-15); Troponin 5 2HR Delta 3.89 ABS# (0-10)
[2024-07-07 16:06] LABS: Lactic Acid level (Lactate) 2.1 mmol/L (0.5-2.2)
--- NOTE | 2024-07-07 16:17 | USCV_ITS ---
Obdulio Broussard Age: 79 Gender: M : 1945 Exam Date: 07/07/2024 17:49 Ordering Phys: Yesenia Varghese MD Technologist: RAMO [place]am [place] [facility] [place] Indication: Worsening HF BP: 133 / 53 HR: 83 Rhythm: Sinus Technical Quality: Adequate MEASUREMENTS (Male / Female) Normal Values 2D ECHO LV Diastolic Diameter PLAX 7.3 cm 4.2 - 5.9 / 3.9 - 5.3 cm IVS Diastolic Thickness 1.0 cm 0.6 - 1.0 / 0.6 - 0.9 cm IVS Systolic Thickness 1.3 cm LVPW Diastolic Thickness 1.0 cm 0.6 - 1.0 / 0.6 - 0.9 cm LVPW Systolic Thickness 1.2 cm LVOT Diameter 2.0 cm LV Ejection Fraction 2D Teich 23.3 % LV Ejection Fraction MOD 4C 39.7 % LV Ejection Fraction MOD 2C 32.9 % LV Ejection Fraction 2C AL 33.5 % LA Diameter 3.7 cm RA Systolic Volume 4C AL 84.0 ml RA Systolic Volume 4C MOD 79.2 ml LA Sys Volume AL 93.0 cm cubed LA Sys Volume Index AL 45.0 cm cubed/m squared Aorta at Sinotubular Diameter 2.5 cm IVC Diameter 1.9 cm M-MODE LA Ao Ratio MM 0.9 AV Cusp Separation MM 1.3 cm DOPPLER AV Peak Velocity 133.0 cm/s LVOT Peak Velocity 100.0 cm/s AV Area Cont Eq vti 1.9 cm squared AV Area Cont Eq pk 2.3 cm squared MV Peak Velocity 140.0 cm/s MV Area PHT 6.6 cm squared Mitral E to A Ratio 1.3 TR Peak Velocity 85.0 cm/s TR Peak Gradient 2.9 mmHg TV Peak E Velocity 34.0 cm/s PV Peak Velocity 91.0 cm/s FINDINGS Left Ventricle Moderately increased left ventricular cavity size. Diffuse hypokinesis left-ventricular, more so of the apex. LV ejection fraction of 25 %. Right Ventricle Possibly normal size ejection fraction.catheter/pacemaker wire in the right ventricular cavity. Right Atrium Possibly of normal size Left Atrium Mildly increased left atrial size. Mitral Valve Mild mitral valve regurgitation. Aortic Valve thickened aortic valve. Tricuspid Valve Tricuspid valve not well visualized. Pulmonic Valve Pulmonic valve not well visualized. Pericardium No pericardial effusion. Aorta Normal aortic annulus size. IVC Normal IVC dimension with <50% respiratory change of the inferior vena cava. CONCLUSIONS Moderately increased left ventricular cavity size. Diffuse hypokinesis left-ventricular, more so of the apex. LV ejection fraction of 25% (visual). Mildly increased left atrial size. Mild mitral valve regurgitation. Thickened aortic valve. Right-sided structures could not be visualized well Compared to the study from 06/02/2024, there is some improvement in the LV ejection fraction Technically difficult study Dr Adelina Harvey MD [facility] (Electronically Signed) Final Date: 07 July 2024 21:21 S
--- NOTE | 2024-07-07 16:17 | PM.HP ---
Providers/Chief Complaint Primary Care Provider: Fermin Carlisle MD Chief Complaint: weakness, swelling lower extremities History of Present Illness Obdulio Broussard is a 79 year old male With past medical history of carotid stenosis, CHF, hypertension, hyperlipidemia, GERD, atrial fibrillation, coronary artery disease status post PCI, ICD placement presented to the hospital today for complaint of feeling generalized weakness and worsening deconditioning. He states he has been having progressive shortness of breath and weakness over the last few weeks. He has a history of 9 stents. He states his legs have also been swollen up to his thighs. He is unable to lay flat and has been having orthopnea. He just cannot catch his breath when he lays down. He states he tries to take a deep breath or feels he cannot get the air in. The symptoms are worse when he tries to lay down. Denies any chest pain. Also states that he has been told his blood counts have been low. Colonoscopy was years ago. He also states that his EF is 15 to 20% and nobody will do a colonoscopy on him even if he needed it. He states he would like to be DNR/DNI and his is aware of this. His main complaint is shortness of breath that worsens on exertion. He states he cannot even walk from his bed up to the door and just feels very very exhausted when he tries to do so. Denies nausea vomiting diarrhea abdominal pain chest pain any other symptoms. Denies blood in stool however states he is on a blood thinner and sometimes notices his stool is extra brown however has never noticed it to be black or red. Today he went to see his primary care doctor and was found to be anemic by lab work in the office and therefore was advised to go to the emergency department. ER course: BNP 2500, potassium 3.6, hemoglobin 8.1. 3+ pitting edema bilateral lower extremities. Chest x-ray shows pleural effusion. He was given 60 IV Lasix x 1.. Troponins delta negative. Third troponin still pending. EKG shows paced rhythm. Hospitalist has been requested to admit patient. Medications/Allergies Home Medications ?Medication ?Instructions ?Recorded ?Confirmed ?Last Taken ?Type metoprolol succinate 25 mg 25 mg PO BID 10/21/23 07/07/24 07/06/24 History tablet,extended release 24 hr potassium chloride 20 mEq 20 meq PO DAILY #90 tabs 10/23/23 07/07/24 07/06/24 Rx tablet,extended release alprazolam 0.5 mg tablet (Xanax) 0.5 mg PO TID PRN Anxiety #90 tabs 05/11/24 07/07/24 07/06/24 Rx nitroglycerin 0.4 mg sublingual See Rx Instructions .Route 05/11/24 07/07/24 Unknown Rx tablet .COMPLEX #25 ea apixaban 5 mg tablet (Eliquis) 5 mg PO BID 05/18/24 07/07/24 07/06/24 History atorvastatin 40 mg tablet 40 mg PO DAILY 05/18/24 07/07/24 07/06/24 History clopidogrel 75 mg tablet 75 mg PO DAILY 05/18/24 07/07/24 07/06/24 History sacubitril 24 mg-valsartan 26 mg 1 tab PO BID #180 tabs 05/23/24 07/07/24 07/06/24 Rx tablet (Entresto) furosemide 80 mg tablet 80 mg PO BID #60 tabs 07/05/24 07/07/24 07/06/24 Rx Allergies Allergy/AdvReac Type Severity Reaction Status Date / Time amlodipine (From Norvasc) Allergy Unknown ADR-Abdominal Verified 07/07/24 11:48 Pain clonidine Allergy Unknown ADR-Abdominal Verified 07/07/24 11:48 Pain doxycycline Allergy Unknown ADR-Abdominal Verified 07/07/24 11:48 Pain hydrochlorothiazide Allergy Unknown ADR-Fatigue Verified 07/07/24 11:48 d lisinopril Allergy Unknown ADR-Fatigue Verified 07/07/24 11:48 d metoprolol Allergy Unknown ADR-Fatigue Verified 07/07/24 11:48 d sulfamethoxazole (From Allergy Unknown ADR-Abdominal Verified 07/07/24 11:48 Bactrim) Pain trimethoprim (From Bactrim) Allergy Unknown ADR-Abdominal Verified 07/07/24 11:48 Pain morphine Allergy ADR-Vomitin Verified 07/07/24 11:48 g aspirin AdvReac Intermediate stomach Verified 05/24/24 10:36 pain/ upset pantoprazole (From Protonix) AdvReac Intermediate upset Verified 05/24/24 10:36 stomach PFSH Acute PFSH: Medical History Atrial fibrillation Wheezing GERD (gastroesophageal reflux disease) Glaucoma CHF (congestive heart failure), NYHA class II Carotid stenosis HTN (hypertension) ASHD (arteriosclerotic heart disease) Hyperlipidemia Cardiomyopathy Surgical History Status post implantation of automatic cardioverter/defibrillator (AICD) H/O esophagogastroduodenoscopy (10/18/20) S/P hemorrhoidectomy History of colonoscopy (~2000) S/P PTCA (percutaneous transluminal coronary angioplasty) Family History Father , AGE 50 CAD (coronary artery disease) Mother , AGE 77 Congestive heart failure (CHF) Social History Smoking and tobacco/nicotine status: never used tobacco/nicotine Second hand smoke exposure: No Alcohol intake: never Substance/Drug Use: never Lives independently: Yes Household members: spouse Marital status: Current occupational status: retired Current gender identity: Male Vitals/I&O/Wt Last Vital Signs Temp 98.3 F 07/07/24 11:43 Pulse 94 07/07/24 13:30 Resp 16 07/07/24 11:43 BP 129/62 07/07/24 15:00 Pulse Ox 98 07/07/24 15:00 O2 Del Method Room Air 07/07/24 11:43 Weight last 48 hrs Weight 86.183 kg Physical Exam Narrative: General: Alert oriented x3, patient seen laying in bed, appears deconditioned and tired. No conversational dyspnea no acute distress otherwise. HEENT: Normocephalic, atraumatic, EOMI, Cardio: Regular rate rhythm, normal S1-S2, Respiratory: Crackles bilaterally at bases. no wheezes or ronchi GI: Abdomen soft, nontender, bowel sounds + Extremities: 3+ pitting edema b/l LE Data 07/07/24 12:59 07/07/24 12:59 Micro: Microbiology 07/07/24 13:51 Blood Culture - Preliminary Blood SPECIMEN COLLECTED 07/07/24 12:50 Blood Culture - Preliminary Blood SPECIMEN COLLECTED A&P Assessment and plan (1) Symptomatic anemia: (2) Acute exacerbation of CHF (congestive heart failure): Qualifiers: Heart failure type: unspecified Qualified Code(s): I50.9 - Heart failure, unspecified (3) HTN (hypertension): (4) Cardiomyopathy: (5) S/P PTCA (percutaneous transluminal coronary angioplasty): (6) Atrial fibrillation: (7) Carotid stenosis: (8) Hyperlipidemia: (9) Anemia: Qualifiers: Anemia type: unspecified type Qualified Code(s): D64.9 - Anemia, unspecified (10) DNR (do not resuscitate): (11) Chronic anticoagulation: Plan #Physical deconditioning, shortness of breath on exertion #Acute symptomatic anemia, most likely iron deficiency #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 Patient takes 80 twice daily Lasix at home however he states his urination has decreased. He is not decompensated heart failure ? Hold Eliquis at this time secondary to anemia. Will continue Plavix ? Continue atorvastatin ? Placed on Lasix 60 IV 3 times daily, potassium 20 daily ? Continue Entresto, will hold if blood pressure soft. ? Hemoglobin 8.1 today. Baseline has been between 10 and 11. 2022 hemoglobin was 15-16. 20 2411.40. Subsequently last few months it has been 9.5 range. On routine labs in office was 7.1. Today 8.1. Check iron studies, iron, TIBC, ferritin. MCV noted to be low 66.4. RDW 18.3. Most likely consistent with iron deficiency anemia. Etiology unknown at this time. Check FOBT. Patient will benefit from colonoscopy. Will consider ordering IV iron. ? Type and screen. Threshold to transfuse for hemoglobin less than 8. Patient's symptoms are most likely secondary to profound anemia with a combination of decompensated CHF. He does endorses orthopnea as well. ? Check echocardiogram ? Continue IV Lasix as noted above. ? Creatinine 1.4 at patient's baseline. ? Check hemoglobin A1c, lactic acid. Await 6-hour troponin. ? First troponin 57, second troponin 60.9. Most likely elevated secondary demand ischemia. ? Patient is not having any chest pain. Shortness of breath on exertion and deconditioning is more likely symptomatic anemia with component of decompensation heart failure. BNP 2300. ? No active evidence or source of bleeding at this time. Denies hematuria, blood in stool. ? Will check urinalysis to rule out hematuria ? Check CT chest abdomen pelvis to rule out other pathology ? Check peripheral smear ? I will hold off on DVT prophylaxis at this time. - Check haptoglobin, D-dimer, DIC profile, direct Nannette test, LDH, reticulocyte count. DNR/DNI Patient states he would like to be DNR/DNI and does not want any heroic measures. He states his is also aware of this. I did ask him if he wanted to fill out a DNR paperwork however he stated he is not interested in that at this time however is sure that he wants to be a DNR. He understands chest compressions will be performed and we will not put a breathing tube if he stops breathing. Patient states he is okay with this. PDMP PDMP Reviewed: Not Reviewed Attestations Medical Necessity Statement*: > 2 midnight stay for decompensated CHF, symptomatic anemia Diagnoses Symptomatic anemia D64.9 Acute exacerbation of CHF (congestive heart failure) I50.9 Heart failure type: unspecified HTN (hypertension) I10 Cardiomyopathy I42.9 S/P PTCA (percutaneous transluminal coronary angioplasty) Z98.61 Atrial fibrillation I48.91 Carotid stenosis I65.29 Hyperlipidemia E78.5 Anemia D64.9 Anemia type: unspecified type DNR (do not resuscitate) Z66 Chronic anticoagulation Z79.01
[2024-07-07 16:56] LABS: Ferritin 20 ng/mL (30-400); Iron 14 ug/dL (59-158); Total Iron Binding Capacity 344 mcg/dl; Unsaturated Iron Binding 330 ug/dL (112-347)
[2024-07-07 16:59] LABS: Estmated Average Glucose 103; Hemoglobin A1C 5.2 % (4.0-6.0)
[2024-07-07 17:02] LABS: Procalcitonin 0.16 ng/mL (0-0.5)
--- NOTE | 2024-07-07 18:09 | ECG_ITS ---
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 Measurements Intervals [place] Rate: 92 P: 23 UT: 135 QRS: -90 QRSD: 261 T: 81 QT: 485 QTc: 602 Interpretive Statements ELECTRONIC VENTRICULAR PACEMAKER ABNORMAL RHYTHM ECG Compared to ECG 07/07/2024 14:10:20 No significant changes Electronically Signed On 07-08-2024 10:42:10 CDT by Adelina Harvey M.D. [id number]
[2024-07-07 19:51] LABS: Troponin 5 6HR 75.96 ng/L (0-15)
[2024-07-07 20:47] LABS: Troponin 5 6HR Delta 18.96 ng/L (0-12)
[2024-07-07] MEDS: metoprolol succinate ER (24 HR) 25 mg Tablet PO (20:54)
[2024-07-07] MEDS: sacubitril/valsartan 24-26 mg Tablet 1 EACH PO (20:55)
[2024-07-07] MEDS: ipratropium-albuterol 3 mL Neb INHALATION (21:26)
[2024-07-07] MEDS: ALPRAZolam 0.5 mg Tablet PO (21:41)
[2024-07-07] MEDS: iron sucrose 200 MG in sodium chloride 0.9% (100 ml) 100 ML 220 MG IV (21:41)
[2024-07-08] VITALS (16 sets, daily range): BP systolic 105–130; BP diastolic 54–72; PULSE 76–84; RESP 18–26; TEMP 36.3–36.9; O2SAT 91–100
[2024-07-08] MEDS: FUROsemide 10 mg/mL SDV 10mL 60 MG IVP ×3 (00:20→16:21)
--- NOTE | 2024-07-08 00:22 | CT_ITS ---
WS: [id number] CT CHEST, ABDOMEN, AND PELVIS TECHNIQUE: Noncontrast CT of the chest, abdomen, and pelvis with coronal and sagittal reformatted images. CLINICAL INFORMATION: symptomatic anemia, r/o malignancy COMPARISON: None. DLP: 1051.[address] scans at [facility] use at least one of these dose optimization techniques: automated exposure control; mA and/or kV adjustment per patient size (includes targeted exams where dose is matched to clinical indication); or iterative reconstruction. CT CHEST: Moderate RIGHT greater than LEFT pleural effusions with compressive atelectasis in the lung bases. Upper lungs are better aerated. No mediastinal or hilar lymphadenopathy. No axillary lymphadenopathy. Aortic calcification. Cardiac pacer. Moderate thoracic kyphosis. Ankylosis thoracic spine. CT ABDOMEN AND PELVIS: Noncontrast liver is normal. Vicarious excretion of contrast in the gallbladder. Tiny esophageal hiatal hernia. Noncontrast pancreas is normal. Adrenal glands are normal. No hydronephrosis in either kidney. Adrenal glands are normal. Normal caliber abdominal aorta. Dense vascular calcification.Slight retrolisthesis L5 on S1. Small fat-containing RIGHT inguinal hernia. CT/[place] [id number] IMPRESSION: 1. Moderate RIGHT greater than LEFT pleural effusions. Bibasilar atelectasis. 2. No acute findings in the noncontrast abdomen or pelvis. 3. Dense abdominal vascular mesenteric calcification. Normal caliber abdominal aorta.
--- NOTE | 2024-07-08 00:22 | USCV_ITS ---
Obdulio Broussard Age: 79 Gender: M : 1945 Exam Date: 07/08/2024 00:33 Ordering Phys: Yesenia Varghese MD Technologist: DAVID [place] [facility] [place]: r/o dvt 2+ pitting edema bilateral lower extremities HISTORY: r/o dvt 2+ pitting edema bilateral lower extremities PROCEDURES: Venous duplex imaging was performed in bilateral lower extremities. The following venous structures were evaluated: common femoral vein, profunda vein, proximal portion of the greater saphenous vein, superficial femoral vein, and the popliteal vein. In addition, the posterior tibial and peroneal veins were evaluated. Pulsatile bilateral lower extremity venous compartments is consistent with CHF. Serial compression, augmentation maneuvers, and spectral Doppler flow evaluation were performed, which were normal. Bilaterally, the common femoral, superficial femoral, profunda femoral, popliteal, posterior tibial, greater saphenous veins, and the peroneal veins were identified and interrogated in the standard fashion. These veins were found to be easily compressible with spontaneous blood flow. No evidence of thrombus noted. CONCLUSIONS No evidence of right lower extremity DVT. No evidence of left lower extremity DVT. Heraclio Teran MD (Electronically Signed) Final Date: 08 July 2024 15:44 S
[2024-07-08 02:59] LABS: Reflex FDPQ test REFLEX FDP QUEST TES
[2024-07-08 03:00] LABS: Reticulocyte % 2.1 % (0.5-2.0)
[2024-07-08 03:03] LABS: Basophils # 0.1 10^3/uL (0.0-0.1); Basophils % 0.6 %; Eosinophils # 0.1 10^3/uL (0.0-0.8); Eosinophils % 0.6 %; Hematocrit 26.3 % (37-53); Lymphocytes % 9.7 %; Mean Corpuscular HGB Conc 27.4 g/dL (30-55); Mean Corpuscular Hemoglobin 18.2 pg (27-33); Mean Corpuscular Volume 66.4 fl (82-101); Mean Platelet Volume 11.6 fL (7.4-10.4); Monocytes % 10.4 %; Neutrophils # 7.64 10^3/uL (1.8-7.7); Neutrophils % 78.3 %; Nucleated Red Blood Cells # 0.1 /100WBC; Nucleated Red Blood Cells % 0.7 %; Platelet Count 255 10^3/cmm (157-399); Red Blood Count 3.96 10^6/uL (3.85-5.65); White Blood Count 9.77 10^3/uL (3.29-11.43)
[2024-07-08 03:18] LABS: INR 1.66 (0.8-1.2)
[2024-07-08 03:19] LABS: Fibrinogen 428 mg/dL (174-498); Partial Thromboplastin Time 32.5 SECONDS (23.9-36.7)
[2024-07-08 03:22] LABS: D Dimer 0.75 ug/mLFEU (0-0.59)
[2024-07-08 03:26] LABS: LAB Peripheral Smear Sent for Review
[2024-07-08 03:32] LABS: Lactate Dehydrogenase 462 U/L (135-225)
--- NOTE | 2024-07-08 03:42 | ECG_ITS ---
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 Measurements Intervals [place] Rate: 75 P: -6 OR: 188 QRS: -83 QRSD: 231 T: 83 QT: 529 QTc: 591 Interpretive Statements ATRIAL-SENSED VENTRICULAR-PACED COMPLEXES ELECTRONIC VENTRICULAR PACEMAKER PROLONGED QT INTERVAL CRITICAL TEST RESULT Compared to ECG 07/07/2024 17:39:04 Prolonged QT interval now present Electronically Signed On 07-08-2024 10:40:14 CDT by Adelina Harvey M.D. [id number] [id number]
[2024-07-08 03:48] LABS: Alanine Aminotransferase 34 U/L (0-41); Albumin Level 3.6 g/dL (3.5-5.2); Alkaline Phosphatase 148 U/L (40-130); Anion Gap 16.7 (5-19); Aspartate Amino Transferase 54 U/L (0-40); Blood Urea Nitrogen 28 mg/dL (8-23); Calcium 8.8 mg/dL (8.5-10.5); Carbon Dioxide 27 mmol/L (22-29); Chloride 97 mmol/L (98-107); Creatinine Clr Calc Pharmacy 45.1525; Globulin 2.6 g/dL (1.3-4.6); Glucose 116 mg/dL (65-115); Magnesium 2.3 mg/dL (1.7-2.3); Osmolality Calculated 290 mOsm/kg (285-295); Potassium 3.7 mmol/L (3.5-5.1); Sodium 137 mmol/L (136-145); Total Bilirubin 0.8 mg/dL (0.15-1.2); Total Protein 6.2 g/dL (6.6-8.7)
--- NOTE | 2024-07-08 06:30 | ECG_ITS ---
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 Measurements Intervals [place] Rate: 79 P: 5 [place]: 184 QRS: -86 QRSD: 226 T: 82 QT: 502 QTc: 578 Interpretive Statements ELECTRONIC VENTRICULAR PACEMAKER ABNORMAL RHYTHM ECG Compared to ECG 07/08/2024 03:42:07 Prolonged QT interval no longer present Electronically Signed On 07-08-2024 10:39:55 CDT by Adelina Harvey M.D. [id number]
[2024-07-08] MEDS: pantoprazole DR 40 mg Tablet PO ×2 (08:28→16:21)
[2024-07-08] MEDS: clopidogrel 75 mg Tablet PO (08:28)
[2024-07-08] MEDS: metoprolol succinate ER (24 HR) 25 mg Tablet PO ×2 (08:28→16:21)
[2024-07-08] MEDS: atorvastatin 40 mg Tablet PO (08:29)
[2024-07-08] MEDS: potassium chloride ER 20 mEq Tablet PO (08:29)
--- NOTE | 2024-07-08 10:07 | PC.SOCIAL ---
IMM Update Updated pt on IMM. No questions voiced. Provided pt a copy. Initialed, dated, & timed a copy & placed in chart.
--- NOTE | 2024-07-08 11:20 | P.CONIM_ITS ---
<Statement entered by Randall Brewer MD - 07/08/24 19:35> Patient was evaluated and cared for in conjunction with an advanced practice practitioner. I personally examined the patient and reviewed the chart and all pertinent data including imaging, telemetry, and laboratory results. I discussed the patient in detail with the advanced practice practitioner. Please see their note for complete H&P testing result and agreed upon plan of care for the patient. Providers/Reason For Consult 2 Consulting Physician/Specialty*: Randall Brewer MD Reason for Consult*: NSTEMI, CHF exacerbation Requesting Physician: Dr. Varghese Attending Physician: Yesenia Varghese MD Primary Care Provider: Fermin Carlisle MD History of Present Illness History of Present Illness Obdulio Broussard is a 79 year old male with a past medical history of A-fib, severe proximal mid LAD stenosis treated with drug-eluting stent x 2 and balloon angioplasty to diagonal in 2020, hyperlipidemia, cardiomyopathy, carotid stenosis, defibrillator placement in 2020, systolic heart failure, and hypertension presented to the ER department referred by the patient's primary care office due to increased shortness of breath. He states that he can barely do anything without getting winded even taking a shower. He states he has a severe lack of energy. He noticed swelling in his lower extremities. He reports severe orthopnea and lack of sleep due to this. Hemoglobin was low on admission and is currently 7.2. This anemia is fairly new onset. He is in need of a colonoscopy to evaluate this. He is currently being transfused. He denies any recent episodes of chest pain. At home he was taking 80 mg of Lasix twice a day. He has not had adequate response to diuresis at this time. Echo was done that showed EF was 25%, which has increased from previous at 10-15%. Troponins were elevated at 57-60.89-75.96 delta positive. Creatinine was elevated at 1.5. It appears baseline is around 1.3. Pro bnp is elevated at 2369. He is 98% on room air at this time. EKG showed paced rhythm. Review of Systems 2 Narrative: Consitutional: denies fever, chills, reports lethargy Eyes: Denies changes in vision Card: Denies chest pain, palpitations, irregular heart rhythm, reports edema, denies syncope, reports shortness of breath, orthopnea Resp: Reports shortness of breath on exertion, relieved with rest, denies hemoptysis, denies cough GI: denies abdominal pain, denies nausea or voimting, denies blood in stool Musc: Denies extremity pain, denies limited range of motion or recent injury Skin: Denies rash, lesions, or wounds, denies changes to skin color Neuro: Denies numbness in extremities, h/a, s/s of stroke Bird: Denies easy bruiding/bleeding Medications/Allergies Home Medications ?Medication ?Instructions ?Recorded ?Confirmed ?Last Taken ?Type metoprolol succinate 25 mg 25 mg PO BID 10/21/2307/0707/06/24 History tablet,extended release 24 hr potassium chloride 20 mEq 20 meq PO DAILY #90 tabs 12/0707/07/24 07/06/24 Rx tablet,extended release alprazolam 0.5 mg tablet (Xanax) 0.5 mg PO TID PRN Anx iety #90 tabs 05/11/24 07/07/24 07/06/24 Rx nitroglycerin 0.4 mg sublingual See Rx Instructions .R oute 05/11/24 07/07/24 Unknown Rx tablet .COMPLEX #25 ea apixaban 5 mg tablet (Eliquis) 5 mg PO BID 05/18/2407/06/24 History atorvastatin 40 mg tablet 40 mg PO DAILY 05/18/2406/1507/06/24 History clopidogrel 75 mg tablet 75 mg PO DAILY 05/18/2406/1507/06/24 History sacubitril 24 mg-valsartan 26 mg 1 tab PO BID #180 tab s 05/23/24 07/07/24 07/06/24 Rx tablet (Entresto) furosemide 80 mg tablet 80 mg PO BID #60 tabs 07/07/24 07/06/24 Rx Allergies Allergy/AdvReac Type Severity Reaction Status Date / Time amlodipine (From [facility]) Allergy Unknown ADR-Abdominal Verified 07/07/24 11:48 Pain clonidine Allergy Unknown ADR-Abdominal Verified 07/07/24 11:48 Pain doxycycline Allergy Unknown ADR-Abdominal Verified 07/07/24 11:48 Pain hydrochlorothiazide Allergy Unknown ADR-Fatigue Verified 07/07/24 11:48 d lisinopril Allergy Unknown ADR-Fatigue Verified 07/07/24 11:48 d metoprolol Allergy Unknown ADR-Fatigue Verified 07/07/24 11:48 d sulfamethoxazole (From Allergy Unknown ADR-Abdominal Verified 07/07/24 11:48 Bactrim) Pain trimethoprim (From Bactrim) Allergy Unknown ADR-Abdominal Verified 07/07/24 11:48 Pain morphine Allergy ADR-Vomitin Verified 07/07/24 11:48 g aspirin AdvReac Intermediate stomach Verified 05/24/24 10:36 pain/ upset pantoprazole (From Protonix) AdvReac Intermediate upset Verified 05/24/24 10:36 stomach Current Medications Generic Name Dose Route Start Last Admin Trade Name Freq PRN Reason Stop Dose Admin Albuterol/Ipratropium 3 ml 07/07/24 16:17 07/07/24 21:26 Ipratropium-Albuterol 3 Ml Neb INHALATION 3 ml Q6H PRN Administration SHORTNESS OF BREATH Alprazolam 0.5 mg 07/07/24 20:16 07/07/24 21:41 Alprazolam 0.5 Mg Tablet PO 0.5 mg TID PRN Administration Anxiety Atorvastatin Calcium 40 mg 07/08/24 09:00 07/08/24 08:29 Atorvastatin 40 Mg Tablet PO 40 mg DAILY WADE Administration Clopidogrel Bisulfate 75 mg 07/08/24 09:00 07/08/24 08:28 Clopidogrel 75 Mg Tablet PO 75 mg DAILY WADE Administration Furosemide 60 mg 07/07/24 16:30 07/08/24 08:28 Furosemide 10 Mg/Ml Sdv 10ml IVP 60 mg Q8H WADE Administration Iron Sucrose 200 mg/ Sodium 110 mls @ 220 mls/hr 07/07/24 20:00 07/07/24 23:09 Chloride IV 07/11/24 20:29 Infused Q24H WADE Infusion Metoprolol Succinate 25 mg 07/07/24 20:16 07/08/24 08:28 Metoprolol Succinate Er (24 Hr) 25 Mg Tablet PO 25 mg BID WADE Administration Pantoprazole Sodium 40 mg 07/08/24 09:00 07/08/24 08:[address] 40 Mg Tablet PO 40 mg DAILY WADE Administration Potassium Chloride 20 meq 07/08/24 09:00 07/08/24 08:29 Potassium Chloride Er 20 Meq Tablet PO 20 meq DAILY WADE Administration PFSH Acute 2 PFSH: Medical History Atrial fibrillation Wheezing GERD (gastroesophageal reflux disease) Glaucoma CHF (congestive heart failure), NYHA class II Carotid stenosis HTN (hypertension) ASHD (arteriosclerotic heart disease) Hyperlipidemia Cardiomyopathy Surgical History Status post implantation of automatic cardioverter/defibrillator (AICD) H/O esophagogastroduodenoscopy (10/18/20) S/P hemorrhoidectomy History of colonoscopy (~2000) S/P PTCA (percutaneous transluminal coronary angioplasty) Family History Father , AGE 50 CAD (coronary artery disease) Mother , AGE 77 Congestive heart failure (CHF) Social History Smoking and tobacco/nicotine status: never used tobacco/nicotine Second hand smoke exposure: No Alcohol intake: never Substance/Drug Use: never Lives independently: Yes Household members: spouse Marital status: Current occupational status: retired Current gender identity: Male Vitals/I&O/Wt Last Vital Signs Temp 97.7 F 07/08/24 07:50 Pulse 84 07/08/24 08:16 Resp 18 07/08/24 08:16 BP 120/61 07/08/24 07:50 Pulse Ox 100 07/08/24 08:16 O2 Del Method Room Air 07/08/24 08:16 07/07/24 07/08/24 07/08/24 22:59 06:59 14:59 Intake Total 240 / 240 350 / 590 Output Total 0 / 0 300 / 300 200 / 200 Balance 240 / 240 50 / 290 -200 / -200 Weight last 48 hrs Weight 200 lb 9.6 oz Weight 199 lb 11.2 oz Weight 190 lb Physical Exam 2 Narrative: General: No apparent distress, healthy appearing, well nourished HENMT: normoceophalic Muskuloskeletal: Full ROM Respiratory: Normal respiratory effort, congested bilaterally throughout all lung blanco, no use of accessory muscles Cardio: No JVD, regular rate, regular rhythm, S1 S2 normal, no murmurs, peripheral pulses 2+ radial palpated bilaterally GI: Normal to inspection, nondistended Extremities: Full ROM, normal, normal capillary refill, 2+ pitting edema bilateral lower extremities Neuro: Alert and oriented x4, no focal motor deficits Psych: Affect normal, mental status grossly normal Skin: No rashes or lesions noted, no wounds Data 07/08/24 02:38 07/08/24 02:38 Micro: Microbiology 07/07/24 13:51 Blood Culture - Preliminary Blood SPECIMEN COLLECTED 07/07/24 12:50 Blood Culture - Preliminary Blood SPECIMEN COLLECTED A&P Assessment and plan (1) Symptomatic anemia: (2) Acute exacerbation of CHF (congestive heart failure): Qualifiers: Heart failure type: unspecified Qualified Code(s): I50.9 - Heart failure, unspecified (3) HTN (hypertension): Qualifiers: Hypertension type: primary hypertension Qualified Code(s): I10 - Essential (primary) hypertension (4) Cardiomyopathy: Qualifiers: Cardiomyopathy type: ischemic Qualified Code(s): I25.5 - Ischemic cardiomyopathy (5) S/P PTCA (percutaneous transluminal coronary angioplasty): (6) Atrial fibrillation: Qualifiers: Atrial fibrillation type: unspecified Qualified Code(s): I48.91 - Unspecified atrial fibrillation (7) Carotid stenosis: Qualifiers: Laterality: unspecified laterality Qualified Code(s): I65.29 - Occlusion and stenosis of unspecified carotid artery (8) Hyperlipidemia: Qualifiers: Hyperlipidemia type: unspecified Qualified Code(s): E78.5 - Hyperlipidemia, unspecified (9) Anemia: Qualifiers: Anemia type: unspecified type Qualified Code(s): D64.9 - Anemia, unspecified (10) DNR (do not resuscitate): (11) Chronic anticoagulation: Plan At this time, patient is in decompensated systolic heart failure. He is not responding well to just lasix. We will add metolazone 2.5 mg BID. Closely monitor I&O and creatinine. Will hold Plavix at this time due to anemia and prior to scope procedure, as patient's most recent stenting procedure was in 2020 and patient is not having any active chest pain. Once he is euvolemic, can proceed with colonoscopy. This may take over the weekend to completely diurese patient. We will titrate therapy based off of response and kidney function. Continue lasix 60 BID. Thank you, Dr. Varghese, for allowing us to care for this very pleasant gentleman. PDMP PDMP Reviewed: Not Reviewed Coding Level of Care Code Acute Code for Chg Fwd Diagnoses Symptomatic anemia D64.9 Acute exacerbation of CHF (congestive heart failure) I50.9 Heart failure type: unspecified Primary hypertension I10 Hypertension type: primary hypertension Ischemic cardiomyopathy I25.5 Cardiomyopathy type: ischemic S/P PTCA (percutaneous transluminal coronary angioplasty) Z98.61 Atrial fibrillation, unspecified type I48.91 Atrial fibrillation type: unspecified Stenosis of carotid artery, unspecified laterality I65.29 Laterality: unspecified laterality Hyperlipidemia, unspecified hyperlipidemia type E78.5 Hyperlipidemia type: unspecified Anemia D64.9 Anemia type: unspecified type DNR (do not resuscitate) Z66 Chronic anticoagulation Z79.01
--- NOTE | 2024-07-08 11:30 | PC.NURSE ---
Addendum entered by Annette Allen RN 07/08/24 11:39: Instructed patient on blood transfusion to include possible reactions and expectations. Patient verbalized understanding. Family at bedside. Will continue to monitor. Original Note: Consent signed for blood transfusion and placed in chart.
--- NOTE | 2024-07-08 12:19 | P.PN_ITS ---
Subjective 2 Subjective: patient denies cp, says feels slightly better patient refused jennings placement UO 500 cc overnight Hb 7.2 this am labs reviewed Vitals/I&O/Wt Last Vital Signs Temp 97.3 F L 07/08/24 11:36 Pulse 81 07/08/24 11:51 Resp 24 H 07/08/24 11:51 BP 126/68 07/08/24 11:51 Pulse Ox 98 07/08/24 11:51 O2 Del Method Room Air 07/08/24 08:16 07/07/24 07/08/24 07/08/24 22:59 06:59 14:59 Intake Total 240 / 240 350 / 590 0 / 0 Output Total 0 / 0 300 / 300 200 / 200 Balance 240 / 240 50 / 290 -200 / -200 Weight last 48 hrs Weight 90.991 kg Weight 90.582 kg Weight 86.183 kg Physical Exam 2 Narrative: General: Alert oriented x3, patient seen laying in bed, appears deconditioned and tired. No conversational dyspnea no acute distress otherwise. sitting up on edge of bed HEENT: Normocephalic, atraumatic, EOMI, Cardio: Regular rate rhythm, normal S1-S2, Respiratory: Crackles bilaterally at bases. no wheezes or ronchi GI: Abdomen soft, nontender, bowel sounds + Extremities: 3+ pitting edema b/l LE Data 07/08/24 02:38 07/08/24 02:38 Micro: Microbiology 07/07/24 13:51 Blood Culture - Preliminary Blood SPECIMEN COLLECTED 07/07/24 12:50 Blood Culture - Preliminary Blood SPECIMEN COLLECTED A&P Assessment and plan (1) Symptomatic anemia: (2) Acute exacerbation of CHF (congestive heart failure): Qualifiers: Heart failure type: unspecified Qualified Code(s): I50.9 - Heart failure, unspecified (3) HTN (hypertension): Qualifiers: Hypertension type: primary hypertension Qualified Code(s): I10 - Essential (primary) hypertension (4) Cardiomyopathy: Qualifiers: Cardiomyopathy type: ischemic Qualified Code(s): I25.5 - Ischemic cardiomyopathy (5) S/P PTCA (percutaneous transluminal coronary angioplasty): (6) Atrial fibrillation: Qualifiers: Atrial fibrillation type: unspecified Qualified Code(s): I48.91 - Unspecified atrial fibrillation (7) Carotid stenosis: Qualifiers: Laterality: unspecified laterality Qualified Code(s): I65.29 - Occlusion and stenosis of unspecified carotid artery (8) Hyperlipidemia: Qualifiers: Hyperlipidemia type: unspecified Qualified Code(s): E78.5 - Hyperlipidemia, unspecified (9) Anemia: Qualifiers: Anemia type: unspecified type Qualified Code(s): D64.9 - Anemia, unspecified (10) DNR (do not resuscitate): (11) Chronic anticoagulation: Plan #Physical deconditioning, shortness of breath on exertion #Acute symptomatic anemia, most likely iron deficiency #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 Patient takes 80 twice daily Lasix at home however he states his urination has decreased. He is not decompensated heart failure ? Hold Eliquis at this time secondary to anemia. Will continue Plavix ? Continue atorvastatin ? Placed on Lasix 60 IV 3 times daily, potassium 20 daily ? Continue Entresto, will hold if blood pressure soft. ? Hemoglobin 8.1 today. Baseline has been between 10 and 11. 2022 hemoglobin was 15-16. 20 2411.40. Subsequently last few months it has been 9.5 range. On routine labs in office was 7.1. Today 8.1. Check iron studies, iron, TIBC, ferritin. MCV noted to be low 66.4. RDW 18.3. Most likely consistent with iron deficiency anemia. Etiology unknown at this time. Check FOBT. Patient will benefit from colonoscopy. Will consider ordering IV iron. ? Type and screen. Threshold to transfuse for hemoglobin less than 8. Patient's symptoms are most likely secondary to profound anemia with a combination of decompensated CHF. He does endorses orthopnea as well. ? Check echocardiogram ? Continue IV Lasix as noted above. ? Creatinine 1.4 at patient's baseline. ? Check hemoglobin A1c, lactic acid. Await 6-hour troponin. ? First troponin 57, second troponin 60.9. Most likely elevated secondary demand ischemia. ? Patient is not having any chest pain. Shortness of breath on exertion and deconditioning is more likely symptomatic anemia with component of decompensation heart failure. BNP 2300. ? No active evidence or source of bleeding at this time. Denies hematuria, blood in stool. ? Will check urinalysis to rule out hematuria ? Check CT chest abdomen pelvis to rule out other pathology ? Check peripheral smear ? I will hold off on DVT prophylaxis at this time. - Check haptoglobin, D-dimer, DIC profile, direct Son test, LDH, reticulocyte count. DNR/DNI Patient states he would like to be DNR/DNI and does not want any heroic measures. He states his is also aware of this. I did ask him if he wanted to fill out a DNR paperwork however he stated he is not interested in that at this time however is sure that he wants to be a DNR. He understands chest compressions will be performed and we will not put a breathing tube if he stops breathing. Patient states he is okay with this. 07/08/2024 continue IV diuresis cardiology consulted LDH 400, retic count 2.1, son test pending, haptoglobin normal peripheral smear pending hb 7.2 this am order 1 unit prbc pt will need colonoscopy and egd for further workup, will need cardiac clearance ct chest abd pelvis pending for malignancy workup hold off on dvt ppx inr 3.22 this am continue to hold eliquis at this time pt refused jennings continue strict uo continue IV venofer x3 days total., there is evidence of severe iron deficiency anemia PDMP PDMP Reviewed: Not Reviewed Attestations 2 Medical Necessity Statement*: > 2 midnight stay for decompensated CHF, symptomatic anemia Diagnoses Symptomatic anemia D64.9 Acute exacerbation of CHF (congestive heart failure) I50.9 Heart failure type: unspecified Primary hypertension I10 Hypertension type: primary hypertension Ischemic cardiomyopathy I25.5 Cardiomyopathy type: ischemic S/P PTCA (percutaneous transluminal coronary angioplasty) Z98.61 Atrial fibrillation, unspecified type I48.91 Atrial fibrillation type: unspecified Stenosis of carotid artery, unspecified laterality I65.29 Laterality: unspecified laterality Hyperlipidemia, unspecified hyperlipidemia type E78.5 Hyperlipidemia type: unspecified Anemia D64.9 Anemia type: unspecified type DNR (do not resuscitate) Z66 Chronic anticoagulation Z79.01
[2024-07-08] MEDS: ipratropium-albuterol 3 mL Neb INHALATION (13:10)
[2024-07-08] MEDS: metOLazone 5 MG Tablet 2.5 MG PO (16:21)
[2024-07-08] MEDS: iron sucrose 200 MG in sodium chloride 0.9% (100 ml) 100 ML 220 MG IV (17:00)
[2024-07-08] MEDS: sennosides-docusate Tablet 1 TAB PO (17:05)
[2024-07-08] MEDS: benzonatate 100 mg Capsule 200 MG PO (22:39)
[2024-07-08] MEDS: ALPRAZolam 0.5 mg Tablet PO (22:39)
[2024-07-09] VITALS (9 sets, daily range): BP systolic 94–124; BP diastolic 49–76; PULSE 70–86; RESP 17–25; TEMP 36.4–37.1; O2SAT 93–100
--- NOTE | 2024-07-09 01:02 | PC.NURSE ---
This nurse and co-worker walkiong down villaf[place]te to go to another room. Patient came out of room holding onto wall saying I had a nightmare . Patient had to be helped back to room and continued to rip off telemetry and pulse ox. Patient confused and not answering orientation questions appropriately. Patient is also having audible wheezing and diminished lung sounds with O2 at 99%. Dr. Chaudhry notified and recieved orders to try haldol 2mg IV once and retime lasix to 0400 since patient is declining. Patient has also been refusing bipap even after patient education.
[2024-07-09] MEDS: haloperidol inj 5 mg/mL INJ 1 mL 2 MG IVP (01:23)
--- NOTE | 2024-07-09 01:58 | PC.NURSE ---
Patient sitting on side of bed stating This is a horrible dream . Patient has taken off all telemetry and monitoring equipment refusing to wear it. Patient states I need air. Let me . Asked patient again if he would like to try the bipap at this time to help him breath better. Patient refusing nasal cannula and bipap at this time just stating I want my mother but she is . Let me . Sitter placed at bedside. Was able to place telemetry back on patient and patient is sitting in chair drinking water.
--- NOTE | 2024-07-09 02:44 | PC.NURSE ---
This nurse went to give patient a drink. Patient sitting in chair with sitter at bedside. This nurse asked patient orientation questions again. Patient was able to state name, , city, and year correctly but missed month. Patient then asked nurse Where are you at? What city are you in? Patient then said he felt confused and stated If I had a gun I would take care of this confusion . When asked the patient endorses wanting to hurt himself since he says this is no way to live . Dr. Chaudhry notified of patient statements and behavior.
--- NOTE | 2024-07-09 04:45 | PC.NURSE ---
Patient refusing telemetry. Educated patient about importance of wearing telemetry. Patient still refused telemetry, medications, and labs to be drawn. Per patient When my gets here she'll decide. Dr. Chaudhry notified.
[2024-07-09] MEDS: metOLazone 5 MG Tablet 2.5 MG PO ×2 (08:46→17:58)
[2024-07-09] MEDS: metoprolol succinate ER (24 HR) 25 mg Tablet PO ×2 (08:46→17:57)
[2024-07-09] MEDS: pantoprazole DR 40 mg Tablet PO ×2 (08:47→17:58)
[2024-07-09] MEDS: potassium chloride ER 20 mEq Tablet PO (08:47)
[2024-07-09] MEDS: sennosides-docusate Tablet 1 TAB PO (08:47)
[2024-07-09] MEDS: atorvastatin 40 mg Tablet PO (08:47)
--- NOTE | 2024-07-09 09:49 | P.PN_ITS ---
Subjective 2 Subjective: patient more confused overnight refused lasix and bloodwork this AM started a 1 to 1 sitter last night as he had some suicidal thoughts. this AM evaluated patient. worsening pitting edema, wheezing and SOB. states last night he had a bad dream which lead to confusoin. states he remembers refusing blood work and lasix due to being too tired Medications: Reviewed: Yes Vitals/I&O/Wt Last Vital Signs Temp 97.5 F L 07/09/24 08:00 Pulse 74 07/09/24 09:08 Resp 18 07/09/24 09:08 BP 117/60 07/09/24 08:00 Pulse Ox 93 07/09/24 09:08 O2 Del Method Room Air 07/09/24 09:08 O2 Flow Rate 2 07/09/24 00:57 07/08/24 07/09/24 07/09/24 22:59 06:59 14:59 Intake Total 110 / 800 480 / 1280 120 / 120 Output Total 300 / 700 500 / 1200 Balance -190 / 100 -20 / 80 120 / 120 Weight last 48 hrs Weight 200 lb 9.6 oz Weight 199 lb 11.2 oz Weight 190 lb Physical Exam 2 Narrative: General: Alert oriented x3, patient seen laying in bed, appears deconditioned and tired. No conversational dyspnea no acute distress otherwise. sitting up on edge of bed HEENT: Normocephalic, atraumatic, EOMI, Cardio: Regular rate rhythm, normal S1-S2, Respiratory: Crackles bilaterally at bases. bilateral wheezing present GI: Abdomen soft, nontender, bowel sounds + Extremities: 3+ pitting edema b/l LE up to knee, 1+ to waste, Data 07/08/24 02:38 07/08/24 02:38 Micro: Microbiology 07/08/24 16:53 Occult Blood (FIT) - Final Stool Routine Collection 07/07/24 13:51 Blood Culture - Preliminary Blood NEGATIVE TO DATE 07/07/24 12:50 Blood Culture - Preliminary Blood NEGATIVE TO DATE A&P Assessment and plan (1) Symptomatic anemia: (2) Acute exacerbation of CHF (congestive heart failure): Qualifiers: Heart failure type: unspecified Qualified Code(s): I50.9 - Heart failure, unspecified (3) HTN (hypertension): Qualifiers: Hypertension type: primary hypertension Qualified Code(s): I10 - Essential (primary) hypertension (4) Cardiomyopathy: Qualifiers: Cardiomyopathy type: ischemic Qualified Code(s): I25.5 - Ischemic cardiomyopathy (5) S/P PTCA (percutaneous transluminal coronary angioplasty): (6) Atrial fibrillation: Qualifiers: Atrial fibrillation type: unspecified Qualified Code(s): I48.91 - Unspecified atrial fibrillation (7) Carotid stenosis: Qualifiers: Laterality: unspecified laterality Qualified Code(s): I65.29 - Occlusion and stenosis of unspecified carotid artery (8) Hyperlipidemia: Qualifiers: Hyperlipidemia type: unspecified Qualified Code(s): E78.5 - Hyperlipidemia, unspecified (9) Anemia: Qualifiers: Anemia type: unspecified type Qualified Code(s): D64.9 - Anemia, unspecified (10) DNR (do not resuscitate): (11) Chronic anticoagulation: Plan #Physical deconditioning, shortness of breath on exertion #Acute symptomatic anemia, most likely iron deficiency #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 Patient takes 80 twice daily Lasix at home however he states his urination has decreased. He is not decompensated heart failure ? Hold Eliquis at this time secondary to anemia. Will continue Plavix ? Continue atorvastatin ? Placed on Lasix 60 IV 3 times daily, potassium 20 daily ? Continue Entresto, will hold if blood pressure soft. ? Hemoglobin 8.1 today. Baseline has been between 10 and 11. 2022 hemoglobin was 15-16. 20 2411.40. Subsequently last few months it has been 9.5 range. On routine labs in office was 7.1. Today 8.1. Check iron studies, iron, TIBC, ferritin. MCV noted to be low 66.4. RDW 18.3. Most likely consistent with iron deficiency anemia. Etiology unknown at this time. Check FOBT. Patient will benefit from colonoscopy. Will consider ordering IV iron. ? Type and screen. Threshold to transfuse for hemoglobin less than 8. Patient's symptoms are most likely secondary to profound anemia with a combination of decompensated CHF. He does endorses orthopnea as well. ? Check echocardiogram ? Continue IV Lasix as noted above. ? Creatinine 1.4 at patient's baseline. ? Check hemoglobin A1c, lactic acid. Await 6-hour troponin. ? First troponin 57, second troponin 60.9. Most likely elevated secondary demand ischemia. ? Patient is not having any chest pain. Shortness of breath on exertion and deconditioning is more likely symptomatic anemia with component of decompensation heart failure. BNP 2300. ? No active evidence or source of bleeding at this time. Denies hematuria, blood in stool. ? Will check urinalysis to rule out hematuria ? Check CT chest abdomen pelvis to rule out other pathology ? Check peripheral smear ? I will hold off on DVT prophylaxis at this time. - Check haptoglobin, D-dimer, DIC profile, direct Son test, LDH, reticulocyte count. DNR/DNI Patient states he would like to be DNR/DNI and does not want any heroic measures. He states his is also aware of this. I did ask him if he wanted to fill out a DNR paperwork however he stated he is not interested in that at this time however is sure that he wants to be a DNR. He understands chest compressions will be performed and we will not put a breathing tube if he stops breathing. Patient states he is okay with this. 07/08/2024 continue IV diuresis cardiology consulted LDH 400, retic count 2.1, son test pending, haptoglobin normal peripheral smear pending hb 7.2 this am order 1 unit prbc pt will need colonoscopy and egd for further workup, will need cardiac clearance ct chest abd pelvis pending for malignancy workup hold off on dvt ppx inr 3.22 this am continue to hold eliquis at this time pt refused jennings continue strict uo continue IV venofer x3 days total., there is evidence of severe iron deficiency anemia 07/09/24 -received 1u pRBC yesterday. refusing blood work today -continue IV venofer 3/3. severe EVELIO -refusing jennings. continue strict UOP measurements -HOLDING DVT prophylaxis due to possible blood loss anemia but more likely bone marrow possibly. also INR supratherapeutic -sophia lneed colonoscopy and EGD once cleared by cardiac -CT chest -Diuresis vis IV lasix 60mg TID and metolaxone -CT chest/abd/pelvis showing Moderate RIGHT greater than LEFT pleural effusions. Bibasilar atelectasis.. will order new CXR to eval effusions -will give prednisone 40mg x 3 days and duonebs -pt agreeable to lasix and blood work today which he refused earlier PDMP PDMP Reviewed: Not Reviewed Attestations 2 Medical Necessity Statement*: will require 2 overnight stays for anemia and confusion Coding Level of Care Code 61783 Diagnoses Symptomatic anemia D64.9 Acute exacerbation of CHF (congestive heart failure) I50.9 Heart failure type: unspecified Primary hypertension I10 Hypertension type: primary hypertension Ischemic cardiomyopathy I25.5 Cardiomyopathy type: ischemic S/P PTCA (percutaneous transluminal coronary angioplasty) Z98.61 Atrial fibrillation, unspecified type I48.91 Atrial fibrillation type: unspecified Stenosis of carotid artery, unspecified laterality I65.29 Laterality: unspecified laterality Hyperlipidemia, unspecified hyperlipidemia type E78.5 Hyperlipidemia type: unspecified Anemia D64.9 Anemia type: unspecified type DNR (do not resuscitate) Z66 Chronic anticoagulation Z79.01
--- NOTE | 2024-07-09 09:57 | XRR_ITS ---
PROCEDURE INFORMATION: Exam: XR Chest Exam date and time: 07/09/2024 10:00 AM Age: 79 years old Clinical indication: Abnormal findings; Other: Previous pleural effusion; Prior surgery; Surgery date: 6+ months; Surgery type: Pacemaker TECHNIQUE: Imaging protocol: Radiologic exam of the chest. Views: 1 view. COM[place] [id number] 07/08/2024 8:05 AM FINDINGS: Tubes, catheters and devices: Multi lead AICD device is noted on the left. Lungs: There are hazy opacities at both lung bases likely representing small pleural effusions and atelectasis. The upper lungs are clear. Pleural spaces: Suspect small bilateral pleural effusions. No pneumothorax is identified. Heart/Mediastinum: The heart is slightly enlarged. There is calcified plaque involving the aorta. Bones/joints: Unremarkable. XR/XR chest 1V 22808 IMPRESSION: 1. Hazy opacities at both lung bases likely representing small pleural effusions and atelectasis. Findings appear to be slightly worse on today's exam when compared to prior exam.
[2024-07-09] MEDS: FUROsemide 10 mg/mL SDV 10mL 60 MG IVP ×2 (11:28→21:22)
[2024-07-09] MEDS: predniSONE 20 mg Tablet 40 MG PO (11:28)
--- NOTE | 2024-07-09 13:37 | P.PN_ITS ---
Subjective 2 Subjective: This morning patient is breathing better sitting in his bed, unfortunately no credible charting of the inputs and outputs noted, advised patient to let his nurse know regarding how much urination he has done in the urinal Medications: Reviewed: Yes Vitals/I&O/Wt Last Vital Signs Temp 98.7 F 07/09/24 12:00 Pulse 79 07/09/24 12:00 Resp 20 H 07/09/24 12:00 BP 120/63 07/09/24 12:00 Pulse Ox 96 07/09/24 12:00 O2 Del Method Room Air 07/09/24 12:00 O2 Flow Rate 2 07/09/24 00:57 07/08/24 07/09/24 07/09/24 22:59 06:59 14:59 Intake Total 110 / 800 480 / 1280 240 / 240 Output Total 300 / 700 500 / 1200 550 / 550 Balance -190 / 100 -20 / 80 -310 / -310 Weight last 48 hrs Weight 200 lb 9.6 oz Weight 199 lb 11.2 oz Physical Exam 2 Const: OTHER: GENERAL: Patient is alert, awake and oriented x3. HEART: Regular S1 and S2. No murmur, rub or gallop. LUNGS: Clear to auscultate bilaterally. CENTRAL NERVOUS SYSTEM: Grossly nonfocal. EXTREMITIES: Lower extremities with out edema bilaterally. Data 07/08/24 02:38 07/08/24 02:38 Micro: Microbiology 07/08/24 16:53 Occult Blood (FIT) - Final Stool Routine Collection 07/07/24 13:51 Blood Culture - Preliminary Blood NEGATIVE TO DATE 07/07/24 12:50 Blood Culture - Preliminary Blood NEGATIVE TO DATE A&P Assessment and plan (1) Symptomatic anemia: (2) Acute exacerbation of CHF (congestive heart failure): Qualifiers: Heart failure type: unspecified Qualified Code(s): I50.9 - Heart failure, unspecified (3) HTN (hypertension): Qualifiers: Hypertension type: primary hypertension Qualified Code(s): I10 - Essential (primary) hypertension (4) Cardiomyopathy: Qualifiers: Cardiomyopathy type: ischemic Qualified Code(s): I25.5 - Ischemic cardiomyopathy (5) S/P PTCA (percutaneous transluminal coronary angioplasty): (6) Atrial fibrillation: Qualifiers: Atrial fibrillation type: unspecified Qualified Code(s): I48.91 - Unspecified atrial fibrillation (7) Carotid stenosis: Qualifiers: Laterality: unspecified laterality Qualified Code(s): I65.29 - Occlusion and stenosis of unspecified carotid artery (8) Hyperlipidemia: Qualifiers: Hyperlipidemia type: unspecified Qualified Code(s): E78.5 - Hyperlipidemia, unspecified (9) Anemia: Qualifiers: Anemia type: unspecified type Qualified Code(s): D64.9 - Anemia, unspecified (10) DNR (do not resuscitate): (11) Chronic anticoagulation: Plan Will continue IV Lasix 60 3 times daily Will continue metolazone 2.5 mg twice daily Please see note input and output to assess optimization of medicine. Once euvolemic we will clear patient for endoscopic colonoscopy for persistently PDMP PDMP Reviewed: Not Reviewed Attestations 2 Medical Necessity Statement*: Patient require continuation hospitalization for above defined care Coding Level of Care Code Acute Code for Chg Fwd Diagnoses Symptomatic anemia D64.9 Acute exacerbation of CHF (congestive heart failure) I50.9 Heart failure type: unspecified Primary hypertension I10 Hypertension type: primary hypertension Ischemic cardiomyopathy I25.5 Cardiomyopathy type: ischemic S/P PTCA (percutaneous transluminal coronary angioplasty) Z98.61 Atrial fibrillation, unspecified type I48.91 Atrial fibrillation type: unspecified Stenosis of carotid artery, unspecified laterality I65.29 Laterality: unspecified laterality Hyperlipidemia, unspecified hyperlipidemia type E78.5 Hyperlipidemia type: unspecified Anemia D64.9 Anemia type: unspecified type DNR (do not resuscitate) Z66 Chronic anticoagulation Z79.01
[2024-07-09 15:44] LABS: Bilirubin Urine Negative (Negative); Blood Urine Negative (Negative); Glucose Urine UA Negative (Normal); Ketones Urine Negative (Negative); Leukocyte Esterase Urine Negative (Negative); Nitrate Urine Negative (Negative); Protein Urine Negative (Negative); Specific Gravity, Urine 1.006 (1.005-1.030); Urine Appearance Clear (CLEAR); Urine Color Yellow (Yellow); Urobilinogen Urine 0.2 mg/dL (Negative); pH Urine 5.5 (5-7)
[2024-07-09 15:49] LABS: Bacteria Urine None Seen /hpf; Hyaline Casts Urine 2.05 /lpf; RBC Urine 0-2 /hpf (0-2); Squamous Epithelial Cell Urine 0-5 /hpf (0-5); WBC Urine 0-5 /hpf (0-5)
[2024-07-09] MEDS: iron sucrose 200 MG in sodium chloride 0.9% (100 ml) 100 ML 220 MG IV (17:27)
[2024-07-09 20:39] LABS: Basophils % 0.2 %; Hematocrit 31.7 % (37-53); Lymphocytes # 0.7 10^3/uL (0.8-4.8); Lymphocytes % 6.2 %; Mean Corpuscular HGB Conc 28.4 g/dL (30-55); Mean Corpuscular Hemoglobin 19.4 pg (27-33); Mean Corpuscular Volume 68.5 fl (82-101); Monocytes # 0.3 10^3/uL (0.2-0.9); Monocytes % 2.5 %; Neutrophils # 9.97 10^3/uL (1.8-7.7); Neutrophils % 90.2 %; Nucleated Red Blood Cells # 0.2 /100WBC; Nucleated Red Blood Cells % 1.5 %; Platelet Count 242 10^3/cmm (157-399); Red Blood Count 4.63 10^6/uL (3.85-5.65); Red Cell Distribution Width 21.4 % (12.1-15.1); White Blood Count 11.06 10^3/uL (3.29-11.43)
[2024-07-09 20:51] LABS: INR 1.27 (0.8-1.2)
[2024-07-09 20:57] LABS: Alanine Aminotransferase 45 U/L (0-41); Albumin Level 3.7 g/dL (3.5-5.2); Alkaline Phosphatase 145 U/L (40-130); Aspartate Amino Transferase 52 U/L (0-40); Blood Urea Nitrogen 36 mg/dL (8-23); Calcium 9.2 mg/dL (8.5-10.5); Carbon Dioxide 27 mmol/L (22-29); Chloride 92 mmol/L (98-107); Creatinine Clr Calc Pharmacy 42.4185; Globulin 3.2 g/dL (1.3-4.6); Glucose 142 mg/dL (65-115); Osmolality Calculated 287 mOsm/kg (285-295); Sodium 133 mmol/L (136-145); Total Bilirubin 0.9 mg/dL (0.15-1.2); Total Protein 6.9 g/dL (6.6-8.7)
[2024-07-09] MEDS: fluticasone nasal spray 16gm Btl 2 SPRAY NASAL (21:21)
[2024-07-09] MEDS: ALPRAZolam 0.5 mg Tablet PO (22:42)
[2024-07-10] VITALS (8 sets, daily range): BP systolic 104–128; BP diastolic 55–75; PULSE 81–91; RESP 18–21; TEMP 36.3–36.6; O2SAT 94–98
[2024-07-10] MEDS: FUROsemide 10 mg/mL SDV 10mL 60 MG IVP ×3 (03:10→20:16)
[2024-07-10 05:06] LABS: Basophils % 0.1 %; Hematocrit 31.8 % (37-53); Lymphocytes # 0.9 10^3/uL (0.8-4.8); Lymphocytes % 6.2 %; Mean Corpuscular HGB Conc 28.3 g/dL (30-55); Mean Corpuscular Hemoglobin 19.6 pg (27-33); Mean Corpuscular Volume 69.1 fl (82-101); Neutrophils # 11.82 10^3/uL (1.8-7.7); Neutrophils % 85.6 %; Nucleated Red Blood Cells # 0.2 /100WBC; Nucleated Red Blood Cells % 1.1 %; Platelet Count 222 10^3/cmm (157-399); Red Cell Distribution Width 21.8 % (12.1-15.1); White Blood Count 13.81 10^3/uL (3.29-11.43)
[2024-07-10 05:21] LABS: INR 1.21 (0.8-1.2)
[2024-07-10 05:23] LABS: Alanine Aminotransferase 44 U/L (0-41); Albumin Level 3.5 g/dL (3.5-5.2); Alkaline Phosphatase 142 U/L (40-130); Anion Gap 16.8 (5-19); Aspartate Amino Transferase 48 U/L (0-40); Blood Urea Nitrogen 37 mg/dL (8-23); Calcium 9.3 mg/dL (8.5-10.5); Carbon Dioxide 31 mmol/L (22-29); Chloride 90 mmol/L (98-107); Creatinine Clr Calc Pharmacy 39.9233; Globulin 3.3 g/dL (1.3-4.6); Glucose 119 mg/dL (65-115); Osmolality Calculated 290 mOsm/kg (285-295); Sodium 135 mmol/L (136-145); Total Bilirubin 0.9 mg/dL (0.15-1.2); Total Protein 6.8 g/dL (6.6-8.7)
[2024-07-10 05:32] LABS: Potassium 2.8 mmol/L (3.5-5.1)
[2024-07-10] MEDS: potassium chloride ER 20 mEq Tablet 40 MEQ PO ×3 (05:55→17:11)
--- NOTE | 2024-07-10 07:09 | P.PN_ITS ---
Subjective 2 Subjective: no events overnight constipation but had a hard BM this AM was compliant with bloodwork and lasix this AM. 2L UOP overnight Medications: Reviewed: Yes Vitals/I&O/Wt Last Vital Signs Temp 97.5 F L 07/10/24 03:17 Pulse 91 07/10/24 06:00 Resp 18 07/09/24 23:16 BP 104/55 07/10/24 03:17 Pulse Ox 94 07/10/24 03:17 O2 Del Method Nasal Cannula 07/10/24 03:17 O2 Flow Rate 2 07/10/24 03:17 07/09/24 07/10/24 07/10/24 22:59 06:59 14:59 Intake Total 350 / 590 Output Total 850 / 1400 2075 / 3475 Balance -500 / -810 -2075 / -2885 Weight last 48 hrs Weight 197 lb 4.8 oz Physical Exam 2 Narrative: General: Alert oriented x3, patient seen laying in bed, appears deconditioned and tired. HEENT: Normocephalic, atraumatic, EOMI, Cardio: Regular rate rhythm, normal S1-S2, Respiratory: Crackles bilaterally at bases. bilateral wheezing present GI: Abdomen soft, nontender, bowel sounds + Extremities: 2+ pitting edema b/l LE up to knee, 1+ to waste, Data 07/10/24 04:45 07/10/24 04:45 A&P Assessment and plan (1) Symptomatic anemia: (2) Acute exacerbation of CHF (congestive heart failure): Qualifiers: Heart failure type: unspecified Qualified Code(s): I50.9 - Heart failure, unspecified (3) HTN (hypertension): Qualifiers: Hypertension type: primary hypertension Qualified Code(s): I10 - Essential (primary) hypertension (4) Cardiomyopathy: Qualifiers: Cardiomyopathy type: ischemic Qualified Code(s): I25.5 - Ischemic cardiomyopathy (5) S/P PTCA (percutaneous transluminal coronary angioplasty): (6) Atrial fibrillation: Qualifiers: Atrial fibrillation type: unspecified Qualified Code(s): I48.91 - Unspecified atrial fibrillation (7) Carotid stenosis: Qualifiers: Laterality: unspecified laterality Qualified Code(s): I65.29 - Occlusion and stenosis of unspecified carotid artery (8) Hyperlipidemia: Qualifiers: Hyperlipidemia type: unspecified Qualified Code(s): E78.5 - Hyperlipidemia, unspecified (9) Anemia: Qualifiers: Anemia type: unspecified type Qualified Code(s): D64.9 - Anemia, unspecified (10) DNR (do not resuscitate): (11) Chronic anticoagulation: Plan #Physical deconditioning, shortness of breath on exertion #Acute symptomatic anemia, most likely iron deficiency #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 Patient takes 80 twice daily Lasix at home however he states his urination has decreased. He is not decompensated heart failure ? Hold Eliquis at this time secondary to anemia. Will continue Plavix ? Continue atorvastatin ? Placed on Lasix 60 IV 3 times daily, potassium 20 daily ? Continue Entresto, will hold if blood pressure soft. ? Hemoglobin 8.1 today. Baseline has been between 10 and 11. 2022 hemoglobin was 15-16. 20 2411.40. Subsequently last few months it has been 9.5 range. On routine labs in office was 7.1. Today 8.1. Check iron studies, iron, TIBC, ferritin. MCV noted to be low 66.4. RDW 18.3. Most likely consistent with iron deficiency anemia. Etiology unknown at this time. Check FOBT. Patient will benefit from colonoscopy. Will consider ordering IV iron. ? Type and screen. Threshold to transfuse for hemoglobin less than 8. Patient's symptoms are most likely secondary to profound anemia with a combination of decompensated CHF. He does endorses orthopnea as well. ? Check echocardiogram ? Continue IV Lasix as noted above. ? Creatinine 1.4 at patient's baseline. ? Check hemoglobin A1c, lactic acid. Await 6-hour troponin. ? First troponin 57, second troponin 60.9. Most likely elevated secondary demand ischemia. ? Patient is not having any chest pain. Shortness of breath on exertion and deconditioning is more likely symptomatic anemia with component of decompensation heart failure. BNP 2300. ? No active evidence or source of bleeding at this time. Denies hematuria, blood in stool. ? Will check urinalysis to rule out hematuria ? Check CT chest abdomen pelvis to rule out other pathology ? Check peripheral smear ? I will hold off on DVT prophylaxis at this time. - Check haptoglobin, D-dimer, DIC profile, direct Son test, LDH, reticulocyte count. DNR/DNI Patient states he would like to be DNR/DNI and does not want any heroic measures. He states his is also aware of this. I did ask him if he wanted to fill out a DNR paperwork however he stated he is not interested in that at this time however is sure that he wants to be a DNR. He understands chest compressions will be performed and we will not put a breathing tube if he stops breathing. Patient states he is okay with this. 07/08/2024 continue IV diuresis cardiology consulted LDH 400, retic count 2.1, son test pending, haptoglobin normal peripheral smear pending hb 7.2 this am order 1 unit prbc pt will need colonoscopy and egd for further workup, will need cardiac clearance ct chest abd pelvis pending for malignancy workup hold off on dvt ppx inr 3.22 this am continue to hold eliquis at this time pt refused jennings continue strict uo continue IV venofer x3 days total., there is evidence of severe iron deficiency anemia 07/09/24 -received 1u pRBC yesterday. refusing blood work today -continue IV venofer 3/3. severe EVELIO -refusing jennings. continue strict UOP measurements -HOLDING DVT prophylaxis due to possible blood loss anemia but more likely bone marrow possibly. also INR supratherapeutic -sophia lneed colonoscopy and EGD once cleared by cardiac -CT chest -Diuresis vis IV lasix 60mg TID and metolaxone -CT chest/abd/pelvis showing Moderate RIGHT greater than LEFT pleural effusions. Bibasilar atelectasis.. will order new CXR to eval effusions -will give prednisone 40mg x 3 days and duonebs -pt agreeable to lasix and blood work today which he refused earlier 07/10/24 -followed by cardiology -lasix increased to IV 60mg TID, metolazone 2.5mg BID -increased KCL to 40meq BID -improved UOP, refusing jennings -small pleural effusion visible on CXR 07/09, will attain new one on 07/11 -once euvolemic, we will consider colonoscopy/EGD to eval for cause of EVELIO. h/h stable -prednisone day 2/3 with duonebs -constipation: miralax, ennema. will likely add lactulose PDMP PDMP Reviewed: Not Reviewed Attestations 2 Medical Necessity Statement*: Patient require continuation hospitalization for above defined care Coding Level of Care Code 50840 Diagnoses Symptomatic anemia D64.9 Acute exacerbation of CHF (congestive heart failure) I50.9 Heart failure type: unspecified Primary hypertension I10 Hypertension type: primary hypertension Ischemic cardiomyopathy I25.5 Cardiomyopathy type: ischemic S/P PTCA (percutaneous transluminal coronary angioplasty) Z98.61 Atrial fibrillation, unspecified type I48.91 Atrial fibrillation type: unspecified Stenosis of carotid artery, unspecified laterality I65.29 Laterality: unspecified laterality Hyperlipidemia, unspecified hyperlipidemia type E78.5 Hyperlipidemia type: unspecified Anemia D64.9 Anemia type: unspecified type DNR (do not resuscitate) Z66 Chronic anticoagulation Z79.01
[2024-07-10] MEDS: predniSONE 20 mg Tablet 40 MG PO (08:42)
[2024-07-10] MEDS: metOLazone 5 MG Tablet 2.5 MG PO ×2 (08:42→17:10)
[2024-07-10] MEDS: pantoprazole DR 40 mg Tablet PO (08:43)
[2024-07-10] MEDS: metoprolol succinate ER (24 HR) 25 mg Tablet PO ×2 (08:44→17:11)
[2024-07-10] MEDS: atorvastatin 40 mg Tablet PO (08:44)
[2024-07-10] MEDS: polyethylene glycol 3350 Pkt 17 gm 34 GM PO (09:04)
[2024-07-10] MEDS: bisacodyl 10 mg Supp PR (09:04)
[2024-07-10] MEDS: fluticasone nasal spray 16gm Btl 2 SPRAY NASAL (13:00)
--- NOTE | 2024-07-10 15:15 | P.PN_ITS ---
Subjective 2 Subjective: Patient had good bowel movement this morning He says he feeling better and leg swelling has improved except right lower foot has more swelling Medications: Reviewed: Yes Vitals/I&O/Wt Last Vital Signs Temp 97.8 F 07/10/24 12:00 Pulse 85 07/10/24 12:00 Resp 20 H 07/10/24 12:00 BP 118/63 07/10/24 12:00 Pulse Ox 98 07/10/24 12:00 O2 Del Method Room Air 07/10/24 12:00 O2 Flow Rate 2 07/10/24 03:17 07/10/24 07/10/24 07/10/24 06:59 14:59 22:59 Intake Total 480 / 480 Output Total 2075 / 3475 Balance -2075 / -2885 480 / 480 Weight last 48 hrs Weight 197 lb 4.8 oz Physical Exam 2 Const: OTHER: GENERAL: Patient is alert, awake and oriented x3. HEART: Regular S1 and S2. No murmur, rub or gallop. LUNGS: Clear to auscultate bilaterally. CENTRAL NERVOUS SYSTEM: Grossly nonfocal. EXTREMITIES: Lower extremities with out edema bilaterally. Data 07/10/24 04:45 07/10/24 04:45 A&P Assessment and plan (1) Symptomatic anemia: (2) Acute exacerbation of CHF (congestive heart failure): Qualifiers: Heart failure type: unspecified Qualified Code(s): I50.9 - Heart failure, unspecified (3) HTN (hypertension): Qualifiers: Hypertension type: primary hypertension Qualified Code(s): I10 - Essential (primary) hypertension (4) Cardiomyopathy: Qualifiers: Cardiomyopathy type: ischemic Qualified Code(s): I25.5 - Ischemic cardiomyopathy (5) S/P PTCA (percutaneous transluminal coronary angioplasty): (6) Atrial fibrillation: Qualifiers: Atrial fibrillation type: unspecified Qualified Code(s): I48.91 - Unspecified atrial fibrillation (7) Carotid stenosis: Qualifiers: Laterality: unspecified laterality Qualified Code(s): I65.29 - Occlusion and stenosis of unspecified carotid artery (8) Hyperlipidemia: Qualifiers: Hyperlipidemia type: unspecified Qualified Code(s): E78.5 - Hyperlipidemia, unspecified (9) Anemia: Qualifiers: Anemia type: unspecified type Qualified Code(s): D64.9 - Anemia, unspecified (10) DNR (do not resuscitate): (11) Chronic anticoagulation: Plan Will still continue IV 60 mg Lasix 3 times daily along with metolazone 2.5 mg twice daily for at least 1 more day Patient potassium has been replenished this morning we will continue to monitor We will plan for optimization of heart failure meds once euvolemic PDMP PDMP Reviewed: Not Reviewed Attestations 2 Medical Necessity Statement*: Patient require continued hospitalization for above defined care Coding Level of Care Code Acute Code for Chg Fwd Diagnoses Symptomatic anemia D64.9 Acute exacerbation of CHF (congestive heart failure) I50.9 Heart failure type: unspecified Primary hypertension I10 Hypertension type: primary hypertension Ischemic cardiomyopathy I25.5 Cardiomyopathy type: ischemic S/P PTCA (percutaneous transluminal coronary angioplasty) Z98.61 Atrial fibrillation, unspecified type I48.91 Atrial fibrillation type: unspecified Stenosis of carotid artery, unspecified laterality I65.29 Laterality: unspecified laterality Hyperlipidemia, unspecified hyperlipidemia type E78.5 Hyperlipidemia type: unspecified Anemia D64.9 Anemia type: unspecified type DNR (do not resuscitate) Z66 Chronic anticoagulation Z79.01
[2024-07-10] MEDS: famotidine 20 mg Tablet 10 MG PO (17:30)
[2024-07-10] MEDS: ALPRAZolam 0.5 mg Tablet PO (20:17)
[2024-07-11] VITALS (7 sets, daily range): BP systolic 95–128; BP diastolic 47–74; PULSE 73–87; RESP 14–19; TEMP 36.3–36.6; O2SAT 95–97
[2024-07-11] MEDS: FUROsemide 10 mg/mL SDV 10mL 60 MG IVP (04:59)
--- NOTE | 2024-07-11 05:49 | P.PN_ITS ---
Subjective 2 Subjective: 79M With past medical history of carotid stenosis, CHF, hypertension, hyperlipidemia, GERD, atrial fibrillation, coronary artery disease status post PCI, ICD placement admitted on 07/07 with generalized weakness, anasarca and progressive dyspnea on exertion. He was evelauted by his PCP and was found to be anemic and hypervolemic, therefore sent to the ER. Echo was done that showed EF was 25%, which has increased from previous at 10-15%. Troponins were elevated at 57-60.89-75.96 delta positive. Creatinine was elevated at 1.5. He is on siuresis with iv lasix and metolazone for acute on chronic CHF exacerbation. For anemia, he received blood transfusion on 07/09. Also on iv iron. CT CAP was negative for obvious malignancy but showed B/L Pleural effusions. FOBT + Hb stable at 9.0. Cr worsening at 1.7 today, good urine output at 3300 cc. Reducing lasix to 60mg po q12h today Medications: Reviewed: Yes Vitals/I&O/Wt Last Vital Signs Temp 97.7 F 07/11/24 04:00 Pulse 73 07/11/24 04:00 Resp 16 07/11/24 04:00 BP 104/55 07/11/24 04:00 Pulse Ox 95 07/10/24 20:00 O2 Del Method Room Air 07/10/24 20:00 O2 Flow Rate 2 07/10/24 03:17 07/10/24 07/10/24 07/11/24 14:59 22:59 06:59 Intake Total 480 / 480 240 / 720 Output Total 1700 / 1700 1050 / 2750 Balance 480 / 480 -1460 / -980 -1050 / -2030 Weight last 48 hrs Weight 83.007 kg Weight 89.494 kg Physical Exam 2 Narrative: General: No acute distress, AO x3 HEENT: PERRLA, pupils bilaterally equal and reactive, pallors not present Chest: Normal vesicular breath sounds, no added sounds, equal good air entry bilaterally CVS: S1-S2 regular, no murmurs, no tachycardia, no gallops, no rubs Abdomen: Soft, nontender, no organomegaly, bowel sounds present Neuro: No focal deficits, no facial deformity, AO x3, power 5/5 in all limbs Data 07/11/24 07:13 07/11/24 07:13 A&P Assessment and plan (1) Symptomatic anemia: (2) Acute exacerbation of CHF (congestive heart failure): Qualifiers: Heart failure type: unspecified Qualified Code(s): I50.9 - Heart failure, unspecified (3) HTN (hypertension): Qualifiers: Hypertension type: primary hypertension Qualified Code(s): I10 - Essential (primary) hypertension (4) Cardiomyopathy: Qualifiers: Cardiomyopathy type: ischemic Qualified Code(s): I25.5 - Ischemic cardiomyopathy (5) S/P PTCA (percutaneous transluminal coronary angioplasty): (6) Atrial fibrillation: Qualifiers: Atrial fibrillation type: unspecified Qualified Code(s): I48.91 - Unspecified atrial fibrillation (7) Carotid stenosis: Qualifiers: Laterality: unspecified laterality Qualified Code(s): I65.29 - Occlusion and stenosis of unspecified carotid artery (8) Hyperlipidemia: Qualifiers: Hyperlipidemia type: unspecified Qualified Code(s): E78.5 - Hyperlipidemia, unspecified (9) Anemia: Qualifiers: Anemia type: unspecified type Qualified Code(s): D64.9 - Anemia, unspecified (10) DNR (do not resuscitate): (11) Chronic anticoagulation: Plan #Physical deconditioning, shortness of breath on exertion #Acute symptomatic anemia, most likely iron deficiency #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 Patient takes 80 twice daily Lasix at home however he states his urination has decreased. He is not decompensated heart failure ? Hold Eliquis at this time secondary to anemia. Will continue Plavix ? Continue atorvastatin ? Placed on Lasix 60 IV 3 times daily, potassium 20 daily ? Continue Entresto, will hold if blood pressure soft. ? Hemoglobin 8.1 today. Baseline has been between 10 and 11. 2022 hemoglobin was 15-16. 20 2411.40. Subsequently last few months it has been 9.5 range. On routine labs in office was 7.1. Today 8.1. Check iron studies, iron, TIBC, ferritin. MCV noted to be low 66.4. RDW 18.3. Most likely consistent with iron deficiency anemia. Etiology unknown at this time. Check FOBT. Patient will benefit from colonoscopy. Will consider ordering IV iron. ? Type and screen. Threshold to transfuse for hemoglobin less than 8. Patient's symptoms are most likely secondary to profound anemia with a combination of decompensated CHF. He does endorses orthopnea as well. ? Check echocardiogram ? Continue IV Lasix as noted above. ? Creatinine 1.4 at patient's baseline. ? Check hemoglobin A1c, lactic acid. Await 6-hour troponin. ? First troponin 57, second troponin 60.9. Most likely elevated secondary demand ischemia. ? Patient is not having any chest pain. Shortness of breath on exertion and deconditioning is more likely symptomatic anemia with component of decompensation heart failure. BNP 2300. ? No active evidence or source of bleeding at this time. Denies hematuria, blood in stool. ? Will check urinalysis to rule out hematuria ? Check CT chest abdomen pelvis to rule out other pathology ? Check peripheral smear ? I will hold off on DVT prophylaxis at this time. - Check haptoglobin, D-dimer, DIC profile, direct Son test, LDH, reticulocyte count. DNR/DNI Patient states he would like to be DNR/DNI and does not want any heroic measures. He states his is also aware of this. I did ask him if he wanted to fill out a DNR paperwork however he stated he is not interested in that at this time however is sure that he wants to be a DNR. He understands chest compressions will be performed and we will not put a breathing tube if he stops breathing. Patient states he is okay with this. 07/08/2024 continue IV diuresis cardiology consulted LDH 400, retic count 2.1, son test pending, haptoglobin normal peripheral smear pending hb 7.2 this am order 1 unit prbc pt will need colonoscopy and egd for further workup, will need cardiac clearance ct chest abd pelvis pending for malignancy workup hold off on dvt ppx inr 3.22 this am continue to hold eliquis at this time pt refused jennings continue strict uo continue IV venofer x3 days total., there is evidence of severe iron deficiency anemia 07/09/24 -received 1u pRBC yesterday. refusing blood work today -continue IV venofer 3. severe EVELIO -refusing jennings. continue strict UOP measurements -HOLDING DVT prophylaxis due to possible blood loss anemia but more likely bone marrow possibly. also INR supratherapeutic -sophia lneed colonoscopy and EGD once cleared by cardiac -CT chest -Diuresis vis IV lasix 60mg TID and metolaxone -CT chest/abd/pelvis showing Moderate RIGHT greater than LEFT pleural effusions. Bibasilar atelectasis.. will order new CXR to eval effusions -will give prednisone 40mg x 3 days and duonebs -pt agreeable to lasix and blood work today which he refused earlier 07/10/24 -followed by cardiology -lasix increased to IV 60mg TID, metolazone 2.5mg BID -increased KCL to 40meq BID -improved UOP, refusing jennings -small pleural effusion visible on CXR 07/09, will attain new one on 07/11 -once euvolemic, we will consider colonoscopy/EGD to eval for cause of EVELIO. h/h stable -prednisone day 2/3 with duonebs -constipation: miralax, ennema. will likely add lactulose July 11, 2024 Creatinine is trending up to 1.9 today. Patient is having bouts of coughing when being examined. Will check respiratory viral panel. Also noted to have leukocytosis at 18,000. No fever. Clinically his lower extremity swelling is improving. Suspect currently that leukocytosis and rising creatinine may be related to overdiuresis. Discontinue IV Lasix today. Transition to oral Lasix 60 mg twice daily. Additionally reduce metolazone to 2.5 mg p.o. daily. Patient is net -1900 cc yesterday, overall net negative by 4.4 L since admission Her discussed results of positive FOBT with him. Discussed with him that ideally in a patient on anticoagulation and antiplatelets with noted iron deficiency anemia, and a positive FOBT would be prudent to rule out active sources of GI bleeding which could be further assessed with upper GI endoscopy and colonoscopy. However patient is hesitant to undergo any procedures during the current course of admission. He wishes to know if Eliquis can be discontinued going forward. I will discuss this with cardiology. For now he would like to defer any GI procedures unless he develops active bleeding or continues to have falling hemoglobin. He states he will follow-up with his primary care physician, and if continues to be persistently FOBT positive in a few weeks would consider undergoing endoscopic evaluation. For now we will optimize Protonix to 40 mg twice daily and add Carafate. Patient was planned for thoracentesis, per discussion with radiology this will be performed tomorrow. Continue to hold Plavix. As of now patient's respiratory status is improving, he is currently saturating 95% on room air at rest. PDMP PDMP Reviewed: Not Reviewed Attestations 2 Medical Necessity Statement*: Transition IV to oral diuresis, plan thoracentesis. Coding Level of Care Code Acute Code for Chg Fwd Diagnoses Symptomatic anemia D64.9 Acute exacerbation of CHF (congestive heart failure) I50.9 Heart failure type: unspecified Primary hypertension I10 Hypertension type: primary hypertension Ischemic cardiomyopathy I25.5 Cardiomyopathy type: ischemic S/P PTCA (percutaneous transluminal coronary angioplasty) Z98.61 Atrial fibrillation, unspecified type I48.91 Atrial fibrillation type: unspecified Stenosis of carotid artery, unspecified laterality I65.29 Laterality: unspecified laterality Hyperlipidemia, unspecified hyperlipidemia type E78.5 Hyperlipidemia type: unspecified Anemia D64.9 Anemia type: unspecified type DNR (do not resuscitate) Z66 Chronic anticoagulation Z79.01
[2024-07-11] MEDS: potassium chloride oral liq 20 mEq/15 mL UDC 40 MEQ PO (06:23)
[2024-07-11 07:19] LABS: Basophils % 0.1 %; Hematocrit 36.3 % (37-53); Lymphocytes # 1.3 10^3/uL (0.8-4.8); Lymphocytes % 7.4 %; Mean Corpuscular HGB Conc 27.8 g/dL (30-55); Monocytes # 1.4 10^3/uL (0.2-0.9); Neutrophils # 15.19 10^3/uL (1.8-7.7); Nucleated Red Blood Cells # 0.1 /100WBC; Nucleated Red Blood Cells % 0.4 %; Platelet Count 212 10^3/cmm (157-399); Red Blood Count 5.04 10^6/uL (3.85-5.65); Red Cell Distribution Width 25.1 % (12.1-15.1); White Blood Count 18.07 10^3/uL (3.29-11.43)
[2024-07-11 07:40] LABS: Alanine Aminotransferase 45 U/L (0-41); Albumin Level 3.9 g/dL (3.5-5.2); Alkaline Phosphatase 149 U/L (40-130); Anion Gap 17.6 (5-19); Aspartate Amino Transferase 50 U/L (0-40); Blood Urea Nitrogen 43 mg/dL (8-23); Calcium 9.8 mg/dL (8.5-10.5); Carbon Dioxide 33 mmol/L (22-29); Chloride 91 mmol/L (98-107); Creatinine Clr Calc Pharmacy 34.2735; Globulin 3.4 g/dL (1.3-4.6); Glucose 119 mg/dL (65-115); Osmolality Calculated 298 mOsm/kg (285-295); Potassium 3.6 mmol/L (3.5-5.1); Sodium 138 mmol/L (136-145); Total Bilirubin 1.1 mg/dL (0.15-1.2); Total Protein 7.3 g/dL (6.6-8.7)
[2024-07-11 08:08] LABS: Slide Review Slide Review Perform
[2024-07-11] MEDS: metoprolol succinate ER (24 HR) 25 mg Tablet PO ×2 (08:54→17:46)
[2024-07-11] MEDS: potassium chloride ER 20 mEq Tablet 40 MEQ PO ×2 (08:54→17:46)
[2024-07-11] MEDS: famotidine 20 mg Tablet 10 MG PO ×2 (08:54→17:47)
[2024-07-11] MEDS: predniSONE 20 mg Tablet 40 MG PO (08:54)
[2024-07-11] MEDS: atorvastatin 40 mg Tablet PO (08:55)
[2024-07-11] MEDS: metOLazone 5 MG Tablet 2.5 MG PO (08:55)
[2024-07-11] MEDS: fluticasone nasal spray 16gm Btl 2 SPRAY NASAL (08:55)
--- NOTE | 2024-07-11 12:41 | PC.SOCIAL ---
IMM Update pg 2 of IMM updated and reviewed w/ patient. Copy provided and copy dated, initialed and placed in chart.
--- NOTE | 2024-07-11 15:07 | P.PN_ITS ---
<Statement entered by Randall Brewer MD - 07/11/24 20:16> Patient was evaluated and cared for in conjunction with an advanced practice practitioner. I personally examined the patient and reviewed the chart and all pertinent data including imaging, telemetry, and laboratory results. I discussed the patient in detail with the advanced practice practitioner. Please see their note for complete H&P testing result and agreed upon plan of care for the patient. Continues to improve and feel better he had not had stool today but had good output GENERAL: Patient is alert, awake and oriented x3. HEART: Regular S1 and S2. No murmur, rub or gallop. LUNGS: Decreased breath sound e bilaterally. CENTRAL NERVOUS SYSTEM: Grossly nonfocal. EXTREMITIES: Lower extremities with out edema bilaterally. Acute decompensated systolic heart failure Ischemic cardiomyopathy Severely depressed left ventricular ejection Continue to diurese patient is heading to her right direction Subjective 2 Subjective: Patient doing well today. Denies chest pain or shortness of breath. He is -2-7 oh liters over 24 hours. Creatinine is elevated at 1.9. Right lower extremity has edema on top of the foot but left lower extremity is completely normal. Vitals/I&O/Wt Last Vital Signs Temp 97.7 F 07/11/24 12:00 Pulse 87 07/11/24 12:00 Resp 18 07/11/24 12:00 BP 121/67 07/11/24 12:00 Pulse Ox 97 07/11/24 12:00 O2 Del Method Room Air 07/11/24 12:00 O2 Flow Rate 2 07/10/24 03:17 07/11/24 07/11/24 07/11/24 06:59 14:59 22:59 Intake Total 600 / 600 Output Total 1050 / 2750 Balance -1050 / -2030 600 / 600 Weight last 48 hrs Weight 183 lb Weight 197 lb 4.8 oz Physical Exam 2 Narrative: General: No apparent distress, healthy appearing, well nourished HENMT: normoceophalic Muskuloskeletal: Full ROM Respiratory: Normal respiratory effort, congested bilaterally throughout all lung blanco, no use of accessory muscles Cardio: No JVD, regular rate, regular rhythm, S1 S2 normal, no murmurs, peripheral pulses 2+ radial palpated bilaterally GI: Normal to inspection, nondistended Extremities: Full ROM, normal, normal capillary refill, 1+ edema to the top of the right foot, no edema on the left Neuro: Alert and oriented x4, no focal motor deficits Psych: Affect normal, mental status grossly normal Skin: No rashes or lesions noted, no wounds Data 07/11/24 07:13 07/11/24 07:13 A&P Assessment and plan (1) Symptomatic anemia: (2) Acute exacerbation of CHF (congestive heart failure): Qualifiers: Heart failure type: unspecified Qualified Code(s): I50.9 - Heart failure, unspecified (3) HTN (hypertension): Qualifiers: Hypertension type: primary hypertension Qualified Code(s): I10 - Essential (primary) hypertension (4) Cardiomyopathy: Qualifiers: Cardiomyopathy type: ischemic Qualified Code(s): I25.5 - Ischemic cardiomyopathy (5) S/P PTCA (percutaneous transluminal coronary angioplasty): (6) Atrial fibrillation: Qualifiers: Atrial fibrillation type: unspecified Qualified Code(s): I48.91 - Unspecified atrial fibrillation (7) Carotid stenosis: Qualifiers: Laterality: unspecified laterality Qualified Code(s): I65.29 - Occlusion and stenosis of unspecified carotid artery (8) Hyperlipidemia: Qualifiers: Hyperlipidemia type: unspecified Qualified Code(s): E78.5 - Hyperlipidemia, unspecified (9) Anemia: Qualifiers: Anemia type: unspecified type Qualified Code(s): D64.9 - Anemia, unspecified (10) DNR (do not resuscitate): (11) Chronic anticoagulation: Plan At this time patient appears to be more euvolemic. Due to increasing creatinine we will hold metolazone at this time. Patient's Lasix has been decreased to 60 every 12. We may transition to oral Lasix as patient is progressing appropriately. Continue metoprpolol 25 BID. Patient has had a positive occult Blood. H&H is stable. Plavix on hold for now because of this. Patient does not want a scope to get this evaluated. Will need to discuss appropriate anticoagulation route going forward. PDMP PDMP Reviewed: Not Reviewed Attestations 2 Medical Necessity Statement*: Deferred to primary. Coding Level of Care Code Acute Code for Chg Fwd Diagnoses Symptomatic anemia D64.9 Acute exacerbation of CHF (congestive heart failure) I50.9 Heart failure type: unspecified Primary hypertension I10 Hypertension type: primary hypertension Ischemic cardiomyopathy I25.5 Cardiomyopathy type: ischemic S/P PTCA (percutaneous transluminal coronary angioplasty) Z98.61 Atrial fibrillation, unspecified type I48.91 Atrial fibrillation type: unspecified Stenosis of carotid artery, unspecified laterality I65.29 Laterality: unspecified laterality Hyperlipidemia, unspecified hyperlipidemia type E78.5 Hyperlipidemia type: unspecified Anemia D64.9 Anemia type: unspecified type DNR (do not resuscitate) Z66 Chronic anticoagulation Z79.01
[2024-07-11 15:19] LABS: Adenovirus Not Detected (NOT DETECT); Chlamydia Pneumoniae Not Detected (NOT DETECT); Coronavirus 229E,HKU1,NL63,OC4 Not Detected (NOT DETECT); Human Metapneumovirus Not Detected (NOT DETECT); Human Rhinovirus/Enterovirus Not Detected (NOT DETECT); Influenza A Not Detected (NOT DETECT); Influenza A H1 Not Detected (NOT DETECT); Influenza A H1-2009 Not Detected (NOT DETECT); Influenza A H3 Not Detected (NOT DETECT); Influenza B Not Detected (NOT DETECT); Mycoplasma Pneumoniae Not Detected (NOT DETECT); Parainfluenza Virus Type 1 Not Detected (NOT DETECT); Parainfluenza Virus Type 2 Not Detected (NOT DETECT); Parainfluenza Virus Type 3 Not Detected (NOT DETECT); Parainfluenza Virus Type 4 Not Detected (NOT DETECT); Respiratory Syncytial Virus A Not Detected (NOT DETECT); Respiratory Syncytial Virus B Not Detected (NOT DETECT); SARS-COV-2 Not Detected (NOT DETECT)
[2024-07-11] MEDS: FUROsemide 40 mg Tablet 60 MG PO (17:45)
[2024-07-11] MEDS: ALPRAZolam 0.5 mg Tablet PO (23:33)
[2024-07-12] VITALS (9 sets, daily range): BP systolic 123–131; BP diastolic 69–84; PULSE 74–87; RESP 16–20; TEMP 36.4–36.9; O2SAT 94–98
[2024-07-12 03:12] LABS: Basophils % 0.1 %; Hematocrit 34.1 % (37-53); Lymphocytes # 1.2 10^3/uL (0.8-4.8); Lymphocytes % 7.9 %; Mean Corpuscular HGB Conc 28.4 g/dL (30-55); Mean Corpuscular Hemoglobin 20.6 pg (27-33); Mean Corpuscular Volume 72.4 fl (82-101); Monocytes # 1.3 10^3/uL (0.2-0.9); Monocytes % 8.6 %; Neutrophils # 12.28 10^3/uL (1.8-7.7); Neutrophils % 82.7 %; Nucleated Red Blood Cells % 0.2 %; Platelet Count 181 10^3/cmm (157-399); Red Blood Count 4.71 10^6/uL (3.85-5.65); Red Cell Distribution Width 26.4 % (12.1-15.1); White Blood Count 14.83 10^3/uL (3.29-11.43)
[2024-07-12 03:20] LABS: INR 1.15 (0.8-1.2)
[2024-07-12 03:41] LABS: Alanine Aminotransferase 44 U/L (0-41); Albumin Level 3.6 g/dL (3.5-5.2); Alkaline Phosphatase 133 U/L (40-130); Aspartate Amino Transferase 46 U/L (0-40); Blood Urea Nitrogen 51 mg/dL (8-23); Calcium 9.1 mg/dL (8.5-10.5); Carbon Dioxide 34 mmol/L (22-29); Chloride 90 mmol/L (98-107); Creatinine Clr Calc Pharmacy 34.2735; Globulin 3.3 g/dL (1.3-4.6); Glucose 119 mg/dL (65-115); Osmolality Calculated 297 mOsm/kg (285-295); Sodium 136 mmol/L (136-145); Total Bilirubin 0.8 mg/dL (0.15-1.2); Total Protein 6.9 g/dL (6.6-8.7)
[2024-07-12] MEDS: potassium chloride ER 20 mEq Tablet 40 MEQ PO ×3 (08:38→21:18)
[2024-07-12] MEDS: famotidine 20 mg Tablet 10 MG PO (08:39)
[2024-07-12] MEDS: atorvastatin 40 mg Tablet PO (08:39)
[2024-07-12] MEDS: metoprolol succinate ER (24 HR) 25 mg Tablet PO ×2 (08:39→17:50)
[2024-07-12] MEDS: predniSONE 20 mg Tablet 40 MG PO (08:39)
[2024-07-12] MEDS: FUROsemide 40 mg Tablet 60 MG PO (08:39)
[2024-07-12] MEDS: fluticasone nasal spray 16gm Btl 2 SPRAY NASAL (08:42)
--- NOTE | 2024-07-12 10:19 | P.PN_ITS ---
Subjective 2 Subjective: No new complaints today. Saturating 96% while at rest. States that he felt there was a catch in his breathing this morning but this is now resolved. Thoracentesis is planned for this afternoon. Medications: Reviewed: Yes Vitals/I&O/Wt Last Vital Signs Temp 98.4 F 07/12/24 08:00 Pulse 87 07/12/24 08:00 Resp 20 H 07/12/24 08:00 BP 131/80 07/12/24 08:00 Pulse Ox 96 07/12/24 08:00 O2 Del Method Room Air 07/12/24 08:00 O2 Flow Rate 2 07/10/24 03:17 07/11/24 07/12/24 07/12/24 22:59 06:59 14:59 Intake Total 360 / 960 400 / 400 Output Total 700 / 700 500 / 1200 300 / 300 Balance -340 / 260 -500 / -240 100 / 100 Weight last 48 hrs Weight 82.327 kg Weight 83.007 kg Physical Exam 2 Narrative: General: No acute distress, AO x3 HEENT: PERRLA, pupils bilaterally equal and reactive, pallors not present Chest: Normal vesicular breath sounds, no added sounds, equal good air entry bilaterally CVS: S1-S2 regular, no murmurs, no tachycardia, no gallops, no rubs Abdomen: Soft, nontender, no organomegaly, bowel sounds present Neuro: No focal deficits, no facial deformity, AO x3, power 5/5 in all limbs Data 07/12/24 02:38 07/12/24 02:38 A&P Assessment and plan (1) Symptomatic anemia: (2) Acute exacerbation of CHF (congestive heart failure): Qualifiers: Heart failure type: unspecified Qualified Code(s): I50.9 - Heart failure, unspecified (3) HTN (hypertension): Qualifiers: Hypertension type: primary hypertension Qualified Code(s): I10 - Essential (primary) hypertension (4) Cardiomyopathy: Qualifiers: Cardiomyopathy type: ischemic Qualified Code(s): I25.5 - Ischemic cardiomyopathy (5) S/P PTCA (percutaneous transluminal coronary angioplasty): (6) Atrial fibrillation: Qualifiers: Atrial fibrillation type: unspecified Qualified Code(s): I48.91 - Unspecified atrial fibrillation (7) Carotid stenosis: Qualifiers: Laterality: unspecified laterality Qualified Code(s): I65.29 - Occlusion and stenosis of unspecified carotid artery (8) Hyperlipidemia: Qualifiers: Hyperlipidemia type: unspecified Qualified Code(s): E78.5 - Hyperlipidemia, unspecified (9) Anemia: Qualifiers: Anemia type: unspecified type Qualified Code(s): D64.9 - Anemia, unspecified (10) DNR (do not resuscitate): (11) Chronic anticoagulation: Plan #Physical deconditioning, shortness of breath on exertion #Acute symptomatic anemia, most likely iron deficiency #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 Patient takes 80 twice daily Lasix at home however he states his urination has decreased. He is not decompensated heart failure ? Hold Eliquis at this time secondary to anemia. Will continue Plavix ? Continue atorvastatin ? Placed on Lasix 60 IV 3 times daily, potassium 20 daily ? Continue Entresto, will hold if blood pressure soft. ? Hemoglobin 8.1 today. Baseline has been between 10 and 11. 2022 hemoglobin was 15-16. 20 2411.40. Subsequently last few months it has been 9.5 range. On routine labs in office was 7.1. Today 8.1. Check iron studies, iron, TIBC, ferritin. MCV noted to be low 66.4. RDW 18.3. Most likely consistent with iron deficiency anemia. Etiology unknown at this time. Check FOBT. Patient will benefit from colonoscopy. Will consider ordering IV iron. ? Type and screen. Threshold to transfuse for hemoglobin less than 8. Patient's symptoms are most likely secondary to profound anemia with a combination of decompensated CHF. He does endorses orthopnea as well. ? Check echocardiogram ? Continue IV Lasix as noted above. ? Creatinine 1.4 at patient's baseline. ? Check hemoglobin A1c, lactic acid. Await 6-hour troponin. ? First troponin 57, second troponin 60.9. Most likely elevated secondary demand ischemia. ? Patient is not having any chest pain. Shortness of breath on exertion and deconditioning is more likely symptomatic anemia with component of decompensation heart failure. BNP 2300. ? No active evidence or source of bleeding at this time. Denies hematuria, blood in stool. ? Will check urinalysis to rule out hematuria ? Check CT chest abdomen pelvis to rule out other pathology ? Check peripheral smear ? I will hold off on DVT prophylaxis at this time. - Check haptoglobin, D-dimer, DIC profile, direct Son test, LDH, reticulocyte count. DNR/DNI Patient states he would like to be DNR/DNI and does not want any heroic measures. He states his is also aware of this. I did ask him if he wanted to fill out a DNR paperwork however he stated he is not interested in that at this time however is sure that he wants to be a DNR. He understands chest compressions will be performed and we will not put a breathing tube if he stops breathing. Patient states he is okay with this. 07/08/2024 continue IV diuresis cardiology consulted LDH 400, retic count 2.1, son test pending, haptoglobin normal peripheral smear pending hb 7.2 this am order 1 unit prbc pt will need colonoscopy and egd for further workup, will need cardiac clearance ct chest abd pelvis pending for malignancy workup hold off on dvt ppx inr 3.22 this am continue to hold eliquis at this time pt refused jennings continue strict uo continue IV venofer x3 days total., there is evidence of severe iron deficiency anemia 07/09/24 -received 1u pRBC yesterday. refusing blood work today -continue IV venofer 05/16. severe EVELIO -refusing jennings. continue strict UOP measurements -HOLDING DVT prophylaxis due to possible blood loss anemia but more likely bone marrow possibly. also INR supratherapeutic -sophia lneed colonoscopy and EGD once cleared by cardiac -CT chest -Diuresis vis IV lasix 60mg TID and metolaxone -CT chest/abd/pelvis showing Moderate RIGHT greater than LEFT pleural effusions. Bibasilar atelectasis.. will order new CXR to eval effusions -will give prednisone 40mg x 3 days and duonebs -pt agreeable to lasix and blood work today which he refused earlier 07/10/24 -followed by cardiology -lasix increased to IV 60mg TID, metolazone 2.5mg BID -increased KCL to 40meq BID -improved UOP, refusing jennings -small pleural effusion visible on CXR 07/09, will attain new one on 07/11 -once euvolemic, we will consider colonoscopy/EGD to eval for cause of EVELIO. h/h stable -prednisone day 2/3 with duonebs -constipation: miralax, ennema. will likely add lactulose July 11, 2024 Creatinine is trending up to 1.9 today. Patient is having bouts of coughing when being examined. Will check respiratory viral panel. Also noted to have leukocytosis at 18,000. No fever. Clinically his lower extremity swelling is improving. Suspect currently that leukocytosis and rising creatinine may be related to overdiuresis. Discontinue IV Lasix today. Transition to oral Lasix 60 mg twice daily. Additionally reduce metolazone to 2.5 mg p.o. daily. Patient is net -1900 cc yesterday, overall net negative by 4.4 L since admission Her discussed results of positive FOBT with him. Discussed with him that ideally in a patient on anticoagulation and antiplatelets with noted iron deficiency anemia, and a positive FOBT would be prudent to rule out active sources of GI bleeding which could be further assessed with upper GI endoscopy and colonoscopy. However patient is hesitant to undergo any procedures during the current course of admission. He wishes to know if Eliquis can be discontinued going forward. I will discuss this with cardiology. For now he would like to defer any GI procedures unless he develops active bleeding or continues to have falling hemoglobin. He states he will follow-up with his primary care physician, and if continues to be persistently FOBT positive in a few weeks would consider undergoing endoscopic evaluation. For now we will optimize Protonix to 40 mg twice daily and add Carafate. Patient was planned for thoracentesis, per discussion with radiology this will be performed tomorrow. Continue to hold Plavix. As of now patient's respiratory status is improving, he is currently saturating 95% on room air at rest. July 12, 2024 Creatinine is stable at 1.9 today. Urine output of 1500 cc past 24 hours. Net -500 last 24 hours since transitioning to oral Lasix. Overall net -5.1 L since admission. Respiratory viral panel was negative. Hepatic enzymes are stable. Hemoglobin stable at 9.7. No noted melena. Patient's chart notes allergies to PPI , he has been started on famotidine on this current admission. Will increase the dose to 20 mg twice daily. Discussed with him that alternate PPIs may be given a trial however he is hesitant to add any new medications worried about side effects. Thoracentesis planned for this afternoon. Continue with oral Lasix 60 mg twice daily today. Recheck creatinine with a.m. labs Leukocytosis trending down at 14,000 today. Chest x-ray from July 09 with atelectasis. Patient is afebrile. Urine analysis without any signs of UTI from July 09. In trending past numbers, patient's baseline WBC count appears to vary between 9.1-14,000. Will add empiric levofloxacin today given interim development of cough, cannot exclude developing pneumonia. PDMP PDMP Reviewed: Not Reviewed Attestations 2 Medical Necessity Statement*: Planned thoracentesis today Coding Level of Care Code Acute Code for Chg Fwd Diagnoses Symptomatic anemia D64.9 Acute exacerbation of CHF (congestive heart failure) I50.9 Heart failure type: unspecified Primary hypertension I10 Hypertension type: primary hypertension Ischemic cardiomyopathy I25.5 Cardiomyopathy type: ischemic S/P PTCA (percutaneous transluminal coronary angioplasty) Z98.61 Atrial fibrillation, unspecified type I48.91 Atrial fibrillation type: unspecified Stenosis of carotid artery, unspecified laterality I65.29 Laterality: unspecified laterality Hyperlipidemia, unspecified hyperlipidemia type E78.5 Hyperlipidemia type: unspecified Anemia D64.9 Anemia type: unspecified type DNR (do not resuscitate) Z66 Chronic anticoagulation Z79.01
[2024-07-12] MEDS: levoFLOXacin 750 mg Tablet PO (12:05)
--- NOTE | 2024-07-12 12:41 | US_ITS ---
WS: [id number] INDICATION: Pleural effusion TECHNIQUE: Ultrasound chest FINDINGS: Pleural effusions appear improved since the prior CT 07/08/2024. Insufficient fluid for safe thoracentesis at this time. US/US chest [id number] IMPRESSION: Insufficient fluid for safe thoracentesis at this time.
--- NOTE | 2024-07-12 14:12 | P.PN_ITS ---
<Statement entered by Randall Brewer MD - 07/17/24 11:28> Patient was evaluated and cared for in conjunction with an advanced practice practitioner. I personally examined the patient and reviewed the chart and all pertinent data including imaging, telemetry, and laboratory results. I discussed the patient in detail with the advanced practice practitioner. Please see their note for complete H&P testing result and agreed upon plan of care for the patient. Subjective 2 Subjective: Patient doing well today without complaints. Still has some edema to his lower extremities. -600 over 24 hours. He has been transitioned to oral Lasix at his home dose of 80 twice daily. A discussion was made with the patient about patient being occult blood positive and anemic. At this time it was decided to hold Eliquis and continue Plavix. Vitals/I&O/Wt Last Vital Signs Temp 97.6 F 07/12/24 11:57 Pulse 84 07/12/24 11:57 Resp 20 H 07/12/24 11:57 BP 123/69 07/12/24 11:57 Pulse Ox 98 07/12/24 11:57 O2 Del Method Room Air 07/12/24 11:57 O2 Flow Rate 2 07/10/24 03:17 07/11/24 07/12/24 07/12/24 22:59 06:59 14:59 Intake Total 360 / 960 760 / 760 Output Total 700 / 700 500 / 1200 700 / 700 Balance -340 / 260 -500 / -240 60 / 60 Weight last 48 hrs Weight 181 lb 8 oz Weight 183 lb Physical Exam 2 Narrative: General: No apparent distress, healthy appearing, well nourished HENMT: normoceophalic Muskuloskeletal: Full ROM Respiratory: Normal respiratory effort, congested bilaterally throughout all lung blanco, no use of accessory muscles Cardio: No JVD, regular rate, regular rhythm, S1 S2 normal, no murmurs, peripheral pulses 2+ radial palpated bilaterally GI: Normal to inspection, nondistended Extremities: Full ROM, normal, normal capillary refill, 1+ edema to the top of the right foot, no edema on the left Neuro: Alert and oriented x4, no focal motor deficits Psych: Affect normal, mental status grossly normal Skin: No rashes or lesions noted, no wounds Data 07/12/24 02:38 07/12/24 02:38 Micro: Microbiology 07/07/24 13:51 Blood Culture - Final Blood NO GROWTH AFTER 5 DAYS 07/07/24 12:50 Blood Culture - Final Blood NO GROWTH AFTER 5 DAYS A&P Assessment and plan (1) Symptomatic anemia: (2) Acute exacerbation of CHF (congestive heart failure): Qualifiers: Heart failure type: unspecified Qualified Code(s): I50.9 - Heart failure, unspecified (3) HTN (hypertension): Qualifiers: Hypertension type: primary hypertension Qualified Code(s): I10 - Essential (primary) hypertension (4) Cardiomyopathy: Qualifiers: Cardiomyopathy type: ischemic Qualified Code(s): I25.5 - Ischemic cardiomyopathy (5) S/P PTCA (percutaneous transluminal coronary angioplasty): (6) Atrial fibrillation: Qualifiers: Atrial fibrillation type: unspecified Qualified Code(s): I48.91 - Unspecified atrial fibrillation (7) Carotid stenosis: Qualifiers: Laterality: unspecified laterality Qualified Code(s): I65.29 - Occlusion and stenosis of unspecified carotid artery (8) Hyperlipidemia: Qualifiers: Hyperlipidemia type: unspecified Qualified Code(s): E78.5 - Hyperlipidemia, unspecified (9) Anemia: Qualifiers: Anemia type: unspecified type Qualified Code(s): D64.9 - Anemia, unspecified (10) DNR (do not resuscitate): (11) Chronic anticoagulation: Plan Spoke to patient concerning anticoagulant. At this time we recommend to hold Eliquis due to occult blood positive. He will follow-up on an outpatient with PCP and GI as directed. Once cleared from them may restart Eliquis but at this time we will continue Plavix. Will continue home dose Lasix 80 twice daily and see outpatient response. Possible discharge in 1 to 2 days. PDMP PDMP Reviewed: Not Reviewed Attestations 2 Medical Necessity Statement*: Deferred to primary. Coding Level of Care Code Acute Code for Chg Fwd Diagnoses Symptomatic anemia D64.9 Acute exacerbation of CHF (congestive heart failure) I50.9 Heart failure type: unspecified Primary hypertension I10 Hypertension type: primary hypertension Ischemic cardiomyopathy I25.5 Cardiomyopathy type: ischemic S/P PTCA (percutaneous transluminal coronary angioplasty) Z98.61 Atrial fibrillation, unspecified type I48.91 Atrial fibrillation type: unspecified Stenosis of carotid artery, unspecified laterality I65.29 Laterality: unspecified laterality Hyperlipidemia, unspecified hyperlipidemia type E78.5 Hyperlipidemia type: unspecified Anemia D64.9 Anemia type: unspecified type DNR (do not resuscitate) Z66 Chronic anticoagulation Z79.01
[2024-07-12] MEDS: FUROsemide 40 mg Tablet 80 MG PO (14:58)
[2024-07-12] MEDS: famotidine 20 mg Tablet PO (17:50)
[2024-07-12] MEDS: ALPRAZolam 0.5 mg Tablet PO (22:46)
[2024-07-13] VITALS: BP 113/63; PULSE 75; RESP 14; TEMP 36.5; O2SAT 96
[2024-07-13 04:00] VITALS: BP 120/66; PULSE 76; RESP 20; TEMP 36.6; O2SAT 96
[2024-07-13 05:48] LABS: Basophils % 0.1 %; Hematocrit 37.2 % (37-53); Lymphocytes # 1.2 10^3/uL (0.8-4.8); Lymphocytes % 8.4 %; Mean Corpuscular HGB Conc 28.2 g/dL (30-55); Mean Corpuscular Hemoglobin 20.5 pg (27-33); Mean Corpuscular Volume 72.5 fl (82-101); Monocytes # 1.4 10^3/uL (0.2-0.9); Neutrophils # 11.63 10^3/uL (1.8-7.7); Nucleated Red Blood Cells % 0 %; Platelet Count 167 10^3/cmm (157-399); Red Blood Count 5.13 10^6/uL (3.85-5.65); Red Cell Distribution Width 27.1 % (12.1-15.1); White Blood Count 14.34 10^3/uL (3.29-11.43)
[2024-07-13 06:08] LABS: Slide Review Slide Review Perform
[2024-07-13 06:25] LABS: Alanine Aminotransferase 51 U/L (0-41); Albumin Level 3.6 g/dL (3.5-5.2); Alkaline Phosphatase 133 U/L (40-130); Anion Gap 18.4 (5-19); Aspartate Amino Transferase 49 U/L (0-40); Blood Urea Nitrogen 59 mg/dL (8-23); Calcium 9.5 mg/dL (8.5-10.5); Carbon Dioxide 34 mmol/L (22-29); Chloride 92 mmol/L (98-107); Creatinine Clr Calc Pharmacy 32.1069; Globulin 3.6 g/dL (1.3-4.6); Glucose 121 mg/dL (65-115); Osmolality Calculated 310 mOsm/kg (285-295); Potassium 3.4 mmol/L (3.5-5.1); Sodium 141 mmol/L (136-145); Total Bilirubin 0.8 mg/dL (0.15-1.2); Total Protein 7.2 g/dL (6.6-8.7)
[2024-07-13 07:30] VITALS: BP 122/76; PULSE 81; RESP 21; TEMP 36.6; O2SAT 98
[2024-07-13 08:00] VITALS: PULSE 79; RESP 16
[2024-07-13 08:04] VITALS: PULSE 79; RESP 16; O2SAT 98
[2024-07-13] MEDS: FUROsemide 40 mg Tablet 80 MG PO (08:19)
[2024-07-13] MEDS: metoprolol succinate ER (24 HR) 25 mg Tablet PO (08:19)
[2024-07-13] MEDS: potassium chloride ER 20 mEq Tablet 40 MEQ PO (08:19)
[2024-07-13] MEDS: famotidine 20 mg Tablet PO (08:19)
[2024-07-13] MEDS: atorvastatin 40 mg Tablet PO (08:19)
[2024-07-13] MEDS: fluticasone nasal spray 16gm Btl 2 SPRAY NASAL (08:20)
--- NOTE | 2024-07-13 11:33 | PC.SOCIAL ---
IMM Update pg 2 of IMM Updated and reviewed w/ patient. Copy provided and copy dated, initialed and placed in chart.
[2024-07-13 11:58] VITALS: BP 131/72; PULSE 80; RESP 15; TEMP 36.4; O2SAT 97
--- NOTE | 2024-07-13 12:29 | P.DS_ITS ---
Discharge Providers Date of Admission: 07/07/24 16:37 Date of Discharge: July 13, 2024 Attending Provider at Admission: Yesenia Varghese MD Attending Provider at Discharge: Ivana Santos MD Primary Care Provider: Fermin Carlisle MD Diagnoses at Discharge Discharge Diagnosis (1) Symptomatic anemia: Status: Acute (2) Acute exacerbation of CHF (congestive heart failure): Status: Acute Qualifiers: Heart failure type: unspecified Qualified Code(s): I50.9 - Heart failure, unspecified (3) HTN (hypertension): Status: Acute Qualifiers: Hypertension type: primary hypertension Qualified Code(s): I10 - Essential (primary) hypertension (4) Cardiomyopathy: Status: Acute Qualifiers: Cardiomyopathy type: ischemic Qualified Code(s): I25.5 - Ischemic cardiomyopathy (5) S/P PTCA (percutaneous transluminal coronary angioplasty): Status: Acute (6) Atrial fibrillation: Status: Acute Qualifiers: Atrial fibrillation type: unspecified Qualified Code(s): I48.91 - Unspecified atrial fibrillation (7) Carotid stenosis: Status: Acute Qualifiers: Laterality: unspecified laterality Qualified Code(s): I65.29 - Occlusion and stenosis of unspecified carotid artery (8) Hyperlipidemia: Status: Acute Qualifiers: Hyperlipidemia type: unspecified Qualified Code(s): E78.5 - Hyperlipidemia, unspecified (9) Anemia: Status: Acute Qualifiers: Anemia type: unspecified type Qualified Code(s): D64.9 - Anemia, unspecified (10) DNR (do not resuscitate): Status: Acute (11) Chronic anticoagulation: Status: Acute Reason for Visit Reason for Visit: weakness, swelling lower extremities Hospital Course Hospital Course 79M With past medical history of carotid stenosis, CHF, hypertension, hyperlipidemia, GERD, atrial fibrillation, coronary artery disease status post PCI, ICD placement admitted on 07/07 with generalized weakness, anasarca and pro gressive dyspnea on exertion. He was evaluated by his PCP and was found to be anemic and hypervolemic, therefore sent to the ER. Echo was done that showed EF was 25%, which has increased from previous at 10-15%. Troponins were elevated at 57-60.89-75.96 delta positive. Creatinine was elevated at 1.5 and trended up to plateau at 1.9-2.0. Currently he is making around 2900 cc of urine output. He received IV diuresis with Lasix and oral metolazone during the course of his admission, likely his EDMOND is related to overdiuresis. Entresto has been held at discharge due to EDMOND. Once this resolves he can resume Entresto. At discharge oral Lasix has been continued at 60 mg twice daily. For anemia, he received blood transfusion on 07/09. CT CAP was negative for obvious malignancy but showed B/L Pleural effusions. Thoracentesis was planned but eventually not performed as there was insufficient fluid to safely perform the procedure. FOBT resulted positive +. Endoscopy and colonoscopy was discu ssed with the patient, however he preferred not to undergo any GI procedures for now. Eliquis has been held over the next 2 weeks after discussion with cardiology. He is recommended to undergo a repeat FOBT in 2 weeks with his primary care physician. If persistent positive to reconsider EGD and colonoscopy to be safely able to resume Eliquis. Is recommended to start PPIs twice daily. Chart notes an allergy to Protonix therefore recommended to take [id number] omeprazole twice a day. Repeat creatinine has been ordered for Thursday, patient reports he will get this done at his local [facility] clinic in [place]. Recommended to follow-up with his primary care physician on Thursday for repeat creatinine review and to assess if Entresto can be resumed safely once creatinine is downtrending. Physical Exam Narrative: General: No acute distress, AO x3 HEENT: PERRLA, pupils bilaterally equal and reactive, pallors not present Chest: Normal vesicular breath sounds, no added sounds, equal good air entry bilaterally CVS: S1-S2 regular, no murmurs, no tachycardia, no gallops, no rubs Abdomen: Soft, nontender, no organomegaly, bowel sounds present Neuro: No focal deficits, no facial deformity, AO x3, power 5/5 in all limbs Discharge Data Studies Completed and Pending Completed Studies During Hospitalization Category Date Time Status CT chest abdomen pelvis [[place] [id number] Cat Scan 07/08/24 00:22 Completed ] Routine XR chest 1V [id number] Urgent Exams 07/09/24 09:57 Completed XR chest 1V portable [id number] Stat Exams 07/07/24 12:09 [place] [id number] Routine Ultrasound 07/08/24 00:22 Completed CV. echo complete* [id number] Stat Ultrasound 07/07/24 16:17 Completed [place] chest [id number] Routine Ultrasound 07/12/24 12:41 Completed Pending at discharge Category Date Time Status Fibrinogen Degradation Product Routine Lab 07/08/24 02:59 Received Radiology Impressions Chest/Abdomen/Pelvis CT 07/08/24 00:22 IMPRESSION: 1. Moderate RIGHT greater than LEFT pleural effusions. Bibasilar atelectasis. 2. No acute findings in the noncontrast abdomen or pelvis. 3. Dense abdominal vascular mesenteric calcification. Normal caliber abdominal aorta. Chest X-Ray 07/09/24 09:57 IMPRESSION: 1. Hazy opacities at both lung bases likely representing small pleural effusions and atelectasis. Findings appear to be slightly worse on today's exam when compared to prior exam. Chest Ultrasound 07/12/24 12:41 IMPRESSION: Insufficient fluid for safe thoracentesis at this time. Laboratory Results WBC 14.34 10^3/uL (3.29-11.43) H 07/13/24 03:41 RBC 5.13 10^6/uL (3.85-5.65) 07/13/24 03:41 Hgb 10.50 g/dL (11.27-16.99) L 07/13/24 03:41 Hct 37.2 % (37-53) 07/13/24 03:41 MCV 72.5 fl (82-101) L 07/13/24 03:41 MCH 20.5 pg (27-33) L 07/13/24 03:41 MCHC 28.2 g/dL (30-55) L 07/13/24 03:41 RDW 27.1 % (12.1-15.1) H 07/13/24 03:41 Plt Count 167 10^3/cmm (157-399) 07/13/24 03:41 MPV TNP 07/13/24 03:41 Neut % (Auto) 81.0 % 07/13/24 03:41 Lymph % (Auto) 8.4 % 07/13/24 03:41 [place] % (Auto) 10.0 % 07/13/24 03:41 Eos % (Auto) 0.0 % 07/13/24 03:41 Baso % (Auto) 0.1 % 07/13/24 03:41 Reticulocyte % (Auto) 2.1 % (0.5-2.0) H 07/08/24 02:38 Neut # (Auto) 11.63 10^3/uL (1.8-7.7) H 07/13/24 03:41 Lymph # (Auto) 1.2 10^3/uL (0.8-4.8) 07/13/24 03:41 [place] # (Auto) 1.4 10^3/uL (0.2-0.9) H 07/13/24 03:41 Eos # (Auto) 0.0 10^3/uL (0.0-0.8) 07/13/24 03:41 Baso # (Auto) 0.0 10^3/uL (0.0-0.1) 07/13/24 03:41 Nucleated RBC % (auto) 0 % 07/13/24 03:41 Nucleated RBCs # 0.0 /100WBC 07/13/24 03:41 Peripher Smr Path Cons Sent for review 07/08/24 02:38 Haptoglobin 167.0 mg/L (30-200) 07/08/24 02:38 PT 15.50 SECONDS (12.1-14.9) H 07/12/24 02:38 INR 1.15 (0.8-1.2) 07/12/24 02:38 APTT 32.5 SECONDS (23.9-36.7) 07/08/24 02:38 Fibrinogen 428 mg/dL (174-498) 07/08/24 02:38 D-Dimer 0.75 ug/mLFEU (0-0.59) H 07/08/24 02:38 Sodium 141 mmol/L (136-145) 07/13/24 03:41 Potassium 3.4 mmol/L (3.5-5.1) L 07/13/24 03:41 Chloride 92 mmol/L (98-107) L 07/13/24 03:41 Carbon Dioxide 34 mmol/L (22-29) H 07/13/24 03:41 Anion Gap 18.4 (5-19) 07/13/24 03:41 BUN 59 mg/dL (8-23) H 07/13/24 03:41 Creatinine 2.0 mg/dL (0.7-1.2) H 07/13/24 03:41 GFR Calculation Not Reportable 07/13/24 03:41 Glucose 121 mg/dL (65-115) H 07/13/24 03:41 Estimat Average Glucose 103 07/07/24 15:39 Hemoglobin A1c 5.2 % (4.0-6.0) 07/07/24 15:39 Calculated Osmolality 310 mOsm/kg (285-295) H 07/13/24 03:41 Lactic Acid Cancelled 07/07/24 16:17 Lactic Acid (Sepsis) 2.1 mmol/L (0.5-2.2) 07/07/24 15:39 Calcium 9.5 mg/dL (8.5-10.5) 07/13/24 03:41 Magnesium 2.0 mg/dL (1.7-2.3) 07/09/24 20:25 Iron 14 ug/dL (59-158) L 07/07/24 15:39 TIBC 344 mcg/dl 07/07/24 15:39 % Saturation 4.0 % (20-50) L 07/07/24 15:39 Unsat Iron Binding 330 ug/dL (112-347) 07/07/24 15:39 Ferritin 20 ng/mL (30-400) L 07/07/24 15:39 Total Bilirubin 0.8 mg/dL (0.15-1.2) 07/13/24 03:41 AST 49 U/L (0-40) H 07/13/24 03:41 ALT 51 U/L (0-41) H 07/13/24 03:41 Alkaline Phosphatase 133 U/L (40-130) H 07/13/24 03:41 Lactate Dehydrogenase 462 U/L (135-225) H 07/08/24 02:38 Troponin T Baseline 57 ng/L (0-15) H 07/07/24 12:59 Troponin T 120 Minute 60.89 ng/L (0-15) H 07/07/24 14:54 Delta Troponin T 3.89 ABS# (0-10) 07/07/24 14:54 Troponin T Hi Sens 6Hr 75.96 ng/L (0-15) H 07/07/24 19:29 Troponin T Hi Sens 6Hr Delta 18.96 ng/L (0-12) H* 07/07/24 19:29 NT-Pro-B Natriuret Pep 2369 pg/mL (0-450) H 07/07/24 12:59 Total Protein 7.2 g/dL (6.6-8.7) 07/13/24 03:41 Albumin 3.6 g/dL (3.5-5.2) 07/13/24 03:41 Globulin 3.6 g/dL (1.3-4.6) 07/13/24 03:41 Procalcitonin 0.16 ng/mL (0-0.5) 07/07/24 15:39 Urine Color Yellow (Yellow) 07/09/24 15:30 Urine Appearance Clear (CLEAR) 07/09/24 15:30 Urine pH 5.5 (5-7) 07/09/24 15:30 Ur Specific [place] 1.006 (1.005-1.030) 07/09/24 15:30 Urine Protein Negative (Negative) 07/09/24 15:30 Urine Glucose (UA) Negative (Normal) 07/09/24 15:30 Urine Ketones Negative (Negative) 07/09/24 15:30 Urine Blood Negative (Negative) 07/09/24 15:30 Urine Nitrate Negative (Negative) 07/09/24 15:30 Urine Bilirubin Negative (Negative) 07/09/24 15:30 Urine Urobilinogen 0.2 mg/dL (Negative) 07/09/24 15:30 Ur Leukocyte Esterase Negative (Negative) 07/09/24 15:30 Urine RBC 0-2 /hpf (0-2) 07/09/24 15:30 Urine WBC 0-5 /hpf (0-5) 07/09/24 15:30 Ur Squamous Epith Cells 0-5 /hpf (0-5) 07/09/24 15:30 Amorphous Sediment Not Reportable 07/09/24 15:30 Urine Bacteria None seen /hpf (NONE) 07/09/24 15:30 Hyaline Casts 2.05 /lpf 07/09/24 15:30 Adenovirus (PCR) Not detected (NOT DETECT) 07/11/24 11:50 C. pneumoniae DNA (PCR) Not detected (NOT DETECT) 07/11/24 11:50 Coronavirus 229E (PCR) Not detected (NOT DETECT) 07/11/24 11:50 Human Metapneumovir PCR Not detected (NOT DETECT) 07/11/24 11:50 Influenza A (H1) PCR Not detected (NOT DETECT) 07/11/24 11:50 Influenza A (PCR) Negative (Negative) 07/07/24 13:37 Influ A (H1/09) PCR Not detected (NOT DETECT) 07/11/24 11:50 Influenza A (H3) PCR Not detected (NOT DETECT) 07/11/24 11:50 Influenza Type A (PCR) Not detected (NOT DETECT) 07/11/24 11:50 Influenza Type B (PCR) Not detected (NOT DETECT) 07/11/24 11:50 M. pneumoniae (PCR) Not detected (NOT DETECT) 07/11/24 11:50 Parainfluenza 1 (PCR) Not detected (NOT DETECT) 07/11/24 11:50 Parainfluenza 2 (PCR) Not detected (NOT DETECT) 07/11/24 11:50 Parainfluenza 3 (PCR) Not detected (NOT DETECT) 07/11/24 11:50 Parainfluenza 4 (PCR) Not detected (NOT DETECT) 07/11/24 11:50 RSV (PCR) Negative (Negative) 07/07/24 13:37 RSV Type A (PCR) Not detected (NOT DETECT) 07/11/24 11:50 RSV Type B (PCR) Not detected (NOT DETECT) 07/11/24 11:50 Entero/Rhino (PCR) Not detected (NOT DETECT) 07/11/24 11:50 SARS-CoV-2 (PCR) Not detected (NOT DETECT) 07/11/24 11:50 Blood Type AB Positive 07/07/24 12:59 Rho(D) Type Rh positive 07/07/24 12:59 Antibody Screen Negative 07/07/24 12:59 GUDELIA, Poly Interpret Negative 07/07/24 12:59 Crossmatch See Detail 07/07/24 12:59 Vitals Last Vital Signs Temp 97.6 F 07/13/24 11:58 Pulse 80 07/13/24 11:58 Resp 15 07/13/24 11:58 BP 131/72 07/13/24 11:58 Pulse Ox 97 07/13/24 11:58 O2 Del Method Room Air 07/13/24 08:04 O2 Flow Rate 2 07/10/24 03:17 Discharge Plan Discharge Patient Disposition: Home Condition: Stable Prescriptions: New levofloxacin 750 mg Tablet 750 mg PO Q48H 4 Days Qty: 2 0RF famotidine 20 mg Tablet 20 mg PO BID 30 Days Qty: 60 0RF omeprazole 20 mg capsule,delayed release(DR/EC) 20 mg PO BID 14 Days Qty: 28 0RF Continued metoprolol succinate 25 mg tablet extended release 24 hr 25 mg PO BID nitroglycerin 0.4 mg tablet, sublingual See Rx Instructions .ROUTE .COMPLEX Qty: 25 11RF Dose Instruction: DISSOLVE ONE TABLET UNDER TONGUE EVERY 5 MINUTES FOR 3 TIMES IF NO RELIEF CALL DR/OR 911 Rx Instructions: DISSOLVE ONE TABLET UNDER TONGUE EVERY 5 MINUTES FOR 3 TIMES IF NO RELIEF CALL DR/OR 911 Xanax 0.5 mg tablet 0.5 mg PO TID PRN (Reason: Anxiety) Qty: 90 3RF potassium chloride 20 mEq tablet extended release 20 meq PO DAILY Qty: 90 3RF atorvastatin 40 mg tablet 40 mg PO DAILY clopidogrel 75 mg tablet 75 mg PO DAILY Changed furosemide 80 mg tablet 60 mg PO BID Qty: 60 1RF Held sacubitril-valsartan [Entresto] 24-26 mg tablet 1 tab PO BID Qty: 180 3RF Hold Instructions: Resume on 07/20/24. hold until follow up with Dr. Carlisle on Thursday Eliquis 5 mg tablet 5 mg PO BID Hold Instructions: Resume on 07/27/24. hold until follow up with cardiology Discharge Orders: Discharge Order (Routine); Ordered 07/13/24 Ordered By: Ivana Santos Other Ambulatory Orders: Basic Metabolic Panel (Routine) Timeframe: 2 Days Facility: [facility] - Location: Lab - Main Lab Ordered By: Ivana Santos Referrals: Heidi Wilson NP [Nurse Practitioner, Cardiology] - 07/21/24 2:30 pm Fermin Carlisle MD [Primary Care Provider, Family Practice] - 07/18/24 1:30 pm Discharge Diet: Cardiac Discharge Activity: Resume usual activity Patient Instructions: Famotidine (By mouth) (Acid Controller, Acid Industrial [employer]er, Pepcid AC, Pepcid), Levofloxacin (By mouth) (Levaquin, Levaquin Leva-ludwin), Heart Failure (DC), CHF Stoplight, Opioid Safety Activity Restrictions/Additional Instructions: Take omeprazole 20Mg biD FOR 2 WEEKS, THEREAFTER CAN CHANGE TO PEPCID 20MG BID if preferred Discharge Attestations Time Spent in Discharge Care*: greater than 30 min Quality Metrics Clinical Quality Measures [ No reported AMI, CVA or VTE this stay] Coding Level of Care Code Acute Code for Chg Fwd Diagnoses Symptomatic anemia D64.9 Acute exacerbation of CHF (congestive heart failure) I50.9 Heart failure type: unspecified Primary hypertension I10 Hypertension type: primary hypertension Ischemic cardiomyopathy I25.5 Cardiomyopathy type: ischemic S/P PTCA (percutaneous transluminal coronary angioplasty) Z98.61 Atrial fibrillation, unspecified type I48.91 Atrial fibrillation type: unspecified Stenosis of carotid artery, unspecified laterality I65.29 Laterality: unspecified laterality Hyperlipidemia, unspecified hyperlipidemia type E78.5 Hyperlipidemia type: unspecified Anemia D64.9 Anemia type: unspecified type DNR (do not resuscitate) Z66 Chronic anticoagulation Z79.01
--- NOTE | 2024-07-13 13:54 | P.PN_ITS ---
<Statement entered by Juanjo Esparza M.D - 07/14/24 07:32> Patient was evaluated and cared for in conjunction with an advanced practice practitioner.? I personally examined the patient and reviewed the chart and all pertinent data including imaging, telemetry, and laboratory results.? I discussed the patient in detail with the advanced practice practitioner.? Please see? their note for complete progress note, testing results and agreed upon plan of care for the patient. Patient denies any complaint feeling much better. GENERAL: Patient is alert, awake and oriented x3. HEART: Regular S1 and S2 LUNGS: Clear to auscultate bilaterally. CENTRAL NERVOUS SYSTEM: Grossly nonfocal. EXTREMITIES: Lower extremities with out edema bilaterally. Subjective 2 Subjective: Patient -2140 Liters over 24 hours. Lasix has been decreased to 60 twice daily.He is doing well and edema has almost resolved. He denies any shortness of breath or chest pain at this time Vitals/I&O/Wt Last Vital Signs Temp 97.6 F 07/13/24 11:58 Pulse 80 07/13/24 11:58 Resp 15 07/13/24 11:58 BP 131/72 07/13/24 11:58 Pulse Ox 97 07/13/24 11:58 O2 Del Method Room Air 07/13/24 08:04 O2 Flow Rate 2 07/10/24 03:17 07/12/24 07/13/24 07/13/24 22:59 06:59 14:59 Intake Total 336 / 1096 240 / 1336 600 / 600 Output Total 1350 / 2500 750 / 3250 Balance -1014 / -1404 -510 / -1914 600 / 600 Weight last 48 hrs Weight 177 lb 3.2 oz Weight 181 lb 8 oz Physical Exam 2 Narrative: General: No apparent distress, healthy appearing, well nourished HENMT: normoceophalic Muskuloskeletal: Full ROM Respiratory: Normal respiratory effort, congested bilaterally throughout all lung blanco, no use of accessory muscles Cardio: No JVD, regular rate, regular rhythm, S1 S2 normal, no murmurs, peripheral pulses 2+ radial palpated bilaterally GI: Normal to inspection, nondistended Extremities: Full ROM, normal, normal capillary refill, 1+ edema to the top of the right foot, no edema on the left Neuro: Alert and oriented x4, no focal motor deficits Psych: Affect normal, mental status grossly normal Skin: No rashes or lesions noted, no wounds Data 07/13/24 03:41 07/13/24 03:41 Micro: Microbiology 07/07/24 13:51 Blood Culture - Final Blood NO GROWTH AFTER 5 DAYS 07/07/24 12:50 Blood Culture - Final Blood NO GROWTH AFTER 5 DAYS A&P Assessment and plan (1) Symptomatic anemia: (2) Acute exacerbation of CHF (congestive heart failure): (3) HTN (hypertension): (4) Cardiomyopathy: (5) S/P PTCA (percutaneous transluminal coronary angioplasty): (6) Atrial fibrillation: (7) Carotid stenosis: (8) Hyperlipidemia: (9) Anemia: (10) DNR (do not resuscitate): (11) Chronic anticoagulation: Plan Spoke to patient concerning anticoagulant. At this time we recommend to hold Eliquis due to occult blood positive. He will follow-up on an outpatient with PCP and GI as directed. Once cleared from them may restart Eliquis but at this time we will continue Plavix. May require watchman in the future if this continues to be an issue. From cardiology standpoint may be discharged and follow-up in the clinic in 1 week. PDMP PDMP Reviewed: Not Reviewed Attestations 2 Medical Necessity Statement*: Defer to primary Coding Level of Care Code Acute Code for [facility] Fwd Diagnoses Symptomatic anemia D64.9 Acute exacerbation of CHF (congestive heart failure) I50.9 Heart failure type: unspecified Primary hypertension I10 Hypertension type: primary hypertension Ischemic cardiomyopathy I25.5 Cardiomyopathy type: ischemic S/P PTCA (percutaneous transluminal coronary angioplasty) Z98.61 Atrial fibrillation, unspecified type I48.91 Atrial fibrillation type: unspecified Stenosis of carotid artery, unspecified laterality I65.29 Laterality: unspecified laterality Hyperlipidemia, unspecified hyperlipidemia type E78.5 Hyperlipidemia type: unspecified Anemia D64.9 Anemia type: unspecified type DNR (do not resuscitate) Z66 Chronic anticoagulation Z79.01
[2024-07-14 01:34] LABS: Fibrinogen Degradation Product <5 mcg/mL (LESS THAN 5)
== END 2024-07-13 11:30 | disposition home or self-care (01) | DRG 291 ==
LOC: ER 15:26 → CSU 16:38
PROVIDERS: Emergency Medicine; Family Medicine; Internal Medicine; Admitting Provider Internal Medicine; Emergency Provider Physician Assistant; PCP Family Medicine; Visit Provider Student in an Organized Health Care Education/Training Program
DX: I11.0 Hypertensive heart disease with heart failure (principal); I50.43 Acute on chronic combined systolic (congestive) and diastolic (congestive) heart failure; J91.8 Pleural effusion in other conditions classified elsewhere; I48.91 Unspecified atrial fibrillation; Z66 Do not resuscitate; I25.5 Ischemic cardiomyopathy; K59.00 Constipation, unspecified; D72.829 Elevated white blood cell count, unspecified; I25.10 Atherosclerotic heart disease of native coronary artery without angina pectoris; E78.5 Hyperlipidemia, unspecified; I65.29 Occlusion and stenosis of unspecified carotid artery; K21.9 Gastro-esophageal reflux disease without esophagitis; D64.9 Anemia, unspecified; Z87.891 Personal history of nicotine dependence; Z95.5 Presence of coronary angioplasty implant and graft; Z95.810 Presence of automatic (implantable) cardiac defibrillator; Z11.52 Encounter for screening for COVID-19; Z79.01 Long term (current) use of anticoagulants; Z79.02 Long term (current) use of antithrombotics/antiplatelets; Z79.899 Other long term (current) drug therapy; Z88.8 Allergy status to other drugs, medicaments and biological substances; Z88.6 Allergy status to analgesic agent; Z88.2 Allergy status to sulfonamides
CPT/HCPCS: 32555; 36415; 36430; 71045; 71250; 74176; 76604; 80053; 80503; 81001; 82274; 82728; 83010; 83036; 83540; 83550; 83605; 83615; 83735; 83880; 84145; 84484; 85025; 85045; 85362; 85378; 85384; 85610; 85730; 86850; 86880; 86900; 86920; 87040; 87486; 87581; 87633; 87637; 93005; 93306; 93970; 94640; 94664; 94760; 96365; 96366; 96375; 96376; 99285; J1630; J1756; J1938; J1940; J7512; J9999; P9016

== ENCOUNTER → 2024-07-18 13:53 | Outpatient (BNVA) | payer MEDICARE, OTHER, SELFPAY | PROVIDERS: PCP Family Medicine; Visit Provider Family Medicine | DX: D64.9 Anemia, unspecified (principal); R30.0 Dysuria | CPT/HCPCS: 80048; 81000; 85025; 87077; 87086; 87184 ==

== ENCOUNTER → 2024-07-21 14:20 | Outpatient (BNVA) | payer MEDICARE, OTHER, SELFPAY | PROVIDERS: PCP Family Medicine; Visit Provider Nurse Practitioner Family | DX: Z09 Encounter for follow-up examination after completed treatment for conditions other than malignant neoplasm (principal); I11.0 Hypertensive heart disease with heart failure; I50.22 Chronic systolic (congestive) heart failure; D64.9 Anemia, unspecified; Z79.01 Long term (current) use of anticoagulants; Z87.891 Personal history of nicotine dependence | CPT/HCPCS: 99213 ==

== ENCOUNTER → 2024-07-26 14:54 | Outpatient (BNVA) | payer MEDICARE, OTHER, SELFPAY | PROVIDERS: PCP Family Medicine; Visit Provider Family Medicine | DX: I50.22 Chronic systolic (congestive) heart failure (principal) | CPT/HCPCS: 80048 ==

== ENCOUNTER → 2024-07-27 11:10 | Outpatient (BNVA) | payer MEDICARE, OTHER, SELFPAY | PROVIDERS: PCP Family Medicine; Visit Provider Internal Medicine Cardiovascular Disease | DX: Z45.02 Encounter for adjustment and management of automatic implantable cardiac defibrillator (principal) | CPT/HCPCS: 93296 ==

== ENCOUNTER → 2024-08-09 13:37 | Outpatient (BNVA) | payer MEDICARE, OTHER, SELFPAY | PROVIDERS: PCP Family Medicine; Visit Provider Family Medicine | DX: I50.22 Chronic systolic (congestive) heart failure (principal); R06.2 Wheezing | CPT/HCPCS: 80048; 83880 ==

== ENCOUNTER → 2024-08-22 16:34 | Outpatient (BNVA) | payer MEDICARE, OTHER, SELFPAY | PROVIDERS: PCP Family Medicine; Visit Provider Internal Medicine | DX: I11.0 Hypertensive heart disease with heart failure (principal); I50.9 Heart failure, unspecified; I25.5 Ischemic cardiomyopathy; I65.29 Occlusion and stenosis of unspecified carotid artery; I25.10 Atherosclerotic heart disease of native coronary artery without angina pectoris; E78.5 Hyperlipidemia, unspecified; I48.91 Unspecified atrial fibrillation; Z79.01 Long term (current) use of anticoagulants; Z95.810 Presence of automatic (implantable) cardiac defibrillator; Z98.61 Coronary angioplasty status; Z87.891 Personal history of nicotine dependence | CPT/HCPCS: 99214 ==

== ENCOUNTER → 2024-08-25 12:43 | Outpatient (BNVA) | payer MEDICARE, OTHER, SELFPAY | PROVIDERS: PCP Family Medicine; Visit Provider Family Medicine | DX: I10 Essential (primary) hypertension (principal); I25.5 Ischemic cardiomyopathy; I50.22 Chronic systolic (congestive) heart failure | CPT/HCPCS: 80048 ==

== ENCOUNTER → 2024-08-29 10:13 | Outpatient (BNVA) | payer MEDICARE, OTHER, SELFPAY | PROVIDERS: PCP Family Medicine; Visit Provider Family Medicine | DX: I50.22 Chronic systolic (congestive) heart failure (principal) | CPT/HCPCS: 80048 ==

== ENCOUNTER → 2024-09-05 15:43 | Outpatient (BNVA) | payer MEDICARE, OTHER, SELFPAY | PROVIDERS: PCP Family Medicine; Visit Provider Family Medicine | DX: I48.91 Unspecified atrial fibrillation (principal); I50.22 Chronic systolic (congestive) heart failure; I10 Essential (primary) hypertension | CPT/HCPCS: 80048 ==

== ENCOUNTER → 2024-09-27 10:33 | Outpatient (BNVA) | payer MEDICARE, OTHER, SELFPAY | PROVIDERS: PCP Family Medicine; Visit Provider Family Medicine | DX: I10 Essential (primary) hypertension (principal); I48.91 Unspecified atrial fibrillation; I50.22 Chronic systolic (congestive) heart failure | CPT/HCPCS: 80053; 85025 ==

== ENCOUNTER → 2024-10-06 10:07 | Outpatient (BNVA) | payer MEDICARE, OTHER, SELFPAY | PROVIDERS: PCP Family Medicine; Visit Provider Family Medicine | DX: I50.22 Chronic systolic (congestive) heart failure (principal) | CPT/HCPCS: 80048 ==

== ENCOUNTER → 2024-11-01 15:08 | Outpatient (BNVA) | payer MEDICARE, OTHER, SELFPAY | PROVIDERS: PCP Family Medicine; Visit Provider Family Medicine | DX: I10 Essential (primary) hypertension (principal) | CPT/HCPCS: 80048 ==

== ENCOUNTER → 2024-11-17 16:14 | Outpatient (BNVA) | payer MEDICARE, OTHER, SELFPAY | PROVIDERS: PCP Family Medicine; Visit Provider Family Medicine | DX: I50.22 Chronic systolic (congestive) heart failure (principal) | CPT/HCPCS: 80048 ==

== ENCOUNTER 2024-11-23 14:18 | Outpatient (CLI) | payer MEDICARE, OTHER, SELFPAY ==
--- NOTE | 2024-11-23 14:30 | CT_ITS ---
WS: [id number] CT LUMBAR SPINE, noncontrast. HISTORY: back pain, RIGHT pain. TECHNIQUE: Contiguous 2.0 mm axial imaging are performed. Sagittal and coronal reformats are submitted and reviewed. All CT scans at [facility] use at least one of these dose optimization techniques: automated exposure control; mA and/or kV adjustment per patient size (includes targeted exams where dose is matched to clinical indication); or iterative reconstruction. IV contrast: None DLP: 558.55 mGy.cm COMPARISON: 04/14/2023 Normal lumbar alignment. Disc spaces are well preserved. Very slight narrowing of the L5-S1 disc space. Increasing calcific deposit within the L5-S1 disc since the prior study. Facet joints are normally aligned. L1-2: Normal. L2-3: Mild annular disc bulging. Mild facet and ligamentum flavum hypertrophy. Very minimal central and subarticular recess stenosis. L3-4: Mild annular disc bulging with mild facet and ligamentum flavum hypertrophy. There is a new tiny RIGHT foraminal disc protrusion which does not appear to be contacting and nerve root. Mild central and subarticular recess stenosis. L4-5: Diffuse annular disc bulging moderate sized RIGHT paracentral and RIGHT subarticular recess disc protrusion. Disc protrusion does appear to be increased in size since the prior study. There is significant contact on the thecal sac and the traversing RIGHT L5 nerve root. Disc extends slightly into the RIGHT foramen. No significant foraminal stenosis. L5-S1: Diffuse annular disc bulging with osteophytic ridging. Bilateral foraminal disc osteophyte complexes causing moderate stenosis. There is slight contact also by osteophyte on the S1 nerve roots. Dense calcification within the aorta and mesenteric arteries. No aneurysm. CT/CT lumbar spine wo con* [id number] IMPRESSION: 1. No compression fractures. 2. Moderate sized RIGHT paracentral and RIGHT subarticular recess disc protrus ion which has increased in size since the prior study. There is greater contact on the thecal sac and the traversing RIGHT L5 nerve root. No significant john paul inal stenosis. 3. L5-S1: Bilateral foraminal disc osteophyte complexes causing moderate john paul inal stenosis. There is also osteophyte contact on the S1 nerve roots bilateral ly. 4. Very mild central stenosis now present at L2-3 and L3-4.
== END 2024-11-23 14:19 | disposition home or self-care (01) ==
LOC: RAD 14:19
PROVIDERS: PCP Family Medicine; Visit Provider Family Medicine
DX: M51.16 Intervertebral disc disorders with radiculopathy, lumbar region (principal)
CPT/HCPCS: 72131

== ENCOUNTER → 2024-12-06 15:07 | Outpatient (BNVA) | payer MEDICARE, OTHER, SELFPAY | PROVIDERS: PCP Family Medicine; Visit Provider Internal Medicine | DX: I11.0 Hypertensive heart disease with heart failure (principal); I50.9 Heart failure, unspecified; I65.29 Occlusion and stenosis of unspecified carotid artery; I42.9 Cardiomyopathy, unspecified; I25.10 Atherosclerotic heart disease of native coronary artery without angina pectoris; E78.5 Hyperlipidemia, unspecified; I48.91 Unspecified atrial fibrillation; Z79.01 Long term (current) use of anticoagulants; Z95.810 Presence of automatic (implantable) cardiac defibrillator; Z98.61 Coronary angioplasty status | CPT/HCPCS: 99214 ==

== ENCOUNTER → 2024-12-07 11:51 | Outpatient (BNVA) | payer MEDICARE, OTHER, SELFPAY | PROVIDERS: PCP Family Medicine; Visit Provider Family Medicine | DX: R30.0 Dysuria (principal); N39.0 Urinary tract infection, site not specified | CPT/HCPCS: 81000; 87077; 87086; 87184 ==

== ENCOUNTER → 2024-12-13 14:09 | Outpatient (BNVA) | payer MEDICARE, OTHER, SELFPAY | PROVIDERS: PCP Family Medicine; Visit Provider Family Medicine | DX: I50.22 Chronic systolic (congestive) heart failure (principal); I10 Essential (primary) hypertension; I50.9 Heart failure, unspecified | CPT/HCPCS: 80048; 85025 ==

== ENCOUNTER → 2025-01-25 12:57 | Outpatient (BNVA) | payer MEDICARE, OTHER, SELFPAY | PROVIDERS: PCP Family Medicine; Visit Provider Internal Medicine Cardiovascular Disease | DX: Z45.02 Encounter for adjustment and management of automatic implantable cardiac defibrillator (principal) | CPT/HCPCS: 93296 ==

== ENCOUNTER → 2025-02-14 11:11 | Outpatient (BNVA) | payer MEDICARE, OTHER, SELFPAY | PROVIDERS: PCP Family Medicine; Visit Provider Family Medicine | DX: I25.5 Ischemic cardiomyopathy (principal); I10 Essential (primary) hypertension; I25.10 Atherosclerotic heart disease of native coronary artery without angina pectoris; I48.91 Unspecified atrial fibrillation | CPT/HCPCS: 80053; 80061; 85025 ==